=== PATIENT | female | born 1950 | race Caucasian/White ===

== ENCOUNTER → 2016-09-22 | Outpatient (CLI) | payer MEDICARE ==
--- NOTE | 2016-09-23 12:00 | MM ---
Reason for exam: screening (asymptomatic). Last mammogram was performed 1 year and 2 months ago. History: Patient is postmenopausal. Family history of premenopausal breast cancer in sister at age 40. Took estrogen for 2 years 6 months. Physical Findings: A clinical breast exam by your physician is recommended on an annual basis and results should be correlated with mammographic findings. MG 3D Screening Mammo W/Cad Bilateral CC and MLO view(s) were taken. Prior study comparison: July 17, 2015, bilateral MG 3d screening mammo w/cad. July 20, 2012, bilateral digital screening mammo w/CAD. The breast tissue is heterogeneously dense. This may lower the sensitivity of mammography. There is chronic nodularity in the left breast. Loosly grouped calcification in the 2-3 o'clock left breast are unchanged for 2 years. No significant changes when compared with prior studies. ASSESSMENT: Negative, BI-RAD 1 RECOMMENDATION: Routine screening mammogram of both breasts in 1 year.
== END | disposition home or self-care (01) ==
LOC: RADMAMWWP 13:16
PROVIDERS: ATTEND Family Medicine
DX: Z12.31 Encounter for screening mammogram for malignant neoplasm of breast (principal)
CPT/HCPCS: 77063; G0202

== ENCOUNTER 2016-10-19 13:18 | Inpatient (IN) | payer MEDICARE ==
[2016-10-19] MEDS ORDERED: RX INFO: IV CONTRAST WAS GIVEN 1 EACH MISC MISCELLANE PRN (13:23)
[2016-10-19] MEDS ORDERED: SODIUM CHLORIDE 0.9% 1,000 ML IV STA (13:23)
[2016-10-19 13:27] LABS: Glucose,Whole Blood 96 mg/dL (75-99)
[2016-10-19 13:36] LABS: Basophils # (A) 0.1 k/uL (0-0.2); Basophils % (A) 1 %; CHCM 33.5; Eosinophils # (A) 0.3 k/uL (0-0.7); Eosinophils % (A) 4 %; HCT 45.8 % (34.0-46.0); HDW 2.37; HGB 15.4 gm/dL (11.4-16.0); Luc # (Auto) 0.27; Luc % (Auto) 3; Lymphocytes # (A) 2.1 k/uL (1.0-4.8); Lymphocytes % (A) 27 %; MCH 29.1 pg (25.0-35.0); MCHC 33.5 g/dL (31.0-37.0); MCV 86.6 fL (80.0-100.0); Mean Platelet Volume 7.4; Monocytes # (A) 0.4 k/uL (0-1.0); Monocytes % (A) 5 %; Neutrophils # (A) 4.7 k/uL (1.3-7.7); Neutrophils % (A) 60 %; RBC 5.29 m/uL (3.80-5.40); RDW 13.6 % (11.5-15.5); WBC 7.8 k/uL (3.8-10.6); WBC (Perox) 7.83
[2016-10-19 13:44] LABS: ALT 21 U/L (9-52); AST 22 U/L (14-36); Alkaline Phosphatase 109 U/L (38-126); Anion Gap 13 mmol/L; Blood Urea Nitrogen 14 mg/dL (7-17); Calcium 10.1 mg/dL (8.4-10.2); Carbon Dioxide 24 mmol/L (22-30); Chloride 99 mmol/L (98-107); Glucose 102 mg/dL (74-99); Magnesium 2.1 mg/dL (1.6-2.3); Non-African American GFR(MDRD) >60 (>60 ml/min/1.73 sqM); Phosphorous 3.2 mg/dL (2.5-4.5); Sodium 136 mmol/L (137-145); Total Bilirubin 0.8 mg/dL (0.2-1.3); Total Protein 7.6 g/dL (6.3-8.2)
[2016-10-19] MEDS ORDERED: hydrALAZINE HCL 20 MG/ML 1 ML VIAL IVP STA (13:46)
--- NOTE | 2016-10-19 13:46 | ED ---
General Adult HPI - General Chief complaint: Neuro Symptoms/Deficit Stated complaint: POSS CVA Time Seen by Provider: 10/19/16 13:22 Source: EMS, RN notes reviewed, old records reviewed Mode of arrival: EMS Limitations: no limitations - History of Present Illness Initial comments: This is a 66-year-old female ER for evaluation of syncopal event head trauma and unresponsiveness. Patient's unable to give history secondary to clinical condition, not responding, patient brought in by EMS for evaluation of patient, patient having unresponsive episode after falling. History obtained from EMS and staff and patient's chart - Related Data Home Medications Medication Instructions Recorded Confirmed Lisinopril-Hctz 20-12.5 mg 1 tab PO DAILY 05/22/15 10/19/16 [Zestoretic 20-12.5] levETIRAcetam [Keppra] 500 mg PO Q12HR 05/22/15 10/19/16 Levothyroxine Sodium [Synthroid] 88 mcg PO DAILY 12/17/15 10/19/16 Acetaminophen Tab [Tylenol Tab] 325 - 650 mg PO Q6H PRN 10/19/16 10/19/16 Multivitamin [Multivitamins Adult 1 tab PO DAILY 10/19/16 10/19/16 Gummies] [place]-3S/Dha/Epa/Fish Oil/D3 [Fish 1 tab PO DAILY 10/19/16 10/19/16 Oil Gummies] Previous Rx's Medication Instructions Recorded Pantoprazole Sodium [Protonix] 40 mg PO DAILY #90 tablet. 09/06/15 Allergies Allergy/AdvReac Type Severity Reaction Status Date / Time codeine Allergy Unknown Verified 10/19/16 13:52 ibuprofen AdvReac ulcer Verified 10/19/16 13:52 monosodium glutamate [MSG] AdvReac Nausea & Verified 10/19/16 13:52 Vomiting & Diarrhea sodium AdvReac Nausea & Verified 10/19/16 13:23 Vomiting & Diarrhea Review of Systems ROS Statement: Those systems with pertinent positive or pertinent negative responses have been documented in the HPI. ROS Other: All systems not noted in ROS Statement are negative. Past Medical History Past Medical History: CVA/TIA, Hyperlipidemia, Hypertension, Myocardial Infarction ([place]), Osteoarthritis (OA), Seizure Disorder, Syncope, Thyroid Disorder Additional Past Medical History / Comment(s): Seizures-last one in fall of 2014 , syncopal episodes-once due to gastric ulcer bleed with transfusion, possible TIA, DJD, generalized arthritis, hypothyroid, [place] in 2003. Last Myocardial Infarction Date:: 2003 History of Any Multi-Drug Resistant Organisms: None Reported Past Surgical History: Adenoidectomy, Appendectomy, Section, Heart Catheterization, Hysterectomy, Orthopedic Surgery, Tonsillectomy Additional Past Surgical History / Comment(s): 09/06/15 EGD with bx and colonoscopy, C-Sections x3, hammer toe sx ananya feet, gland removed from L side of neck, 2003 cardiac cath Additional Past Anesthesia/Blood Transfusion Reaction / Comment(s): difficulty waking after aa. Pt states she has received blood before without reaction. Past Psychological History: No Psychological Hx Reported Additional Psychological History / Comment(s): Pt resides with spouse and a dog. She is independent. She drives. Smoking Status: Never smoker Past Alcohol Use History: None Reported Past Drug Use History: None Reported - Past Family History Mother Family Medical History: Dementia Additional Family Medical History / Comment(s): Had 13 children. She of dementia at the age of 81 yrs. Father Family Medical History: Myocardial Infarction ([place]) Additional Family Medical History / Comment(s): from head injury General Exam - General Exam Comments Initial Comments: Patient unresponsive, NIH, gaze, dominant left Limitations: no limitations General appearance: alert, in no apparent distress Head exam: Present: atraumatic, normocephalic, normal inspection Eye exam: Present: normal appearance, PERRL, EOMI. Absent: scleral icterus, conjunctival injection, periorbital swelling ENT exam: Present: normal exam, mucous membranes moist Neck exam: Present: normal inspection. Absent: tenderness, meningismus, lymphadenopathy Respiratory exam: Present: normal lung sounds bilaterally. Absent: respiratory distress, wheezes, rales, rhonchi, stridor Cardiovascular Exam: Present: regular rate, normal rhythm, normal heart sounds. Absent: systolic murmur, diastolic murmur, rubs, gallop, clicks GI/Abdominal exam: Present: soft, normal bowel sounds. Absent: distended, tenderness, guarding, rebound, rigid Extremities exam: Present: normal inspection, full ROM, normal capillary refill. Absent: tenderness, pedal edema, joint swelling, calf tenderness Back exam: Present: normal inspection Neurological exam: Present: alert, oriented X3, CN II-XII intact Psychiatric exam: Present: normal affect, normal mood Skin exam: Present: warm, dry, intact, normal color. Absent: rash Course Vital Signs 10/19/16 10/19/16 10/19/16 13:19 13:26 13:32 Pulse Rate 61 58 L 56 L Respiratory 18 18 18 Rate Blood Pressure 202/140 106/59 112/61 O2 Sat by Pulse 98 97 99 Oximetry 10/19/16 10/19/16 13:37 13:52 Pulse Rate 54 L 72 Respiratory 18 18 Rate Blood Pressure 112/62 135/63 O2 Sat by Pulse 100 100 Oximetry - Reevaluation(s) Reevaluation #1: 10/19/16 14:07 Code stroke was paged, neuro interventionalists evaluating patient Reevaluation #2: 10/19/16 14:07 At this time patient's symptoms have returned to baseline, she is awake and alert and NIH of 0 10/19/16 14:07 No gaze preference EKG Findings - EKG Comments: EKG Findings:: EKG shows normal sinus rhythm rate of 86, TX 196, QRS 76, QTC 394 Medical Decision Making - Medical Decision Making 6 mL ER for evaluation of altered mental status, patient originally was neurologic with down gaze, neurological symptoms have resolved, patient does have history of epilepsy buttocks and into no epileptic activity. Patient currently NIH of 0, will admit for neurological evaluation and treatment - Lab Data Result diagrams: 10/19/16 13:23 10/19/16 13:23 Lab Results 10/19/16 10/19/16 10/19/16 Range/Units 13:21 13:23 13:23 WBC 7.8 (3.8-10.6) k/uL RBC 5.29 (3.80-5.40) m/uL Hgb 15.4 (11.4-16.0) gm/dL Hct 45.8 (34.0-46.0) % MCV 86.6 (80.0-100.0) fL MCH 29.1 (25.0-35.0) pg MCHC 33.5 (31.0-37.0) g/dL RDW 13.6 (11.5-15.5) % Plt Count 339 (150-450) k/uL Neutrophils % 60 % Lymphocytes % 27 % Monocytes % 5 % Eosinophils % 4 % Basophils % 1 % Neutrophils # 4.7 (1.3-7.7) k/uL Lymphocytes # 2.1 (1.0-4.8) k/uL Monocytes # 0.4 (0-1.0) k/uL Eosinophils # 0.3 (0-0.7) k/uL Basophils # 0.1 (0-0.2) k/uL PT (9.0-12.0) sec INR (<1.1) APTT (22.0-30.0) sec Sodium (137-145) mmol/L Potassium (3.5-5.1) mmol/L Chloride (98-107) mmol/L Carbon Dioxide (22-30) mmol/L Anion Gap mmol/L BUN (7-17) mg/dL Creatinine (0.52-1.04) mg/dL Est GFR (MDRD) Af Amer (>60 ml/min/1.73 sqM) Est GFR (MDRD) Non-Af (>60 ml/min/1.73 sqM) Glucose (74-99) mg/dL POC Glucose (mg/dL) 96 (75-99) mg/dL POC Glu Director Supplier Quality ID Saeed Agrawal Plasma Lactic Acid Gavino (0.7-2.0) mmol/L Calcium (8.4-10.2) mg/dL Phosphorus (2.5-4.5) mg/dL Magnesium (1.6-2.3) mg/dL Total Bilirubin (0.2-1.3) mg/dL AST (14-36) U/L ALT (9-52) U/L Alkaline Phosphatase (38-126) U/L Total Creatine Kinase 59 (30-135) U/L CK-MB (CK-2) 0.3 (0.0-2.4) ng/mL CK-MB (CK-2) Rel Index 0.5 Troponin I <0.012 (0.000-0.034) ng/mL Total Protein (6.3-8.2) g/dL Albumin (3.5-5.0) g/dL 10/19/16 10/19/16 10/19/16 Range/Units 13:23 13:23 13:23 WBC (3.8-10.6) k/uL RBC (3.80-5.40) m/uL Hgb (11.4-16.0) gm/dL Hct (34.0-46.0) % MCV (80.0-100.0) fL MCH (25.0-35.0) pg MCHC (31.0-37.0) g/dL RDW (11.5-15.5) % Plt Count (150-450) k/uL Neutrophils % % Lymphocytes % % Monocytes % % Eosinophils % % Basophils % % Neutrophils # (1.3-7.7) k/uL Lymphocytes # (1.0-4.8) k/uL Monocytes # (0-1.0) k/uL Eosinophils # (0-0.7) k/uL Basophils # (0-0.2) k/uL PT 10.3 (9.0-12.0) sec INR 1.0 (<1.1) APTT 20.7 L (22.0-30.0) sec Sodium 136 L (137-145) mmol/L Potassium 4.0 (3.5-5.1) mmol/L Chloride 99 (98-107) mmol/L Carbon Dioxide 24 (22-30) mmol/L Anion Gap 13 mmol/L BUN 14 (7-17) mg/dL Creatinine 0.87 (0.52-1.04) mg/dL Est GFR (MDRD) Af Amer >60 (>60 ml/min/1.73 sqM) Est GFR (MDRD) Non-Af >60 (>60 ml/min/1.73 sqM) Glucose 102 H (74-99) mg/dL POC Glucose (mg/dL) (75-99) mg/dL POC Glu Director Supplier Quality ID Plasma Lactic Acid Gavino 2.3 H* (0.7-2.0) mmol/L Calcium 10.1 (8.4-10.2) mg/dL Phosphorus 3.2 (2.5-4.5) mg/dL Magnesium 2.1 (1.6-2.3) mg/dL Total Bilirubin 0.8 (0.2-1.3) mg/dL AST 22 (14-36) U/L ALT 21 (9-52) U/L Alkaline Phosphatase 109 (38-126) U/L Total Creatine Kinase (30-135) U/L CK-MB (CK-2) (0.0-2.4) ng/mL CK-MB (CK-2) Rel Index Troponin I (0.000-0.034) ng/mL Total Protein 7.6 (6.3-8.2) g/dL Albumin 4.5 (3.5-5.0) g/dL - Radiology Data Radiology results: report reviewed (Chest x-ray negative for acute disease, CT brain CTA head and neck is negative for acute embolic stroke), image reviewed Critical Care Time Critical Care Time: Yes Total Critical Care Time: 31 Disposition Clinical Impression: Cerebrovascular accident Disposition: ADMITTED IP TO THIS [facility] Condition: Fair Referrals: Sherwin Hernandez MD [Primary Care Provider] - 1-2 days
[2016-10-19 13:58] LABS: Prothrombin Time 10.3 sec (9.0-12.0)
--- NOTE | 2016-10-19 14:00 | CT ---
EXAMINATION TYPE: CT brain davida wo con DATE OF EXAM: 10/19/2016 1:47 PM COMPARISON: Previous study dated 09/01/2015 HISTORY: Fall, posssible CVA CT DLP: 2078.9 mGycm Automated exposure control for dose reduction was used. FINDINGS: There are mild, generalized changes of sulcal prominence and ventriculomegaly compatible with chronic atrophy. There is diffuse periventricular white matter lucency, compatible with chronic white matter ischemic change. There is no acute focal lesion, mass effect or midline shift identified. I do not s ee evidence of intracranial blood. There is chronic mucoperiosteal thickening involving the left sided maxillary sinus. There is emphysematous change and coarse interstitial fibrosis involving apices of both lungs. This a ppears to have progressed from previous. Prevertebral soft tissues appear unremarkable. Vertebral body height and alignment are maintained. Atlantoaxial relationships are normal. There is diffuse degenerative disc disease, hypertrophic spondylosis and uncovertebral joint disease involving the entire cervical spine with relative sparing of the C2-3 level. No fractures are seen. N o definite discal protrusion is seen. IMPRESSION: 1. NO ACUTE INTRACRANIAL ABNORMALITY. 2. CHRONIC LEFT-SIDED MAXILLARY SINUS DISEASE. 3. NO ACUTE OSSEOUS LESION INVOLVING THE CERVICAL SPINE. 4. DIFFUSE DEGENERATIVE CHANGE.
[2016-10-19 14:01] LABS: Creatine Kinase 59 U/L (30-135)
--- NOTE | 2016-10-19 14:07 | CT ---
EXAMINATION TYPE: CT angio head neck DATE OF EXAM: 10/19/2016 1:59 PM COMPARISON: NONE HISTORY: Fall possible CVA CT DLP: 2078.9 mGycm Automated exposure control for dose reduction was used. TECHNIQUE: Performed with IV Contrast, patient injected with 65 mL of Omnipaque 350. FINDINGS: There is coarse interstitial change and emphysematous change in the visualized portions of the lungs. There is some shotty adenopathy in the deep cervical chain bilaterally, greater on the right than the left. Prevertebral soft tissues are otherwise unremarkable. There is a normal origin of the great vessels. The right vertebral artery is dominant. There is no significant atheromatous change involving either carotid bulb. There is a tiny amount of calcium on the left. There is no significant stenosis in either carotid artery. IMPRESSION: 1. NO SIGNIFICANT STENOSIS IN EITHER CAROTID SYSTEM. 2. MINIMAL ATHEROMATOUS CALCIFICATION OF THE LEFT CAROTID BULB. 3. COARSE INTERSTITIAL CHANGE IN THE UPPER LOBES BILATERALLY.
[2016-10-19 14:10] LABS: Partial Thromboplastin Time 20.7 sec (22.0-30.0)
[2016-10-19 14:13] LABS: Creatine Kinase MB 0.3 ng/mL (0.0-2.4); Troponin I <0.012 ng/mL (0.000-0.034)
[2016-10-19] MEDS ORDERED: ASPIRIN 325 MG TAB PO STA (14:56)
--- NOTE | 2016-10-19 14:58 | XR ---
EXAMINATION TYPE: XR chest 1V portable DATE OF EXAM: 10/19/2016 2:53 PM HISTORY: ams. REFERENCE: Previous study dated 12/17/2015. FINDINGS: The patient has taken a poor inspiration. There is atelectatic change present at both lung bases and in the right upper lobe. The heart is mild ly enlarged. Pleural spaces appear clear. IMPRESSION: 1. CARDIOMEGALY. 2. BIBASILAR ATELECTASIS. 3. AIRSPACE DISEASE IN THE RIGHT UPPER LOBE MAY REPRESENT ADDITIONAL ATELECTASIS OR EARLY PNEUMONIA. PLEASE CORRELATE CLINICALLY.
[2016-10-19] MEDS: SODIUM CHLORIDE 0.9% 1,000 ML IV SCH ×2 (15:39→21:08)
--- NOTE | 2016-10-19 16:02 | US ---
EXAMINATION TYPE: US carotid duplex BILAT DATE OF EXAM: 10/19/2016 3:39 PM COMPARISON: NONE CLINICAL HISTORY: Stenosis, syncope and collapse. EXAM MEASUREMENTS: RIGHT: Peak Systolic Velocity (PSV) cm/sec ----- Right CCA: 47.2 ----- Right ICA: 60.6 ----- Right ECA: 45.3 ICA/CCA ratio: 1.3 RIGHT: End Diastole cm/sec ----- Right CCA: 16.9 ----- Right ICA: 23.0 ----- Right ECA: 0.0 LEFT: Peak Systolic Velocity (PSV) cm/sec ----- Left CCA: 60.1 ----- Left ICA: 58.6 ----- Left ECA: 50.5 ICA/CCA ratio: 1.0 LEFT: End Diastole cm/sec ----- Left CCA: 18.6 ----- Left ICA: 23.4 ----- Left ECA: 6.5 VERTEBRALS (direction of flow): Right Vertebral: Antegrade Left Vertebral: Antegrade TECHNOLOGIST IMPRESSION: No significant velocity increases seen bilaterally. IMPRESSION: I DO NOT SEE EVIDENCE OF A HEMODYNAMICALLY SIGNIFICANT STENOSIS INVOLVING EITHER CAROTID SYSTEM. Criteria for Assigning % of Stenosis / Diameter reduction (Estimation based on the indirect measurements of the internal carotid artery velocities (ICA PSV). 1. Normal (no stenosis)=ICA PSV < 125 cm/s: ratio < 2.0: ICA EDV<40 cm/s. 2. Less than 50% stenosis=ICA PSV < 125 cm/s: ratio < 2.0: ICA EDV<40 cm/s. 3. 50 to 69% stenosis=ICA PSV of 125 to 230 cm/s: ration 2.0 ? 4.0: ICA EDV 40-100 cm/s. 4. Greater than 70% stenosis to near occlusion= ICA PSV > 230 cm/s: ratio > 4.0: ICA EDV > 100 cm/s. 5. Near occlusion= ICA PSV velocities may be low or undetectable: variable ratio and ICA EDV. 6. Total occlusion=unable to detect flow.
[2016-10-19 19:06] VITALS: BMI 32.2
[2016-10-19 19:28] LABS: Appearance,Urine Clear (Clear); Bilirubin,Urine Negative (Negative); Glucose,Urine (UA) Negative (Negative); Ketones,Urine Negative (Negative); Leukocyte Esterase,Urine Negative (Negative); Nitrite,Urine Negative (Negative); PH, Urine 6.5 (5.0-8.0); Protein,Urine Negative (Negative); Specific Gravity,Urine 1.025 (1.001-1.035); UA Billing (MACRO vs. MICRO) CHEM; Urobilinogen,Urine <2.0 mg/dL (<2.0)
[2016-10-19] MEDS: levETIRAcetam 500 MG TAB PO SCH (21:07)
[2016-10-20] MEDS: PANTOPRAZOLE 40 MG TABLET PO SCH (06:52)
[2016-10-20] MEDS: LEVOTHYROXINE 88 MCG TAB PO SCH (06:52)
[2016-10-20] MEDS: LISINOPRIL-HCTZ 20-12.5 MG 1 EACH TAB PO SCH (07:52)
[2016-10-20] MEDS: levETIRAcetam 500 MG TAB PO SCH ×2 (07:52→21:04)
[2016-10-20] MEDS: ASPIRIN 325 MG TAB PO SCH (08:56)
--- NOTE | 2016-10-20 10:41 | ECHOF ---
Referral Reason:Thrombus MEASUREMENTS -------- HEIGHT: 162.6 cm WEIGHT: 69.4 kg BP: 127/68 RVIDd: 3.1 cm (< 3.3) IVSd: 1.4 cm (0.6 - 1.1) LVIDd: 3.7 cm (3.9 - 5.3) LVPWd: 1.2 cm (0.6 - 1.1) IVSs: 1.5 cm LVIDs: 2.6 cm LVPWs: 1.6 cm LA Diam: 3.5 cm (2.7 - 3.8) LAESV Index (A-L): 23.60 ml/m Ao Diam: 2.9 cm (2.0 - 3.7) AV Cusp: 2.0 cm (1.5 - 2.6) MV EXCURSION: 14.317 mm (> 18.000) MV EF SLOPE: 37 mm/s (70 - 150) EPSS: 0.3 cm MV E Edgardo: 0.84 m/s MV DecT: 246 ms MV A Edgardo: 1.07 m/s MV E/A Ratio: 0.79 RAP: 5.00 mmHg RVSP: 28.81 mmHg FINDINGS -------- Sinus rhythm. This was a technically good study. The left ventricular size is normal. There is moderate concentric left ventricular hypertrophy. Overall left ventricular systolic function is normal with, an EF between 60 - 65 %. Sigmoid shaped septum with focal hypertrophy of the basal septum. The right ventricle is normal in size. Normal LA size by volume 22+/-6 ml/m2. The right atrium is normal in size. Aortic valve is trileaflet and is mildly thickened. There is trace to mild mitral regurgitation. Mild tricuspid regurgitation present. Right ventricular systolic pressure is normal at < 35 mmHg. The pulmonic valve is normal. There is no pulmonic regurgitation present. The aortic root size is normal. Normal inferior vena cava with normal inspiratory collapse consistent with estimated right atrial pressure of 5 mmHg. There is no pericardial effusion. CONCLUSIONS -------- 1. Sinus rhythm. 2. Right ventricular systolic pressure is normal at < 35 mmHg. 3. The pulmonic valve is normal. 4. The aortic root size is normal. 5. Normal inferior vena cava with normal inspiratory collapse consistent with estimated right atrial pressure of 5 mmHg. 6. There is no pericardial effusion. 7. This was a technically good study. 8. Sigmoid shaped septum with focal hypertrophy of the basal septum. 9. The right ventricle is normal in size. 10. Normal LA size by volume 22+/-6 ml/m2. 11. The right atrium is normal in size. 12. Aortic valve is trileaflet and is mildly thickened. 13. There is trace to mild mitral regurgitation. 14. Mild tricuspid regurgitation present. REGULATORY AFFAIRS ANALYST: Ntay Vogt RDCS
[2016-10-20] MEDS: MULTIVITAMINS, THERA 1 EACH TAB PO SCH (11:52)
[2016-10-20] MEDS: SODIUM CHLORIDE 0.9% 1,000 ML IV SCH ×2 (11:53→21:04)
--- NOTE | 2016-10-20 17:16 | P.HPIM ---
History of Present Illness H&P Date: 10/20/16 Chief Complaint: Syncope This is a 66-year-old female with history of seizure disorder comes into the hospital after patient had a syncopal episode while patient was urinating. Patient prior to admission apparently has not been feeling well her oral intake has been decreased. Patient stated that she went to the bathroom was attempting to urinate thereafter felt dizzy called for her who was at trying to help her however walked out to call EMS. Patient apparently fell hit her face bruising her right side of the orbit. Patient was brought to the ER patient did really consciousness immediately however in the ER patient was noted to have a downward gaze with some concern for acute stroke patient was seen by interventional neurology. Asians and I score was 0. This was at 1 AM in the morning. Today patient denies having any any additional complaints including headache, dizziness, nausea, vomiting, diarrhea. Patient was able to ambulate without any difficulty. No cardiac dysrhythmias were reported on the telemetry. Cardiac echocardiogram and carotid studies were within normal limits. Patient has any weakness or numbness at this time. Denies having any previous history of strokes. Patient's history is significant for seizure disorder and has not had a seizure in over a year. Review of Systems All systems: negative (Noted in HPI) Past Medical History Past Medical History: CVA/TIA, Hyperlipidemia, Hypertension, Myocardial Infarction ([place]), Osteoarthritis ([place]), Seizure Disorder, Syncope, Thyroid Disorder Additional Past Medical History / Comment(s): Seizures-last one in fall of 2014 , syncopal episodes-once due to gastric ulcer bleed with transfusion, possible TIA, DJD, generalized arthritis, hypothyroid, [place] in 2003. Last Myocardial Infarction Date:: 2003 History of Any Multi-Drug Resistant Organisms: None Reported Past Surgical History: Adenoidectomy, Appendectomy, Section, Heart Catheterization, Hysterectomy, Orthopedic Surgery, Tonsillectomy Additional Past Surgical History / Comment(s): 09/06/15 EGD with bx and colonoscopy, C-Sections x3, hammer toe sx ananya feet, gland removed from L side of neck, 2003 cardiac cath Additional Past Anesthesia/Blood Transfusion Reaction / Comment(s): difficulty waking after aa. Pt states she has received blood before without reaction. Past Psychological History: No Psychological Hx Reported Additional Psychological History / Comment(s): Pt resides with spouse and a dog. She is independent. She drives. Smoking Status: Never smoker Past Alcohol Use History: None Reported Past Drug Use History: None Reported - Past Family History Mother Family Medical History: Dementia Additional Family Medical History / Comment(s): Had 13 children. She of dementia at the age of 81 yrs. Father Family Medical History: Myocardial Infarction ([place]) Additional Family Medical History / Comment(s): from head injury Medications and Allergies Home Medications Medication Instructions Recorded Confirmed Type Lisinopril-Hctz 20-12.5 mg 1 tab PO DAILY 05/22/15 10/19/16 History [Zestoretic 20-12.5] levETIRAcetam [Keppra] 500 mg PO Q12HR 05/22/15 10/19/16 History Levothyroxine Sodium [Synthroid] 88 mcg PO DAILY 12/17/15 10/19/16 History Acetaminophen Tab [Tylenol Tab] 325 - 650 mg PO Q6H PRN 10/19/16 10/19/16 History Multivitamin [Multivitamins Adult 1 tab PO DAILY 10/19/16 10/19/16 History Gummies] [place]-3S/Dha/Epa/Fish Oil/D3 [Fish 1 tab PO DAILY 10/19/16 10/19/16 History Oil Gummies] Allergies Allergy/AdvReac Type Severity Reaction Status Date / Time codeine Allergy Unknown Verified 10/19/16 13:52 ibuprofen AdvReac ulcer Verified 10/19/16 13:52 monosodium glutamate [MSG] AdvReac Nausea & Verified 10/19/16 13:52 Vomiting & Diarrhea sodium AdvReac Nausea & Verified 10/19/16 13:23 Vomiting & Diarrhea Physical Exam Vitals: Vital Signs Temp Pulse Pulse Pulse Resp BP BP 10/20/16 15:30 97.3 F L 55 L 18 139/83 10/20/16 12:00 54 L 17 154/83 10/20/16 08:00 97 F L 67 18 144/78 10/20/16 04:00 98.3 F 68 16 127/68 10/20/16 00:00 98.8 F 69 16 137/78 10/19/16 20:00 97.7 F 60 16 143/83 10/19/16 18:00 97.6 F 60 18 148/83 10/19/16 17:38 97.0 F L 55 L 18 141/73 Pulse Ox 10/20/16 15:30 94 L 10/20/16 12:00 95 10/20/16 08:00 98 10/20/16 04:00 94 L 10/20/16 00:00 96 10/19/16 20:00 93 L 10/19/16 18:00 97 10/19/16 17:38 99 Intake and Output 10/20/16 10/20/16 10/20/16 06:59 14:59 22:59 Intake Total 600 910 Output Total 950 550 200 Balance -350 360 -200 Intake: IV 600 700 Sodium Chloride 0.9% 1, 600 700 000 ml @ 100 mls/hr IV . Q10H LOY Rx#:[id number] Oral 210 Output: Urine 950 550 200 Other: Voiding Method Toilet # Voids 1 Weight 69.5 kg Physical exam Gen. appearance oriented 3 in no distress Neck is supple no JVD Lungs good air entry clear to auscultation no rhonchi or wheezing Heart S1-S2 heard regular rate and rhythm no murmurs appreciated Abdomen is soft nontender no organomegaly bowel sounds are intact Neurologically cranial nerves II-12 grossly intact no focal motor or sensory deficits noted no dysdiadochokinesia. Strength is 5 out of 5 in all 4 extremities. Para graft is able to repeat 3 words after 10 minutes. Ecchymosis noted around the right orbit Results CBC & Chem 7: 10/19/16 13:23 10/19/16 13:23 Labs: Microbiology - Last 24 Hours (Table) 10/19/16 18:52 Urine Culture - Preliminary Urine,Clean Catch Thrombosis Risk Factor Assmnt - Choose All That Apply Any of the Below Risk Factors Present?: No Each Risk Factor Represents 2 Points: Age 61-74 years Other congenital or acquired thrombophilia - If yes, enter type in comment: No Thrombosis Risk Factor Assessment Total Risk Factor Score: 2 Thrombosis Risk Factor Assessment Level: Low Risk Assessment and Plan Plan: #1 syncope likely vasovagal #2 rule out acute CVA #3 history of hypertension. #4 history of seizure disorder #5 hypothyroidism #6 dyslipidemia Plan Continue telemetry monitoring. Echo and carotid studies were reviewed. Await neurology recommendations. Will likely be monitored at least over 24 hours if patient does not have any neurological changes will likely be discharged home thereafter.
--- NOTE | 2016-10-20 18:05 | P.CNNES ---
History of Present Illness Consult date: 10/20/16 History of Present Illness: The patient is a 66-year-old woman who states that she was sitting on the toilet and suddenly felt unwell. She describes it as a sense of feeling bloated. She asked her to help and he came to assist her but the phone raining and he dropped her. She states she hit her head on the tub. She denies any headache. Dates she of didn't lose consciousness. Is unclear how long she was out. EMS was called and she was brought to the emergency room. She states she has passed out 2 years ago. He does not drive. His admitte she gives a previous history of seizures the last one being in the fall. She is taking Keppra 500 mg every 12 hours. d to the hospital for syncopal episode. She had a CTA of the brain which was negative. She had a echo and carotid ultrasound which were unremarkable. Review of Systems Constitutional: Denies chills, Denies fever Eyes: denies blurred vision, denies pain Ears, nose, mouth and throat: Denies headache, Denies sore throat Cardiovascular: Denies chest pain, Denies shortness of breath Respiratory: Denies cough Gastrointestinal: Denies abdominal pain, Denies diarrhea, Denies nausea, Denies vomiting Genitourinary: Denies dysuria, Denies hematuria Musculoskeletal: Denies myalgias Integumentary: Denies pruritus, Denies rash Neurological: Denies numbness, Denies weakness Psychiatric: Denies anxiety, Denies depression Endocrine: Denies fatigue, Denies weight change Past Medical History Past Medical History: CVA/TIA, Hyperlipidemia, Hypertension, Myocardial Infarction ([place]), Osteoarthritis (OA), Seizure Disorder, Syncope, Thyroid Disorder Additional Past Medical History / Comment(s): Seizures-last one in fall , syncopal episodes-once due to gastric ulcer bleed with transfusion, possible TIA, DJD, generalized arthritis, hypothyroid, [place] in 2003. Last Myocardial Infarction Date:: 2003 History of Any Multi-Drug Resistant Organisms: None Reported Past Surgical History: Adenoidectomy, Appendectomy, Section, Heart Catheterization, Hysterectomy, Orthopedic Surgery, Tonsillectomy Additional Past Surgical History / Comment(s): 09/06/15 EGD with bx and colonoscopy, C-Sections x3, hammer toe sx ananya feet, gland removed from L side of neck, 2003 cardiac cath Additional Past Anesthesia/Blood Transfusion Reaction / Comment(s): difficulty waking after aa. Pt states she has received blood before without reaction. Past Psychological History: No Psychological Hx Reported Additional Psychological History / Comment(s): Pt resides with spouse and a dog. She is independent. She drives. Smoking Status: Never smoker Past Alcohol Use History: None Reported Past Drug Use History: None Reported - Past Family History Mother Family Medical History: Dementia Additional Family Medical History / Comment(s): Had 13 children. She of dementia at the age of 81 yrs. Father Family Medical History: Myocardial Infarction ([place]) Additional Family Medical History / Comment(s): from head injury Medications and Allergies Home Medications Medication Instructions Recorded Confirmed Type Lisinopril-Hctz 20-12.5 mg 1 tab PO DAILY 05/22/15 10/19/16 History [Zestoretic 20-12.5] levETIRAcetam [Keppra] 500 mg PO Q12HR 05/22/15 10/19/16 History Levothyroxine Sodium [Synthroid] 88 mcg PO DAILY 12/17/15 10/19/16 History Acetaminophen Tab [Tylenol Tab] 325 - 650 mg PO Q6H PRN 10/19/16 10/19/16 History Multivitamin [Multivitamins Adult 1 tab PO DAILY 10/19/16 10/19/16 History Gummies] [place]-3S/Dha/Epa/Fish Oil/D3 [Fish 1 tab PO DAILY 10/19/16 10/19/16 History Oil Gummies] Allergies Allergy/AdvReac Type Severity Reaction Status Date / Time codeine Allergy Unknown Verified 10/19/16 13:52 ibuprofen AdvReac ulcer Verified 10/19/16 13:52 monosodium glutamate [MSG] AdvReac Nausea & Verified 10/19/16 13:52 Vomiting & Diarrhea sodium AdvReac Nausea & Verified 10/19/16 13:23 Vomiting & Diarrhea Physical Examination - Vital Signs Vital Signs: Vital Signs Temp Pulse Pulse Resp BP Pulse Ox 10/20/16 15:30 97.3 F L 55 L 18 139/83 94 L 10/20/16 12:00 54 L 17 154/83 95 10/20/16 08:00 97 F L 67 18 144/78 98 10/20/16 04:00 98.3 F 68 16 127/68 94 L 10/20/16 00:00 98.8 F 69 16 137/78 96 10/19/16 20:00 97.7 F 60 16 143/83 93 L 10/19/16 18:00 97.6 F 60 18 148/83 97 Intake and Output 10/20/16 10/20/16 10/20/16 06:59 14:59 22:59 Intake Total 600 910 Output Total 950 550 200 Balance -350 360 -200 Intake: IV 600 700 Sodium Chloride 0.9% 1, 600 700 000 ml @ 100 mls/hr IV . Q10H LOY Rx#:[id number] Oral 210 Output: Urine 950 550 200 Other: Voiding Method Toilet # Voids 1 Weight 69.5 kg - EENT EENT: PERRL, hearing intact, vision intact - Respiratory Respiratory: lungs clear, normal breath sounds - Cardiovascular Cardiovascular: regular rate, normal S1 - Integumentary Integumentary: normal - Neurologic Mental status she was awake alert and oriented she answers questions appropriately there is no a aphasia or dysarthria Cranial nerve examination: PERRL, EOMI, V1/V2/V3 grossly intact, face symmetric , tongue midline Speech examination: intact Detailed motor examination: grossly full strength in all extremities Detailed sensory examination: intact - Psychiatric Psychiatric: mood/affect appropriate Results - Laboratory Findings CBC and BMP: 10/19/16 13:23 10/19/16 13:23 Assessment and Plan (1) Syncope Status: Acute Code(s): R55 - SYNCOPE AND COLLAPSE (2) Epilepsy Status: Chronic Code(s): G40.909 - EPILEPSY, UNSP, NOT INTRACTABLE, WITHOUT STATUS EPILEPTICUS Plan: The patient is a 66-year-old woman with history of syncopal event. Apparently she was feeling lightheaded and her helped her up on the toilet and then dropped her when he ran for the phone. She did hit her head. She denies any headache. She had a TIA workup including carotid ultrasound and echocardiogram and a CTA which were unremarkable. Recommend EEG. She gives a history of seizures and last one being in 2015. She is aware of the [employer] driving law states she does not drive.
[2016-10-20 21:23] VITALS: RESP 16
[2016-10-21] MEDS: LEVOTHYROXINE 88 MCG TAB PO SCH (06:48)
[2016-10-21] MEDS: PANTOPRAZOLE 40 MG TABLET PO SCH (06:48)
[2016-10-21] MEDS: SODIUM CHLORIDE 0.9% 1,000 ML IV SCH (06:49)
[2016-10-21] MEDS: LISINOPRIL-HCTZ 20-12.5 MG 1 EACH TAB PO SCH (09:02)
[2016-10-21] MEDS: levETIRAcetam 500 MG TAB PO SCH (09:02)
[2016-10-21] MEDS: ASPIRIN 325 MG TAB PO SCH (09:02)
[2016-10-21 11:27] VITALS: BP 155/77; PULSE 88; TEMP 97.9
[2016-10-21] MEDS: MULTIVITAMINS, THERA 1 EACH TAB PO SCH (12:18)
--- NOTE | 2016-10-21 12:54 | P.DS ---
Providers Date of admission: 10/19/16 14:56 Expected date of discharge: 10/21/16 Attending physician: Jelani Higuera Primary care physician: Sherwin Hernandez [facility] Course: 66-year-old female was admitted to the emergency room for a syncopal episode. Patient was evaluated by neurology. CVA ruled out. Patient stable and requesting discharge at this time Assessment syncopal episode vasovagal seizure disorder hypertension hypothyroidism Plan discharge home follow up with Dr. Maurer Patient Condition at Discharge: Fair Plan - Discharge Summary Discharge Medication List Lisinopril-Hctz 20-12.5 mg [Zestoretic 20-12.5] 1 tab PO DAILY 05/22/15 [History ] levETIRAcetam [Keppra] 500 mg PO Q12HR 05/22/15 [History] Pantoprazole Sodium [Protonix] 40 mg PO DAILY #90 tablet. 09/06/15 [Rx] Levothyroxine Sodium [Synthroid] 88 mcg PO DAILY 12/17/15 [History] Acetaminophen Tab [Tylenol] 325 - 650 mg PO Q6H PRN 10/19/16 [History] Multivitamin [Multivitamins Adult Gummies] 1 tab PO DAILY 10/19/16 [History] [place]-3S/Dha/Epa/Fish Oil/D3 [Fish Oil Gummies] 1 tab PO DAILY 10/19/16 [History ] Aspirin 325 mg PO DAILY tab 10/21/16 [Rx] Follow up Appointment(s)/Referral(s): Sherwin Hernandez MD [Primary Care Provider] - 1-2 days Yakov Maurer DO [STAFF PHYSICIAN] - 1 Week Activity/Diet/Wound Care/Special Instructions: NO DRIVING FOR 6 MONTHS
--- NOTE | 2016-10-22 08:36 | EEG ---
DATE OF SERVICE: 10/21/2016 INDICATIONS FOR EXAMINATION: This patient is a 66-year-old female being evaluated for syncope versus seizure. AGE: 66Y EEG FINDINGS: A routine 21-channel, awake digital EEG recording was accomplished utilizing the 10 - 20 international system with bipolar and referential montages. The background activity in the most alert resting state consists of a low to medium amplitude, fairly well-developed and well sustained 7 - 8 Hz activity over the posterior head regions. This posterior rhythm attenuates to eye opening. There is a small amount of low amplitude 18 - 20 Hz beta activity seen maximally over the anterior head regions. Muscle and movement artifact was observed on a few occasions during the tracing. Hyperventilation was not performed. Photic stimulation at flash frequencies of 2 - 30 Hz produced a good symmetrical occipital driving response. No epileptiform discharges were seen. IMPRESSION: This EEG is normal for the patient's age. The EEG failed to reveal any focal, lateralized or epileptiform abnormalities. Clinical correlation is recommended.
== END 2016-10-21 13:51 | disposition home or self-care (01) | DRG 312 ==
LOC: EC 13:18 → 6SEL 14:56
PROVIDERS: ADMIT Hospitalist; ATTEND Hospitalist
DX: R55 Syncope and collapse (principal); E87.2 Acidosis; I10 Essential (primary) hypertension; I25.2 Old myocardial infarction; G40.909 Epilepsy, unspecified, not intractable, without status epilepticus; M19.90 Unspecified osteoarthritis, unspecified site; E03.9 Hypothyroidism, unspecified; E78.5 Hyperlipidemia, unspecified; R14.0 Abdominal distension (gaseous); R29.700 NIHSS score 0; S00.83XA Contusion of other part of head, initial encounter; Z82.49 Family history of ischemic heart disease and other diseases of the circulatory system; Z87.11 Personal history of peptic ulcer disease; Z86.73 Personal history of transient ischemic attack (TIA), and cerebral infarction without residual deficits; Z88.5 Allergy status to narcotic agent; Z88.6 Allergy status to analgesic agent; Z79.899 Other long term (current) drug therapy; Z90.49 Acquired absence of other specified parts of digestive tract; Z90.710 Acquired absence of both cervix and uterus; Z82.0 Family history of epilepsy and other diseases of the nervous system; Z91.02 Food additives allergy status; W01.198A Fall on same level from slipping, tripping and stumbling with subsequent striking against other object, initial encounter; Y93.89 Activity, other specified; Y92.012 Bathroom of single-family (private) house as the place of occurrence of the external cause
CPT/HCPCS: 36415; 70450; 70496; 70498; 71010; 72125; 80053; 81003; 82550; 82553; 83605; 83735; 84100; 84484; 85025; 85610; 85730; 87086; 93005; 93306; 93880; 95819; 96360; 96361; 99291

== ENCOUNTER → 2017-10-21 | Outpatient (CLI) | payer MEDICARE ==
--- NOTE | 2017-10-21 15:49 | BD ---
EXAMINATION TYPE: MG DEXA axial skeleton. DATE OF EXAM: 10/21/2017 COMPARISON: NONE CLINICAL HISTORY: Height: 5 FT 1 1/4 IN Weight: 167 FRAX RISK QUESTIONS: Alcohol (3 or more units per day): NO Family History (Parent hip fracture): NO Glucocorticoids (More than 3mos): NO (Ex: prednisone, prednisolone, methylprednisolone, dexamethasone, and hydrocortisone). History of Fracture in Adulthood: NO Secondary Osteoporosis: 1. Type 1 Diabetes: NO 2. Hyperthyroidism: NO 3. Menopause before 45: YES 4. Malnutrition: NO 5. Chronic liver disease: NO Rheumatoid Arthritis: NO Current Tobacco Use: NO RISK FACTORS HISTORY OF: Active: YES Postmenopausal woman: TOTAL HYST AGE 39 MEDICATIONS: Thyroid Medications: YES Which medication: LEVOTHYROXINE How Lon YEARS Additional Medications: LEVOTHYROXINE ,BLOOD PRESSURE MEDS, CHOLESTEROL MEDS, SEIZURE MEDS Additional History: EXAM MEASUREMENTS: Bone mineral densitometry was performed using the [employer] System. Bone mineral density as measured about the Lumbar spine is: ----- L1-L4(G/cm2): 1.126 T Score Values are as follows: ----- L2: -1.0 ----- L3: 0.0 ----- L4: 0.3 ----- L1-L4: -0.5 Bone mineral density has: DECREASED -3.5 % since study of: 2014 Bone mineral density about the R hip (g/cm2): 0.858 Bone mineral density about the L hip (g/cm2): 0.873 T Score values are as follows: -----R Neck: -1.3 -----L Neck: -1.2 -----R Total: -0.7 -----L Total: -0.9 Bone mineral density has: DECREASED -4.0 % since study of: 2014 IMPRESSION: Osteopenia (T Score between -2.5 and -1). There is slightly increased risk of fracture and the patient may be considered for treatment. Re-Screen 2-5 years. NOTE: T-SCORE=SD OF THE YOUNG ADULT MEAN.
--- NOTE | 2017-10-22 09:27 | MM ---
Reason for exam: screening (asymptomatic). Last mammogram was performed 1 year and 1 month ago. History: Patient is postmenopausal. Family history of premenopausal breast cancer in sister at age 40. Took estrogen for 2 years 6 months. Physical Findings: A clinical breast exam by your physician is recommended on an annual basis and results should be correlated with mammographic findings. MG 3D Screening Mammo W/Cad Bilateral CC and MLO view(s) were taken. Prior study comparison: September 22, 2016, bilateral MG 3d screening mammo w/cad. July 17, 2015, bilateral MG 3d screening mammo w/cad. The breast tissue is heterogeneously dense. This may lower the sensitivity of mammography. Finding: There is a high spiculated architectural distortion in the upper quadrant, posterior position of the right breast on MLO view, not evident on tomosynthesis or repeat MLO views, not on CC view, likely summation. New finding since September 22, 2016 and July 17, 2015. ASSESSMENT: Probably benign, BI-RAD 3 RECOMMENDATION: Follow-up diagnostic mammogram of the right breast in 6 months.
== END | disposition home or self-care (01) ==
LOC: RADMAMWWP 14:27
PROVIDERS: ATTEND Family Medicine
DX: Z12.31 Encounter for screening mammogram for malignant neoplasm of breast (principal); M85.80 Other specified disorders of bone density and structure, unspecified site; Z78.0 Asymptomatic menopausal state
CPT/HCPCS: 77063; 77067; 77080

== ENCOUNTER 2018-10-01 13:49 | Emergency (ER) | payer MEDICARE ==
[2018-10-01 14:12] VITALS: RESP 18; TEMP 97.8
[2018-10-01] MEDS ORDERED: SODIUM CHLORIDE 0.9% 1,000 ML IV STA (15:16)
--- NOTE | 2018-10-01 15:20 | ED ---
General Adult HPI - General Chief complaint: Syncope Stated complaint: syncope Time Seen by Provider: 10/01/18 14:53 Source: patient, EMS Mode of arrival: EMS Limitations: no limitations - History of Present Illness Initial comments: Dictation was produced using [employer] dictation software. please excuse any grammatical, word or spelling errors. Chief Complaint: 68-year-old female with past medical history of seizure disorder, coronary artery disease, syncope, CVA presents with episode of syncope today. History of Present Illness: She is a 68-year-old female presents with episode of syncope. She was at the [facility] where her was getting a haircut. She stated one to the bathroom. She had 2 large amounts of diarrhea. She was in the bathroom. She syncopized which was unwitnessed. Patient was in the bathroom for approximately 20 minutes when she was discovered by [employer] employees that patient was unresponsive. Patient was allegedly at [facility] yesterday with her for . Patient denies any complaints at this time. Patient has had 5 episodes of this within the last 10 years. She had cardiac workup that was found to be negative. She does report having had an echocardiogram at least 2 years ago at [facility]. Patient denies any tongue pain. She was obtunded for approximately 5 minutes while she was in the ambulance rig she became responsive again. Patient has no complaints at this time. The ROS documented in this emergency department record has been reviewed and confirmed by me. Those systems with pertinent positive or negative responses have been documented in the HPI. All other systems are other negative and/or noncontributory. PHYSICAL EXAM: General Impression: Alert and oriented x3, not in acute distress HEENT: Normocephalic atraumatic, extra-ocular movements intact, pupils equal and reactive to light bilaterally, mucous membranes moist. Cardiovascular: Heart regular rate and rhythm, S1&S2 audible, no murmurs, rubs or gallops Chest: Lungs clear to auscultation bilaterally, no rhonchi, no wheeze, no rales Abdomen: Bowel sounds present, abdomen soft, non-tender, non-distended, no organomegaly Musculoskeletal: Pulses present and equal in all extremities, no peripheral edema Motor: Power 5/5 bilaterally, no focal deficits noted Neurological: CN II-XII grossly intact, no focal motor or sensory deficits noted Skin: Intact with no visualized rashes Psych: Normal affect and mood ED course: 68-year-old female past medical history of seizure, syncope and coronary artery disease presents after syncope today. Vital signs upon arrival are within acceptable limits.Laboratory evaluation obtained. CBC, coag panel, metabolic panel is unremarkable. Cardiac enzymes negative. Chest x-ray is unremarkable. At this point is unclear what exactly caused patient's syncope. She reports she's had this before and has had negative workup. Patient also has history of seizure. Discussed patient that I Aden for her to be admitted observation for cardiac monitoring and cardiology consultation however she refused. She reports that she can get this done outpatient. She is aware that she can have recurrent symptoms that may persist longer causing significant brain and cardiac disease. Patient given 1 g of Keppra for the possibility that she has subtherapeutic Keppra. Keppra level pending. Patient is well- appearing. She is asymptomatic. I believe discharge is a reasonable disposition given that she has a good social situation and to return if need be. She is on the care of her who can watch her. Told to return if she has recurrent symptoms. Patient and are understandable and agreeable to plan. Patient still to remain at bedrest follow-up with PCP on Thursday. She is told to avoid any exertional activity. EKG interpretation: Ventricular rate 57, sinus bradycardia, NH interval 156, QS 70, QTC 418. No NH prolongation, no QTC prolongation, no ST or T-wave changes noted. Overall, this EKG is unremarkable - Related Data Home Medications Medication Instructions Recorded Confirmed Lisinopril-Hctz 20-12.5 mg 1 tab PO DAILY 05/22/15 10/01/18 [Zestoretic 20-12.5] levETIRAcetam [Keppra] 500 mg PO Q12HR 05/22/15 10/01/18 Levothyroxine Sodium [Synthroid] 88 mcg PO DAILY 12/17/15 10/01/18 Atorvastatin [Lipitor] 20 mg PO DAILY 07/15/17 10/01/18 Allergies Allergy/AdvReac Type Severity Reaction Status Date / Time codeine Allergy Unknown Verified 10/01/18 14:41 ibuprofen AdvReac ulcer Verified 10/01/18 14:41 monosodium glutamate [MSG] AdvReac Nausea & Verified 10/01/18 14:41 Vomiting & Diarrhea sodium AdvReac Nausea & Verified 10/01/18 14:41 Vomiting & Diarrhea Review of Systems ROS Statement: Those systems with pertinent positive or pertinent negative responses have been documented in the HPI. ROS Other: All systems not noted in ROS Statement are negative. Past Medical History Past Medical History: Chest Pain / Angina, CVA/TIA, Hyperlipidemia, Hypertension , Myocardial Infarction ([place]), Osteoarthritis (OA), Seizure Disorder, Syncope, Thyroid Disorder Additional Past Medical History / Comment(s): Seizures-last one in fall of 2014 , syncopal episode-once due to gastric ulcer bleed .given transfusionTIA(no residual problems), DJD, generalized arthritis, hypothyroid, [place] in 2003. Last Myocardial Infarction Date:: 2003 History of Any Multi-Drug Resistant Organisms: None Reported Past Surgical History: Adenoidectomy, Appendectomy, Section, Heart Catheterization, Hysterectomy, Orthopedic Surgery, Tonsillectomy Additional Past Surgical History / Comment(s): 09/06/15 EGD with bx(neg) and colonoscopy, C-Sections x3, hammer toe sx ananya feet, gland removed from L side of neck, 2003 cardiac cath Additional Past Anesthesia/Blood Transfusion Reaction / Comment(s): difficulty waking after aa. Pt states she has received blood before without reaction. Past Psychological History: No Psychological Hx Reported Smoking Status: Never smoker Past Alcohol Use History: None Reported Past Drug Use History: None Reported - Past Family History Mother Family Medical History: Dementia Additional Family Medical History / Comment(s): Had 13 children. She of dementia at the age of 81 yrs. Father Family Medical History: Myocardial Infarction ([place]) Additional Family Medical History / Comment(s): from head injury General Exam Limitations: no limitations Course Vital Signs 10/01/18 13:59 Temperature 97.8 F Pulse Rate 55 L Respiratory 18 Rate Blood Pressure 104/61 O2 Sat by Pulse 92 L Oximetry Medical Decision Making - Lab Data Result diagrams: 10/01/18 14:36 10/01/18 14:36 Lab Results 10/01/18 10/01/18 10/01/18 Range/Units 14:36 14:36 14:36 WBC 4.9 (3.8-10.6) k/uL RBC 4.95 (3.80-5.40) m/uL Hgb 14.4 (11.4-16.0) gm/dL Hct 44.8 (34.0-46.0) % MCV 90.6 (80.0-100.0) fL MCH 29.2 (25.0-35.0) pg MCHC 32.2 (31.0-37.0) g/dL RDW 13.1 (11.5-15.5) % Plt Count 243 (150-450) k/uL Neutrophils % 71 % Lymphocytes % 16 % Monocytes % 6 % Eosinophils % 4 % Basophils % 1 % Neutrophils # 3.5 (1.3-7.7) k/uL Lymphocytes # 0.8 L (1.0-4.8) k/uL Monocytes # 0.3 (0-1.0) k/uL Eosinophils # 0.2 (0-0.7) k/uL Basophils # 0.0 (0-0.2) k/uL PT (9.0-12.0) sec INR (<1.2) APTT (22.0-30.0) sec Sodium 137 (137-145) mmol/L Potassium 3.9 (3.5-5.1) mmol/L Chloride 102 (98-107) mmol/L Carbon Dioxide 28 (22-30) mmol/L Anion Gap 7 mmol/L BUN 14 (7-17) mg/dL Creatinine 0.65 (0.52-1.04) mg/dL Est GFR (CKD-EPI)AfAm >90 (>60 ml/min/1.73 sqM) Est GFR (CKD-EPI)NonAf >90 (>60 ml/min/1.73 sqM) Glucose 88 (74-99) mg/dL Calcium 9.1 (8.4-10.2) mg/dL Magnesium 2.0 (1.6-2.3) mg/dL Total Bilirubin 0.5 (0.2-1.3) mg/dL AST 26 (14-36) U/L ALT 36 (9-52) U/L Alkaline Phosphatase 66 (38-126) U/L Total Creatine Kinase 61 (30-135) U/L CK-MB (CK-2) 0.7 (0.0-2.4) ng/mL CK-MB (CK-2) Rel Index 1.1 Troponin I <0.012 (0.000-0.034) ng/mL Total Protein 6.5 (6.3-8.2) g/dL Albumin 3.8 (3.5-5.0) g/dL 10/01/18 Range/Units 14:36 WBC (3.8-10.6) k/uL RBC (3.80-5.40) m/uL Hgb (11.4-16.0) gm/dL Hct (34.0-46.0) % MCV (80.0-100.0) fL MCH (25.0-35.0) pg MCHC (31.0-37.0) g/dL RDW (11.5-15.5) % Plt Count (150-450) k/uL Neutrophils % % Lymphocytes % % Monocytes % % Eosinophils % % Basophils % % Neutrophils # (1.3-7.7) k/uL Lymphocytes # (1.0-4.8) k/uL Monocytes # (0-1.0) k/uL Eosinophils # (0-0.7) k/uL Basophils # (0-0.2) k/uL PT 9.7 (9.0-12.0) sec INR 0.9 (<1.2) APTT 22.7 (22.0-30.0) sec Sodium (137-145) mmol/L Potassium (3.5-5.1) mmol/L Chloride (98-107) mmol/L Carbon Dioxide (22-30) mmol/L Anion Gap mmol/L BUN (7-17) mg/dL Creatinine (0.52-1.04) mg/dL Est GFR (CKD-EPI)AfAm (>60 ml/min/1.73 sqM) Est GFR (CKD-EPI)NonAf (>60 ml/min/1.73 sqM) Glucose (74-99) mg/dL Calcium (8.4-10.2) mg/dL Magnesium (1.6-2.3) mg/dL Total Bilirubin (0.2-1.3) mg/dL AST (14-36) U/L ALT (9-52) U/L Alkaline Phosphatase (38-126) U/L Total Creatine Kinase (30-135) U/L CK-MB (CK-2) (0.0-2.4) ng/mL CK-MB (CK-2) Rel Index Troponin I (0.000-0.034) ng/mL Total Protein (6.3-8.2) g/dL Albumin (3.5-5.0) g/dL Disposition Clinical Impression: Syncope Disposition: HOME SELF-CARE Condition: Good Is patient prescribed a controlled substance at d/c from ED?: No Referrals: Sherwin Hernandez MD [Primary Care Provider] - 1-2 days Time of Disposition: 18:35
[2018-10-01] MEDS ORDERED: levETIRAcetam IV 1,000 MG in SALINE 1 100ML.BAG IVPB STA (15:23)
[2018-10-01 15:31] LABS: Basophils % (A) 1 %; Eosinophils # (A) 0.2 k/uL (0-0.7); Eosinophils % (A) 4 %; HCT 44.8 % (34.0-46.0); HGB 14.4 gm/dL (11.4-16.0); Lymphocytes # (A) 0.8 k/uL (1.0-4.8); Lymphocytes % (A) 16 %; MCH 29.2 pg (25.0-35.0); MCHC 32.2 g/dL (31.0-37.0); MCV 90.6 fL (80.0-100.0); Mean Platelet Volume 7.1; Monocytes # (A) 0.3 k/uL (0-1.0); Monocytes % (A) 6 %; Neutrophils # (A) 3.5 k/uL (1.3-7.7); Neutrophils % (A) 71 %; Platelet Count 243 k/uL (150-450); RBC 4.95 m/uL (3.80-5.40); RDW 13.1 % (11.5-15.5); WBC 4.9 k/uL (3.8-10.6)
[2018-10-01 15:41] LABS: ALT 36 U/L (9-52); AST 26 U/L (14-36); Albumin 3.8 g/dL (3.5-5.0); Alkaline Phosphatase 66 U/L (38-126); Anion Gap 7 mmol/L; Blood Urea Nitrogen 14 mg/dL (7-17); Calcium 9.1 mg/dL (8.4-10.2); Carbon Dioxide 28 mmol/L (22-30); Chloride 102 mmol/L (98-107); Glucose 88 mg/dL (74-99); Potassium 3.9 mmol/L (3.5-5.1); Sodium 137 mmol/L (137-145); Total Bilirubin 0.5 mg/dL (0.2-1.3); Total Protein 6.5 g/dL (6.3-8.2)
[2018-10-01 15:46] LABS: Creatine Kinase 61 U/L (30-135); INR 0.9 (<1.2); Partial Thromboplastin Time 22.7 sec (22.0-30.0); Prothrombin Time 9.7 sec (9.0-12.0)
[2018-10-01 15:59] LABS: Creatine Kinase MB 0.7 ng/mL (0.0-2.4); Troponin I <0.012 ng/mL (0.000-0.034)
--- NOTE | 2018-10-01 16:07 | XR ---
EXAMINATION TYPE: XR chest 2V DATE OF EXAM: 10/01/2018 COMPARISON: 10/19/2016 INDICATION: Syncope TECHNIQUE: Frontal and lateral views of the chest are obtained. FINDINGS: The heart size is normal. The pulmonary vasculature is normal. The lungs are clear. IMPRESSION: 1. No acute pulmonary process.
[2018-10-01 18:48] LABS: Appearance,Urine Clear (Clear); Bilirubin,Urine Negative (Negative); Blood,Urine Negative (Negative); Color,Urine Light Yellow; Glucose,Urine (UA) Negative (Negative); Ketones,Urine Negative (Negative); Leukocyte Esterase,Urine Negative (Negative); Nitrite,Urine Negative (Negative); PH, Urine 6.5 (5.0-8.0); Protein,Urine Negative (Negative); Specific Gravity,Urine 1.006 (1.001-1.035); Urobilinogen,Urine <2.0 mg/dL (<2.0)
[2018-10-01 19:03] VITALS: BP 126/84; PULSE 78
== END 2018-10-01 19:18 | disposition home or self-care (01) ==
LOC: EC 13:49
DX: R55 Syncope and collapse (principal); R00.1 Bradycardia, unspecified; R19.7 Diarrhea, unspecified; E78.5 Hyperlipidemia, unspecified; I10 Essential (primary) hypertension; I25.119 Atherosclerotic heart disease of native coronary artery with unspecified angina pectoris; I25.2 Old myocardial infarction; G40.909 Epilepsy, unspecified, not intractable, without status epilepticus; E03.9 Hypothyroidism, unspecified; Z88.5 Allergy status to narcotic agent; Z88.6 Allergy status to analgesic agent; Z88.8 Allergy status to other drugs, medicaments and biological substances; Z91.02 Food additives allergy status; Z79.890 Hormone replacement therapy; Z79.899 Other long term (current) drug therapy; Z86.73 Personal history of transient ischemic attack (TIA), and cerebral infarction without residual deficits; Z95.818 Presence of other cardiac implants and grafts; Z90.49 Acquired absence of other specified parts of digestive tract; Z53.20 Procedure and treatment not carried out because of patient's decision for unspecified reasons
CPT/HCPCS: 99285; 96365; 96361; 36415; 93005; 80053; 82550; 82553; 83735; 84484; 85025; 85610; 85730; 81003; 71046; J1953

== ENCOUNTER 2019-04-03 14:52 | Emergency (ER) | payer MEDICARE ==
[2019-04-03] MEDS ORDERED: SODIUM CHLORIDE 0.9% 500 ML 500 ML IV STA (14:56)
[2019-04-03 14:57] VITALS: RESP 18
--- NOTE | 2019-04-03 14:59 | ED ---
General Adult HPI - General Chief complaint: Syncope Stated complaint: Lightheaded Time Seen by Provider: 04/03/19 14:52 Source: patient, EMS, RN notes reviewed Mode of arrival: EMS Limitations: no limitations - History of Present Illness Initial comments: This is a 68-year-old female presents emergency department stating that she took a warm shower and when she got a shot wrapped towel around her she started feeling dizzy so she sat down the couch and decided to call EMS. Patient states currently she has no symptoms. Patient states she did not pass out and did not feel like she was given a passout. Patient states she has a history of seizures but she did not have a seizure. Patient denies headache patient denies any numbness weakness. Patient denies any chest pain difficulty breathing shortness of breath per patient denies any palpation. Patient denies any recent fever chills or cough per patient denies abdominal pain patient's nausea vomiting diarrhea. Patient denies any leg pain or calf swelling. Patient denies any trauma or injury recently. - Related Data Home Medications Medication Instructions Recorded Confirmed Lisinopril-Hctz 20-12.5 mg 1 tab PO DAILY 05/22/15 04/03/19 [Zestoretic 20-12.5] levETIRAcetam [Keppra] 500 mg PO Q12HR 05/22/15 04/03/19 Levothyroxine Sodium [Synthroid] 88 mcg PO DAILY 12/17/15 04/03/19 Atorvastatin [Lipitor] 20 mg PO HS 07/15/17 04/03/19 Pantoprazole [Protonix] 40 mg PO DAILY 04/03/19 04/03/19 Allergies Allergy/AdvReac Type Severity Reaction Status Date / Time codeine Allergy Unknown Verified 04/03/19 14:58 ibuprofen AdvReac ulcer Verified 04/03/19 14:58 monosodium glutamate [MSG] AdvReac Nausea & Verified 04/03/19 14:58 Vomiting & Diarrhea sodium AdvReac Nausea & Verified 04/03/19 14:58 Vomiting & Diarrhea Review of Systems ROS Statement: Those systems with pertinent positive or pertinent negative responses have been documented in the HPI. ROS Other: All systems not noted in ROS Statement are negative. Past Medical History Past Medical History: Chest Pain / Angina, CVA/TIA, Hyperlipidemia, Hypertension, Myocardial Infarction ([place]), Osteoarthritis (OA), Seizure Disorder, Syncope, Thyroid Disorder Additional Past Medical History / Comment(s): Seizures-last one in fall of 2014, syncopal episode-once due to gastric ulcer bleed .given transfusionTIA(no residual problems), DJD, generalized arthritis, hypothyroid, [place] in 2003. Last Myocardial Infarction Date:: 2003 History of Any Multi-Drug Resistant Organisms: None Reported Past Surgical History: Adenoidectomy, Appendectomy, Section, Heart Catheterization, Hysterectomy, Orthopedic Surgery, Tonsillectomy Additional Past Surgical History / Comment(s): 09/06/15 EGD with bx(neg) and colonoscopy, C-Sections x3, hammer toe sx ananya feet, gland removed from L side of neck, 2003 cardiac cath Additional Past Anesthesia/Blood Transfusion Reaction / Comment(s): difficulty waking after aa. Pt states she has received blood before without reaction. Past Psychological History: No Psychological Hx Reported Smoking Status: Never smoker Past Alcohol Use History: None Reported Past Drug Use History: None Reported - Past Family History Mother Family Medical History: Dementia Additional Family Medical History / Comment(s): Had 13 children. She of dementia at the age of 81 yrs. Father Family Medical History: Myocardial Infarction ([place]) Additional Family Medical History / Comment(s): from head injury General Exam - General Exam Comments Initial Comments: GENERAL: Patient is well-developed and well-nourished. Patient is nontoxic and well- hydrated and is in no acute distress. ENT: Neck is soft and supple. No significant lymphadenopathy is noted. Oropharynx is clear. Moist mucous membranes. Neck has full range of motion without eliciting any pain. EYES: The sclera were anicteric and conjunctiva were pink and moist. Extraocular movements were intact and pupils were equal round and reactive to light. Eyelids were unremarkable. PULMONARY: Unlabored respirations. Good breath sounds bilaterally. No audible rales rhonchi or wheezing was noted. CARDIOVASCULAR: There is a regular rate and rhythm without any murmurs gallops or rubs. ABDOMEN: Soft and nontender with normal bowel sounds. No palpable organomegaly was noted. There is no palpable pulsatile mass. SKIN: Skin is clear with no lesions or rashes and otherwise unremarkable. NEUROLOGIC: Patient is alert and oriented x3. Cranial nerves II through XII are grossly intact. Motor and sensory are also intact. Normal speech, volume and content. Symmetrical smile. MUSCULOSKELETAL: Normal extremities with adequate strength and full range of motion. No lower extremity swelling or edema. No calf tenderness. LYMPHATICS: No significant lymphadenopathy is noted PSYCHIATRIC: Normal psychiatric evaluation. Limitations: no limitations Course Vital Signs 04/03/19 04/03/19 14:53 15:30 Temperature 97.5 F L Pulse Rate 58 L Pulse Rate [ 56 L Sitting Neuropsychiatrist] Pulse Rate [ 71 Standing Neuropsychiatrist ] Pulse Rate [ 53 L Supine Neuropsychiatrist] Respiratory 18 Rate Blood Pressure 120/74 Blood Pressure 111/64 [Right Arm Sitting] Blood Pressure 107/75 [Right Arm Standing] Blood Pressure 104/53 [Right Arm Supine] O2 Sat by Pulse 96 Oximetry Medical Decision Making - Medical Decision Making EKG shows sinus rhythm with occasional PVC at MN interval is 178 QRSs 84 Q-T intervals 416 QTC is 432. Patient's EKG shows no ST segment elevation or depression. Patient was asymptomatic throughout her stay in emergency department. I went back and reevaluate her she stated she was asymptomatic. Patient was able to ambulate around the emergency department without problem. - Lab Data Result diagrams: 04/03/19 15:20 04/03/19 15:20 Lab Results 04/03/19 04/03/19 04/03/19 Range/Units 15:20 15:20 15:20 WBC 10.8 H (3.8-10.6) k/uL RBC 4.73 (3.80-5.40) m/uL Hgb 14.4 (11.4-16.0) gm/dL Hct 42.9 (34.0-46.0) % MCV 90.8 (80.0-100.0) fL MCH 30.4 (25.0-35.0) pg MCHC 33.5 (31.0-37.0) g/dL RDW 15.6 H (11.5-15.5) % Plt Count 281 (150-450) k/uL Neutrophils % 82 % Lymphocytes % 10 % Monocytes % 4 % Eosinophils % 2 % Basophils % 1 % Neutrophils # 8.8 H (1.3-7.7) k/uL Lymphocytes # 1.1 (1.0-4.8) k/uL Monocytes # 0.4 (0-1.0) k/uL Eosinophils # 0.3 (0-0.7) k/uL Basophils # 0.1 (0-0.2) k/uL Sodium 136 L (137-145) mmol/L Potassium 3.8 (3.5-5.1) mmol/L Chloride 101 (98-107) mmol/L Carbon Dioxide 26 (22-30) mmol/L Anion Gap 9 mmol/L BUN 15 (7-17) mg/dL Creatinine 0.78 (0.52-1.04) mg/dL Est GFR (CKD-EPI)AfAm >90 (>60 ml/min/1.73 sqM) Est GFR (CKD-EPI)NonAf 78 (>60 ml/min/1.73 sqM) Glucose 97 (74-99) mg/dL Plasma Lactic Acid Gavino 1.1 (0.7-2.0) mmol/L Calcium 9.7 (8.4-10.2) mg/dL Magnesium 2.2 (1.6-2.3) mg/dL Total Bilirubin 0.6 (0.2-1.3) mg/dL AST 24 (14-36) U/L ALT 31 (9-52) U/L Alkaline Phosphatase 75 (38-126) U/L Troponin I (0.000-0.034) ng/mL Total Protein 6.9 (6.3-8.2) g/dL Albumin 4.2 (3.5-5.0) g/dL Urine Color Urine Appearance (Clear) Urine pH (5.0-8.0) Ur Specific [place] (1.001-1.035) Urine Protein (Negative) Urine Glucose (UA) (Negative) Urine Ketones (Negative) Urine Blood (Negative) Urine Nitrite (Negative) Urine Bilirubin (Negative) Urine Urobilinogen (<2.0) mg/dL Ur Leukocyte Esterase (Negative) Urine RBC (0-5) /hpf Urine WBC (0-5) /hpf Ur Squamous Epith Cells (0-4) /hpf Amorphous Sediment (None) /hpf Urine Bacteria (None) /hpf Hyaline Casts (0-2) /lpf Urine Mucus (None) /hpf 04/03/19 04/03/19 Range/Units 15:20 16:08 WBC (3.8-10.6) k/uL RBC (3.80-5.40) m/uL Hgb (11.4-16.0) gm/dL Hct (34.0-46.0) % MCV (80.0-100.0) fL MCH (25.0-35.0) pg MCHC (31.0-37.0) g/dL RDW (11.5-15.5) % Plt Count (150-450) k/uL Neutrophils % % Lymphocytes % % Monocytes % % Eosinophils % % Basophils % % Neutrophils # (1.3-7.7) k/uL Lymphocytes # (1.0-4.8) k/uL Monocytes # (0-1.0) k/uL Eosinophils # (0-0.7) k/uL Basophils # (0-0.2) k/uL Sodium (137-145) mmol/L Potassium (3.5-5.1) mmol/L Chloride (98-107) mmol/L Carbon Dioxide (22-30) mmol/L Anion Gap mmol/L BUN (7-17) mg/dL Creatinine (0.52-1.04) mg/dL Est GFR (CKD-EPI)AfAm (>60 ml/min/1.73 sqM) Est GFR (CKD-EPI)NonAf (>60 ml/min/1.73 sqM) Glucose (74-99) mg/dL Plasma Lactic Acid Gavino (0.7-2.0) mmol/L Calcium (8.4-10.2) mg/dL Magnesium (1.6-2.3) mg/dL Total Bilirubin (0.2-1.3) mg/dL AST (14-36) U/L ALT (9-52) U/L Alkaline Phosphatase (38-126) U/L Troponin I <0.012 (0.000-0.034) ng/mL Total Protein (6.3-8.2) g/dL Albumin (3.5-5.0) g/dL Urine Color Yellow Urine Appearance Cloudy H (Clear) Urine pH 6.5 (5.0-8.0) Ur Specific [place] 1.014 (1.001-1.035) Urine Protein Trace H (Negative) Urine Glucose (UA) Negative (Negative) Urine Ketones Negative (Negative) Urine Blood Negative (Negative) Urine Nitrite Negative (Negative) Urine Bilirubin Negative (Negative) Urine Urobilinogen <2.0 (<2.0) mg/dL Ur Leukocyte Esterase Negative (Negative) Urine RBC 1 (0-5) /hpf Urine WBC 3 (0-5) /hpf Ur Squamous Epith Cells 2 (0-4) /hpf Amorphous Sediment Occasional H (None) /hpf Urine Bacteria Rare H (None) /hpf Hyaline Casts 28 H (0-2) /lpf Urine Mucus Occasional H (None) /hpf Disposition Clinical Impression: Dizziness Disposition: HOME SELF-CARE Instructions (If sedation given, give patient instructions): Dizziness (ED) Is patient prescribed a controlled substance at d/c from ED?: No Referrals: Sherwin Hernandez MD [Primary Care Provider] - 1-2 days Time of Disposition: 16:20
[2019-04-03 15:34] LABS: Basophils # (A) 0.1 k/uL (0-0.2); Basophils % (A) 1 %; Eosinophils # (A) 0.3 k/uL (0-0.7); Eosinophils % (A) 2 %; HCT 42.9 % (34.0-46.0); HGB 14.4 gm/dL (11.4-16.0); Lymphocytes # (A) 1.1 k/uL (1.0-4.8); Lymphocytes % (A) 10 %; MCH 30.4 pg (25.0-35.0); MCHC 33.5 g/dL (31.0-37.0); MCV 90.8 fL (80.0-100.0); Mean Platelet Volume 7.5; Monocytes # (A) 0.4 k/uL (0-1.0); Monocytes % (A) 4 %; Neutrophils # (A) 8.8 k/uL (1.3-7.7); Neutrophils % (A) 82 %; Platelet Count 281 k/uL (150-450); RBC 4.73 m/uL (3.80-5.40); RDW 15.6 % (11.5-15.5); WBC 10.8 k/uL (3.8-10.6)
[2019-04-03 15:45] LABS: ALT 31 U/L (9-52); AST 24 U/L (14-36); African American GFR (CKD) >90 (>60 ml/min/1.73 sqM); Albumin 4.2 g/dL (3.5-5.0); Alkaline Phosphatase 75 U/L (38-126); Anion Gap 9 mmol/L; Blood Urea Nitrogen 15 mg/dL (7-17); Calcium 9.7 mg/dL (8.4-10.2); Carbon Dioxide 26 mmol/L (22-30); Chloride 101 mmol/L (98-107); Glucose 97 mg/dL (74-99); Magnesium 2.2 mg/dL (1.6-2.3); Potassium 3.8 mmol/L (3.5-5.1); Sodium 136 mmol/L (137-145); Total Bilirubin 0.6 mg/dL (0.2-1.3); Total Protein 6.9 g/dL (6.3-8.2)
[2019-04-03 16:27] LABS: Amorphous Sediment,Urine Occasional /hpf; Appearance,Urine Cloudy (Clear); Bacteria,Urine Rare /hpf; Bilirubin,Urine Negative (Negative); Blood,Urine Negative (Negative); Color,Urine Yellow; Glucose,Urine (UA) Negative (Negative); Hyaline Casts,Urine 28 /lpf (0-2); Ketones,Urine Negative (Negative); Leukocyte Esterase,Urine Negative (Negative); Mucus,Urine Occasional /hpf; Nitrite,Urine Negative (Negative); PH, Urine 6.5 (5.0-8.0); Protein,Urine Trace (Negative); RBC,Urine 1 /hpf (0-5); Specific Gravity,Urine 1.014 (1.001-1.035); Squamous Epithelial Cell,Urine 2 /hpf (0-4); Urobilinogen,Urine <2.0 mg/dL (<2.0); WBC,Urine 3 /hpf (0-5)
[2019-04-03 16:45] VITALS: BP 119/71; PULSE 60; TEMP 97.4
== END 2019-04-03 17:07 | disposition home or self-care (01) ==
LOC: EC 14:52
DX: R42 Dizziness and giddiness (principal); I10 Essential (primary) hypertension; G40.909 Epilepsy, unspecified, not intractable, without status epilepticus; E03.9 Hypothyroidism, unspecified; E78.5 Hyperlipidemia, unspecified; I25.2 Old myocardial infarction; I20.9 Angina pectoris, unspecified; Z79.890 Hormone replacement therapy; Z79.899 Other long term (current) drug therapy; Z87.19 Personal history of other diseases of the digestive system; Z86.73 Personal history of transient ischemic attack (TIA), and cerebral infarction without residual deficits; Z95.5 Presence of coronary angioplasty implant and graft; Z88.5 Allergy status to narcotic agent; Z88.6 Allergy status to analgesic agent
CPT/HCPCS: 36415; 80053; 81001; 83605; 83735; 84484; 85025; 93005; 99284

== ENCOUNTER → 2019-07-20 | Outpatient (CLI) | payer MEDICARE ==
--- NOTE | 2019-07-22 12:29 | MM ---
Reason for exam: screening (asymptomatic). Last mammogram was performed 1 year and 9 months ago. History: Patient is postmenopausal. Family history of premenopausal breast cancer in sister at age 40. Benign excisional biopsy of the left breast, 2017. Took estrogen for 2 years 6 months. Physical Findings: A clinical breast exam by your physician is recommended on an annual basis and results should be correlated with mammographic findings. MG 3D Screening Mammo W/Cad Bilateral CC and MLO view(s) were taken. Prior study comparison: October 21, 2017, bilateral MG 3d screening mammo w/cad. September 22, 2016, bilateral MG 3d screening mammo w/cad. The breast tissue is heterogeneously dense. This may lower the sensitivity of mammography. No significant changes when compared with prior studies. ASSESSMENT: Benign, BI-RAD 2 RECOMMENDATION: Routine screening mammogram of both breasts in 1 year.
== END ==
LOC: RADMAMWWP 13:06
PROVIDERS: ATTEND Family Medicine
DX: Z12.31 Encounter for screening mammogram for malignant neoplasm of breast (principal)
CPT/HCPCS: 77063; 77067

== ENCOUNTER 2020-03-11 12:47 | Observation (INO) | payer MEDICARE ==
[2020-03-11] MEDS ORDERED: SODIUM CHLORIDE 0.9% 1,000 ML IV STA (12:50)
[2020-03-11 12:53] LABS: Glucose,Whole Blood 106 mg/dL (75-99)
[2020-03-11 13:05] LABS: Basophils # (A) 0.1 k/uL (0-0.2); Basophils % (A) 1 %; Eosinophils # (A) 0.3 k/uL (0-0.7); Eosinophils % (A) 5 %; HCT 44.6 % (34.0-46.0); HGB 14.9 gm/dL (11.4-16.0); Lymphocytes # (A) 1.7 k/uL (1.0-4.8); Lymphocytes % (A) 24 %; MCH 30.7 pg (25.0-35.0); MCHC 33.5 g/dL (31.0-37.0); MCV 91.7 fL (80.0-100.0); Mean Platelet Volume 7.8; Monocytes # (A) 0.3 k/uL (0-1.0); Monocytes % (A) 4 %; Neutrophils # (A) 4.4 k/uL (1.3-7.7); Neutrophils % (A) 63 %; Platelet Count 320 k/uL (150-450); RBC 4.86 m/uL (3.80-5.40); RDW 13.2 % (11.5-15.5)
--- NOTE | 2020-03-11 13:15 | ED ---
General Adult HPI - General Chief complaint: Recheck/Abnormal Lab/Rx Stated complaint: Altered Source: patient, EMS, RN notes reviewed, old records reviewed Mode of arrival: EMS Limitations: no limitations - History of Present Illness Initial comments: 69-year-old female history of seizure disorder presents for evaluation of syncope. Patient had had diarrhea throughout the morning. This was fairly significant according to EMS. No rectal bleeding. Upon arrival EMS found her minimally responsive, pale, diaphoretic with passive the 40s and low blood pressure. She was transported as priority 1 emergency department. Upon arrival she is able answer questions. Maintaining her own airway. She is denying pain complaints. States she had an episode similar to this approxi mately one year ago which was associated with diarrheal illness at that time. She denies any chest pain. Denies dyspnea. Denies headache. Denies fever. - Related Data Home Medications Medication Instructions Recorded Confirmed Lisinopril-Hctz 20-12.5 mg 1 tab PO DAILY 05/22/15 04/03/19 [Zestoretic 20-12.5] levETIRAcetam [Keppra] 500 mg PO Q12HR 05/22/15 04/03/19 Levothyroxine Sodium [Synthroid] 88 mcg PO DAILY 12/17/15 04/03/19 Atorvastatin [Lipitor] 20 mg PO HS 07/15/17 04/03/19 Pantoprazole [Protonix] 40 mg PO DAILY 04/03/19 04/03/19 Allergies Allergy/AdvReac Type Severity Reaction Status Date / Time codeine Allergy Unknown Verified 03/11/20 14:41 ibuprofen AdvReac ulcer Verified 03/11/20 14:41 monosodium glutamate [MSG] AdvReac Nausea & Verified 03/11/20 14:41 Vomiting & Diarrhea sodium AdvReac Nausea & Verified 03/11/20 14:41 Vomiting & Diarrhea Review of Systems ROS Statement: Those systems with pertinent positive or pertinent negative responses have been documented in the HPI. ROS Other: All systems not noted in ROS Statement are negative. Past Medical History Past Medical History: Chest Pain / Angina, CVA/TIA, Hyperlipidemia, Hypertension, Myocardial Infarction ([place]), Osteoarthritis ([place]), Seizure Disorder, Syncope, Thyroid Disorder Additional Past Medical History / Comment(s): Seizures-last one in fall of 2014, syncopal episode-once due to gastric ulcer bleed .given transfusionTIA(no residual problems), DJD, generalized arthritis, hypothyroid, [place] in 2003. Last Myocardial Infarction Date:: 2003 History of Any Multi-Drug Resistant Organisms: None Reported Past Surgical History: Adenoidectomy, Appendectomy, Section, Heart Catheterization, Hysterectomy, Orthopedic Surgery, Tonsillectomy Additional Past Surgical History / Comment(s): 09/06/15 EGD with bx(neg) and colonoscopy, C-Sections x3, hammer toe sx ananya feet, gland removed from L side of neck, 2004 cardiac cath Additional Past Anesthesia/Blood Transfusion Reaction / Comment(s): difficulty waking after aa. Pt states she has received blood before without reaction. Past Psychological History: No Psychological Hx Reported Smoking Status: Unknown if ever smoked Past Alcohol Use History: None Reported Past Drug Use History: None Reported - Past Family History Mother Family Medical History: Dementia Additional Family Medical History / Comment(s): Had 13 children. She of dementia at the age of 81 yrs. Father Family Medical History: Myocardial Infarction ([place]) Additional Family Medical History / Comment(s): from head injury General Exam Limitations: no limitations General appearance: in no apparent distress, lethargic Head exam: Present: atraumatic, normocephalic Eye exam: Present: normal appearance, PERRL ENT exam: Present: mucous membranes dry Neck exam: Present: normal inspection. Absent: tenderness, meningismus Respiratory exam: Present: normal lung sounds bilaterally. Absent: respiratory distress, wheezes Cardiovascular Exam: Present: normal rhythm, bradycardia GI/Abdominal exam: Present: soft. Absent: distended, tenderness, guarding Extremities exam: Present: normal inspection, normal capillary refill. Absent: pedal edema Neurological exam: Present: alert, oriented X3, CN II-XII intact. Absent: motor sensory deficit Skin exam: Present: diaphoretic, pallor Course Vital Signs 03/11/20 03/11/20 03/11/20 12:48 12:59 13:00 Temperature 98.0 F Pulse Rate 44 L 46 L 46 L Respiratory 16 18 18 Rate Blood Pressure 103/55 116/56 116/56 O2 Sat by Pulse 100 100 100 Oximetry 03/11/20 03/11/20 03/11/20 13:02 13:20 13:40 Temperature Pulse Rate 47 L 48 L 45 L Respiratory 16 17 16 Rate Blood Pressure 109/56 119/63 123/61 O2 Sat by Pulse 98 97 98 Oximetry - Reevaluation(s) Reevaluation #1: 03/11/20 14:52 Patient observed in the emergency department, she has significant improvement in her level of alertness, her heart rate improved to the mid 50s. She has a stable blood pressure. Her color is improved. EKG Findings - EKG Comments: EKG Findings:: EKG sinus bradycardia, rate of 47, IN interval 180, QRS duration 78, QTC 392, no ST segment elevation Medical Decision Making - Medical Decision Making 69-year-old female with diarrhea, and likely vasovagal syncope with bradycardia and hypotension upon arrival. Workup in the emergency department reveals normal CBC, normal CMP, she does have a lactic acid of 3.1 which I suspect is to dehydration from diarrhea. She has a EKG showing sinus bradycardia. Her heart rate and blood pressure improved with IV hydration. She will be observed on telemetry. Case is discussed with Dr. Hercules who will admit. Tobacco will be obtained. She will be contacted given continuous IV hydration. - Lab Data Result diagrams: 03/11/20 12:52 03/11/20 12:52 Lab Results 03/11/20 03/11/20 03/11/20 Range/Units 12:49 12:52 12:52 WBC 7.0 (3.8-10.6) k/uL RBC 4.86 (3.80-5.40) m/uL Hgb 14.9 (11.4-16.0) gm/dL Hct 44.6 (34.0-46.0) % MCV 91.7 (80.0-100.0) fL MCH 30.7 (25.0-35.0) pg MCHC 33.5 (31.0-37.0) g/dL RDW 13.2 (11.5-15.5) % Plt Count 320 (150-450) k/uL Neutrophils % 63 % Lymphocytes % 24 % Monocytes % 4 % Eosinophils % 5 % Basophils % 1 % Neutrophils # 4.4 (1.3-7.7) k/uL Lymphocytes # 1.7 (1.0-4.8) k/uL Monocytes # 0.3 (0-1.0) k/uL Eosinophils # 0.3 (0-0.7) k/uL Basophils # 0.1 (0-0.2) k/uL PT 10.0 (9.0-12.0) sec INR 1.0 (<1.2) APTT 21.4 L (22.0-30.0) sec Sodium (137-145) mmol/L Potassium (3.5-5.1) mmol/L Chloride (98-107) mmol/L Carbon Dioxide (22-30) mmol/L Anion Gap mmol/L BUN (7-17) mg/dL Creatinine (0.52-1.04) mg/dL Est GFR (CKD-EPI)AfAm (>60 ml/min/1.73 sqM) Est GFR (CKD-EPI)NonAf (>60 ml/min/1.73 sqM) Glucose (74-99) mg/dL POC Glucose (mg/dL) 106 H (75-99) mg/dL POC Glu Turbine Mechanic ID Rios [place] Plasma Lactic Acid Gavino (0.7-2.0) mmol/L Calcium (8.4-10.2) mg/dL Magnesium (1.6-2.3) mg/dL Total Bilirubin (0.2-1.3) mg/dL AST (14-36) U/L ALT (4-34) U/L Alkaline Phosphatase (38-126) U/L Troponin I (0.000-0.034) ng/mL Total Protein (6.3-8.2) g/dL Albumin (3.5-5.0) g/dL 03/11/20 03/11/20 03/11/20 Range/Units 12:52 12:52 12:53 WBC (3.8-10.6) k/uL RBC (3.80-5.40) m/uL Hgb (11.4-16.0) gm/dL Hct (34.0-46.0) % MCV (80.0-100.0) fL MCH (25.0-35.0) pg MCHC (31.0-37.0) g/dL RDW (11.5-15.5) % Plt Count (150-450) k/uL Neutrophils % % Lymphocytes % % Monocytes % % Eosinophils % % Basophils % % Neutrophils # (1.3-7.7) k/uL Lymphocytes # (1.0-4.8) k/uL Monocytes # (0-1.0) k/uL Eosinophils # (0-0.7) k/uL Basophils # (0-0.2) k/uL PT (9.0-12.0) sec INR (<1.2) APTT (22.0-30.0) sec Sodium 133 L (137-145) mmol/L Potassium 3.5 (3.5-5.1) mmol/L Chloride 100 (98-107) mmol/L Carbon Dioxide 23 (22-30) mmol/L Anion Gap 10 mmol/L BUN 14 (7-17) mg/dL Creatinine 0.69 (0.52-1.04) mg/dL Est GFR (CKD-EPI)AfAm >90 (>60 ml/min/1.73 sqM) Est GFR (CKD-EPI)NonAf 89 (>60 ml/min/1.73 sqM) Glucose 107 H (74-99) mg/dL POC Glucose (mg/dL) (75-99) mg/dL POC Glu Turbine Mechanic ID Plasma Lactic Acid Gavino 3.1 H* (0.7-2.0) mmol/L Calcium 9.6 (8.4-10.2) mg/dL Magnesium 2.1 (1.6-2.3) mg/dL Total Bilirubin 0.6 (0.2-1.3) mg/dL AST 23 (14-36) U/L ALT 17 (4-34) U/L Alkaline Phosphatase 67 (38-126) U/L Troponin I <0.012 (0.000-0.034) ng/mL Total Protein 6.8 (6.3-8.2) g/dL Albumin 4.1 (3.5-5.0) g/dL Critical Care Time Critical Care Time: Yes Total Critical Care Time: 35 Disposition Clinical Impression: Syncope, Lactic acidosis, Gastroenteritis Disposition: ADMITTED IP TO THIS [facility] Condition: Stable Is patient prescribed a controlled substance at d/c from ED?: No Referrals: Sherwin Hernandez MD [Primary Care Provider] - 1-2 days Decision to Admit Reason: Admit from EC Decision Date: 03/11/20 Decision Time: 14:53
--- NOTE | 2020-03-11 13:18 | XR ---
EXAMINATION TYPE: XR chest 1V portable DATE OF EXAM: 03/11/2020 HISTORY: MIKEY. REFERENCE: Previous study dated 10/01/2018. FINDINGS: The heart is enlarged. Lungs are clear. Pleural spaces are clear. IMPRESSION: MILD CARDIOMEGALY.
[2020-03-11 13:24] LABS: ALT 17 U/L (4-34); AST 23 U/L (14-36); African American GFR (CKD) >90 (>60 ml/min/1.73 sqM); Albumin 4.1 g/dL (3.5-5.0); Alkaline Phosphatase 67 U/L (38-126); Anion Gap 10 mmol/L; Blood Urea Nitrogen 14 mg/dL (7-17); Calcium 9.6 mg/dL (8.4-10.2); Carbon Dioxide 23 mmol/L (22-30); Chloride 100 mmol/L (98-107); Glucose 107 mg/dL (74-99); Magnesium 2.1 mg/dL (1.6-2.3); Non-African American GFR(CKD) 89 (>60 ml/min/1.73 sqM); Potassium 3.5 mmol/L (3.5-5.1); Sodium 133 mmol/L (137-145); Total Bilirubin 0.6 mg/dL (0.2-1.3); Total Protein 6.8 g/dL (6.3-8.2)
[2020-03-11 13:32] LABS: Partial Thromboplastin Time 21.4 sec (22.0-30.0)
[2020-03-11] MEDS ORDERED: levETIRAcetam 500 MG TAB PO STA (15:05)
[2020-03-11] MEDS: SODIUM CHLORIDE 0.9% 1,000 ML IV SCH (15:39)
[2020-03-11] MEDS ORDERED: ACETAMINOPHEN TAB 325 MG TAB PO PRN (16:06)
[2020-03-11] MEDS ORDERED: NALOXONE 0.4 MG/ML 1 ML VIAL IV PRN (16:06)
[2020-03-11 18:41] LABS: Appearance,Urine Clear (Clear); Bilirubin,Urine Negative (Negative); Blood,Urine Negative (Negative); Color,Urine Light Yellow; Glucose,Urine (UA) Negative (Negative); Ketones,Urine Negative (Negative); Leukocyte Esterase,Urine Negative (Negative); Nitrite,Urine Negative (Negative); Protein,Urine Negative (Negative); Specific Gravity,Urine 1.006 (1.001-1.035); Urobilinogen,Urine <2.0 mg/dL (<2.0)
[2020-03-11] MEDS: levETIRAcetam 500 MG TAB PO SCH (20:15)
[2020-03-12] MEDS: SODIUM CHLORIDE 0.9% 1,000 ML IV SCH ×2 (06:27→09:27)
[2020-03-12] MEDS: LEVOTHYROXINE 88 MCG TAB PO SCH (06:28)
[2020-03-12] MEDS: PANTOPRAZOLE 40 MG TABLET PO SCH (06:28)
[2020-03-12] MEDS: levETIRAcetam 500 MG TAB PO SCH ×2 (09:27→21:32)
[2020-03-12] MEDS: MULTIVITAMINS, THERA 1 EACH TAB PO SCH (09:27)
--- NOTE | 2020-03-12 09:53 | ECHOF ---
Referral Reason:syncope MEASUREMENTS -------- HEIGHT: 162.6 cm WEIGHT: 79.8 kg BP: RVIDd: 3.1 cm (< 3.3) IVSd: 1.9 cm (0.6 - 1.1) LVIDd: 3.1 cm (3.9 - 5.3) LVPWd: 1.9 cm (0.6 - 1.1) IVSs: 2.5 cm LVIDs: 1.8 cm LVPWs: 2.2 cm Ao Diam: 2.8 cm (2.0 - 3.7) AV Cusp: 1.7 cm (1.5 - 2.6) LA Diam: 4.2 cm (2.7 - 3.8) MV EXCURSION: 13.883 mm (> 18.000) MV EF SLOPE: 63 mm/s (70 - 150) EPSS: 0.2 cm MV E Edgardo: 0.80 m/s MV DecT: 237 ms MV A Edgardo: 0.92 m/s MV E/A Ratio: 0.87 RAP: 5.00 mmHg RVSP: 20.27 mmHg FINDINGS -------- Sinus rhythm with extra systolic beats. This was a technically adequate study. The left ventricular size is normal. There is severe concentric left ventricular hypertrophy. Ove rall left ventricular systolic function is normal with, an EF between 55 - 60 %. The right ventricle is normal in size. The left atrial size is normal. The right atrial size is normal. Interatrial and interventricular septum intact. The aortic valve is trileaflet and appears structurally normal. The mitral valve is normal. The mitral valve leaflets are mildly thickened. There is trace mitral regurgitation. The tricuspid valve appears structurally normal. Mild tricuspid regurgitation present. Right vent ricular systolic pressure is normal at < 35 mmHg. There is no pulmonic regurgitation present. The aortic root size is normal. Normal inferior vena cava with normal inspiratory collapse consistent with estimated right atrial pre ssure of 5 mmHg. There is no pericardial effusion. CONCLUSIONS -------- 1. There is severe concentric left ventricular hypertrophy. 2. Overall left ventricular systolic function is normal with, an EF between 55 - 60 %. 3. There is trace mitral regurgitation. 4. Mild tricuspid regurgitation present. CHIEF EMBALMER: Kate Stevens [facility]
--- NOTE | 2020-03-12 10:57 | P.HPIM ---
History of Present Illness H&P Date: 03/11/20 Chief Complaint: syncope Patient is a 69-year-old female with a known history of hypertension, seizure disorder, hypothyroidism, history of [place], osteoarthritis and history of syncopal episode due to gastric ulcer bleed previously was brought to the hospital after having it syncopal episode at home. Patient states that she has been having diarrhea since morning. According to the patient, after having diarrhea patient felt very sweaty and clammy at around 11:30 AM. Patient was helped by her and came back to kitchen. She suddenly felt very weak and leaned onto the floor. Lost consciousness for about less than a minute. No witnesses noted. No bladder or bowel incontinence. Patient has been afebrile. No cough or sputum production. Denied any recent unusual food intake. Chest x-ray showed mild cardiomegaly. EKG showed sinus bradycardia with heart rate 47 Laboratory showed sodium 133, potassium 3.5, BUN 14 and creatinine 0.69 Lactic acid 3.1 on admission Liver enzymes are not elevated Troponin x1- Urinalysis negative for infection Review of Systems Constitutional: Patient denies any fever or chills . No generalized weakness or weight loss. Abdomen: Patient denied nausea vomiting . Patient does have diarrhea and no abdominal pain. Cardiovascular: Patient denies any chest pain or short of breath no palpitations. Respiratory: patient denied any cough is from production. No shortness of breath Neurologic: Patient denied any numbness or tingling headache. Musculoskeletal: Patient denies any complaints of joint swelling or deformity. Skin: Negative Psychiatric: Negative Endocrine: No heat or cold intolerance. No recent weight gain. Genitourinary: No dysuria or hematuria. All other 14 point ROS negative except the above Past Medical History Past Medical History: Chest Pain / Angina, CVA/TIA, Hyperlipidemia, Hypertension, Myocardial Infarction ([place]), Osteoarthritis (OA), Seizure Disorder, Syncope, Thyroid Disorder Additional Past Medical History / Comment(s): Seizures-last one in fall of 2014, syncopal episode-once due to gastric ulcer bleed .given transfusionTIA(no residual problems), DJD, generalized arthritis, hypothyroid, [place] in 2003. Last Myocardial Infarction Date:: 2003 History of Any Multi-Drug Resistant Organisms: None Reported Past Surgical History: Adenoidectomy, Appendectomy, Section, Heart Catheterization, Hysterectomy, Orthopedic Surgery, Tonsillectomy Additional Past Surgical History / Comment(s): 09/06/15 EGD with bx(neg) and colonoscopy, C-Sections x3, hammer toe sx ananya feet, gland removed from L side of neck, 2003 cardiac cath Additional Past Anesthesia/Blood Transfusion Reaction / Comment(s): difficulty waking after aa. Pt states she has received blood before without reaction. Past Psychological History: No Psychological Hx Reported Smoking Status: Unknown if ever smoked Past Alcohol Use History: None Reported Past Drug Use History: None Reported - Past Family History Mother Family Medical History: Dementia Additional Family Medical History / Comment(s): Had 13 children. She of dementia at the age of 81 yrs. Father Family Medical History: Myocardial Infarction ([place]) Additional Family Medical History / Comment(s): from head injury Medications and Allergies Home Medications Medication Instructions Recorded Confirmed Type Lisinopril-Hctz 20-12.5 mg 1 tab PO DAILY 05/22/15 03/11/20 History [Zestoretic 20-12.5] levETIRAcetam [Keppra] 500 mg PO Q12HR 05/22/15 03/11/20 History Levothyroxine Sodium [Synthroid] 88 mcg PO DAILY 12/17/15 03/11/20 History Pantoprazole [Protonix] 40 mg PO DAILY 04/03/19 03/11/20 History Multivitamins, Thera [Multivitamin 1 tab PO DAILY 03/11/20 03/11/20 History (formulary)] Allergies Allergy/AdvReac Type Severity Reaction Status Date / Time codeine Allergy Hallucinati Verified 03/11/20 19:18 ons ibuprofen AdvReac ulcer Verified 03/11/20 14:41 monosodium glutamate [MSG] AdvReac Nausea & Verified 03/11/20 14:41 Vomiting & Diarrhea sodium AdvReac Nausea & Verified 03/11/20 14:41 Vomiting & Diarrhea Physical Exam Vitals: Vital Signs Temp Pulse Resp BP Pulse Ox 03/11/20 15:42 97 03/11/20 15:00 51 L 16 124/74 98 03/11/20 14:40 56 L 19 132/74 97 03/11/20 14:20 45 L 18 132/75 97 03/11/20 14:00 45 L 18 127/67 98 03/11/20 13:40 45 L 16 123/61 98 03/11/20 13:20 48 L 17 119/63 97 03/11/20 13:02 47 L 16 109/56 98 03/11/20 13:00 46 L 18 116/56 100 03/11/20 12:59 46 L 18 116/56 100 03/11/20 12:48 98.0 F 44 L 16 103/55 100 Intake and Output 03/11/20 03/11/20 03/11/20 06:59 14:59 22:59 Other: Weight 86.183 kg PHYSICAL EXAMINATION: Patient is lying in the bed comfortably, no acute distress, awake alert and oriented.. HEENT: Normocephalic. Neck is supple. Pupils reactive. Nostrils clear. Oral cavity is moist. Ears reveal no drainage. Neck reveals no JVD, carotid bruits, or thyromegaly. CHEST EXAMINATION: Trachea is central. Symmetrical expansion. Lung singer clear to auscultation and percussion. CARDIAC: Normal S1, S2 with no gallops. No murmurs ABDOMEN: Soft. Bowel sounds normal. No organomegaly. No abdominal bruits. Extremities: reveal no edema. No clubbing or cyanosis Neurologically awake, alert, oriented x3 with well-coordinated movements. No focal deficits noted Skin: No rash or skin lesions. Psychiatric: Coperative. Nonsuicidal Musculoskeletal: No joint swelling or deformity. Normal range of motion. Results CBC & Chem 7: 03/11/20 12:52 03/11/20 12:52 Labs: Abnormal Lab Results - Last 24 Hours (Table) 03/11/20 03/11/20 03/11/20 Range/Units 12:49 12:52 12:52 APTT 21.4 L (22.0-30.0) sec Sodium 133 L (137-145) mmol/L Glucose 107 H (74-99) mg/dL POC Glucose (mg/dL) 106 H (75-99) mg/dL Plasma Lactic Acid Gavino (0.7-2.0) mmol/L 03/11/20 Range/Units 12:53 APTT (22.0-30.0) sec Sodium (137-145) mmol/L Glucose (74-99) mg/dL POC Glucose (mg/dL) (75-99) mg/dL Plasma Lactic Acid Gavino 3.1 H* (0.7-2.0) mmol/L Thrombosis Risk Factor Assmnt - DVT/VTE Prophylaxis DVT/VTE Prophylaxis: Pharmacologic Prophylaxis ordered Assessment and Plan Assessment: acute syncopal episode after having several episodes of diarrhea. Possible vasovagal Lactic acidosis on admission improved now History of seizure disorder History of [place] hypothyroidism History of CVA/TIA with no residual apneas Generalized osteoarthritis DVT prophylaxis Plan: Patient will continue on IV hydration. Patient states that her diarrhea is resolved now. Orthostatic vitals and continue with telemetry monitoring. Cardiology was consulted due to syncopal episode. Further recommendations based on clinical course. Time with Patient: Greater than 30
[2020-03-12 13:26] LABS: African American GFR (CKD) >90 (>60 ml/min/1.73 sqM); Anion Gap 7 mmol/L; Blood Urea Nitrogen 8 mg/dL (7-17); Calcium 9.1 mg/dL (8.4-10.2); Carbon Dioxide 24 mmol/L (22-30); Chloride 102 mmol/L (98-107); Glucose 106 mg/dL (74-99); Non-African American GFR(CKD) >90 (>60 ml/min/1.73 sqM); Potassium 3.7 mmol/L (3.5-5.1); Sodium 133 mmol/L (137-145)
[2020-03-12] MEDS: lisinopriL 20 MG TAB PO SCH (17:17)
--- NOTE | 2020-03-12 22:57 | CONS ---
CONSULTATION CHIEF COMPLAINT: Syncope. This is a 69-year-old lady with history of coronary artery disease, status post angioplasty, seizure disorder, hypothyroidism and hypertension who comes to hospital having had diarrhea yesterday and transient loss of consciousness that lasted for about a minute. Since being admitted to hospital, she has done well, has not had any episodes of cardiac arrhythmia, did not have chest pain, did not have shortness of breath, did not have any further syncope. I have been consulted for her syncope today. At the time of my evaluation, she appears comfortable at rest and is free of symptoms, has orthostatic changes. Oxygen saturation is normal at 96% on room air. She has not have further syncopal event. Her syncope is probably vasovagal in origin. She has a history of the same. PAST MEDICAL HISTORY: Her past medical history is significant for coronary artery disease, status post angioplasty, hypertension, hypothyroidism and seizure disorder. The patient is currently on Keppra, Protonix, multivitamin, Zestoretic, levothyroxine. ALLERGIES: CODEINE, IBUPROFEN, SODIUM. FAMILY HISTORY: Negative for premature coronary artery disease. SOCIAL HISTORY: Negative for smoking, EtOH abuse or drug abuse. REVIEW OF SYSTEMS: HEENT is unremarkable. CARDIAC: As described above. RESPIRATORY: As described above. GI: Negative. GENITOURINARY: Negative. ALLERGY: Negative. IMMUNOLOGY: Negative. SKIN: Negative. MUSCULOSKELETAL: Negative. ENDOCRINE: Negative. DERMATOLOGY: Negative. CONSTITUTIONAL: Negative. ONCOLOGICAL: Negative. PHYSICAL EXAMINATION: Comfortable at rest. Vital signs are stable. There is no jugular venous distention. Carotid upstroke is normal. There is no bruit. Chest exam reveals good air entry bilaterally. Heart exam reveals first and second heart sounds. No gallop. No murmur. No rub. Abdomen is soft, nontender. Examination of extremities did not reveal any edema. Peripheral pulses are felt. LABS: Labs show a potassium of 3.7, creatinine 0.5. Hemoglobin is 14.9. EKG shows sinus bradycardia with a heart rate of 47 beats per minute. Echocardiogram shows normal LV systolic function. ASSESSMENT: 1. Syncope. 2. Coronary artery disease, status post angioplasty. 3. Orthostatic hypotension. PLAN: I am going to resume the lisinopril. Review the echo results. I will watch her on telemetry to rule out significant bradycardia. I believe the syncope is vasovagal related to the diarrhea. I anticipate discharge tomorrow morning. MMSYLVIAL / IJN: [id number] /
[2020-03-13] MEDS: PANTOPRAZOLE 40 MG TABLET PO SCH (06:41)
[2020-03-13] MEDS: LEVOTHYROXINE 88 MCG TAB PO SCH (06:41)
[2020-03-13] MEDS: SODIUM CHLORIDE 0.9% 1,000 ML IV SCH (06:42)
[2020-03-13] MEDS: MULTIVITAMINS, THERA 1 EACH TAB PO SCH (08:52)
[2020-03-13] MEDS: lisinopriL 20 MG TAB PO SCH (08:52)
[2020-03-13] MEDS: levETIRAcetam 500 MG TAB PO SCH (08:52)
[2020-03-13 09:34] VITALS: BP 128/86; RESP 19; TEMP 98.1
[2020-03-13 09:35] VITALS: PULSE 57
--- NOTE | 2020-03-13 10:42 | PN ---
PROGRESS NOTE Delmy is a 69-year-old lady that is admitted to the hospital having had an episode of syncope at home. She has history of coronary artery disease for which she underwent angioplasty, had an echocardiogram that showed normal LV function and had some orthostatic changes yesterday, but blood pressure appears normal today, well controlled. She is ambulating without any symptoms. On exam, vital signs are stable. Chest exam reveals good air entry bilaterally. Heart exam reveals first and second heart sounds. No gallop. No murmur. Abdomen is soft. Exam of extremities did not reveal any edema. Peripheral pulses are felt. LABS: Show that the potassium is 3.7, creatinine is 0.5, coronavirus is negative. ASSESSMENT: 1. Syncope secondary to orthostatic hypotension. 2. Coronary artery disease, status post angioplasty. PLAN: Patient is doing well. Did not have any documented symptomatic bradycardia. Did not have chest pain. Did not rule in for myocardial infarction. She is stable for discharge from cardiac standpoint, needs an outpatient stress test and her troponins are negative. She will follow up with Cardiology and have a stress test done. MMODL / IJN: [id number] /
--- NOTE | 2020-03-14 09:44 | P.DS ---
Providers Date of admission: 03/11/20 16:06 Expected date of discharge: 03/13/20 Attending physician: Adriana Ramírez Consults: 03/12/20 14:13 Consult Physician Routine Consulting Provider: Michael Villa Consult Reason/Comments: syncope Do you want consulting provider notified?: Yes Primary care physician: Sherwin Hernandez Hospital Course: Final diagnosis acute syncopal episode after having several episodes of diarrhea. Possible vasovagal Lactic acidosis on admission improved now History of seizure disorder History of [place] hypothyroidism History of CVA/TIA with no residual deficits Generalized osteoarthritis DVT prophylaxis Discharge disposition Patient is being discharged in a stable condition with guarded prognosis to home. Patient will follow-up with Dr. hernandez upon discharge. Patient also instructed to follow-up with cardiology Dr. Villa in the outpatient setting. Patient was continued on her lisinopril and the hydrochlorothiazide was discontinued. Total time taken is 35 minutes. History of present illness This is an 69-year-old female who was recently admitted with syncopal episode and was being closely monitored. She states she been having multiple episodes of diarrhea all morning and became weak prior to the episode and was witnessed by . Patient was seen and evaluated by cardiology and underwent an echo showing severe concentric left ventricular hypertrophy, left ventricular systolic function is normal with an EF between 55-60%, and a trace of mitral and mild tricuspid regurgitation present. Patient instructed to follow-up with c ardiology in the outpatient setting and an appointment was made. Patient's diarrhea has since subsided and has been walking the halls with no evidence of dizziness or lightheadedness and denies any syncopal episodes. Patient would like to go home today. Currently no reports of chest pain, shortness of breath, or palpitations. Patient is afebrile. No reports of nausea or vomiting and patient is tolerating diet. Guarded prognosis. On exam vital signs are stable. Temp is 98.1F, pulse is 65, respirations are 19, blood pressure is 128/86, oxygen saturation is 98% on room air. Cardio S1, S2 are muffled. Respiratory shows diminished breath sounds at the bases with no wheezing or rhonchi noted. Abdomen is soft and nontender. Nervous system shows no focal deficits. Please refer to medication reconciliation sheet for a list of medications. Patient Condition at Discharge: Stable Plan - Discharge Summary Discharge Rx Participant: No New Discharge Prescriptions: New lisinopriL [Zestril] 20 mg PO DAILY 30 Days #30 tab Continue levETIRAcetam [Keppra] 500 mg PO Q12HR Levothyroxine Sodium [Synthroid] 88 mcg PO DAILY Pantoprazole [Protonix] 40 mg PO DAILY Multivitamins, Thera [Multivitamin (formulary)] 1 tab PO DAILY Discontinued Lisinopril-Hctz 20-12.5 mg [Zestoretic 20-12.5] 1 tab PO DAILY Discharge Medication List levETIRAcetam [Keppra] 500 mg PO Q12HR 05/22/15 [History] Levothyroxine Sodium [Synthroid] 88 mcg PO DAILY 12/17/15 [History] Pantoprazole [Protonix] 40 mg PO DAILY 04/03/19 [History] Multivitamins, Thera [Multivitamin (formulary)] 1 tab PO DAILY 03/11/20 [History] lisinopriL [Zestril] 20 mg PO DAILY 30 Days #30 tab 03/13/20 [Rx] Follow up Appointment(s)/Referral(s): Sherwin Hernandez MD [Primary Care Provider] - 03/16/20 2:20 pm Michael Villa MD [STAFF PHYSICIAN] - 03/23/20 2:45 pm Patient Instructions/Handouts: Syncope (DC), Gastroenteritis (DC) Activity/Diet/Wound Care/Special Instructions: Activity Limited until follow-up Follow-up with primary care provider upon discharge Continue current diet Continue with just lisinopril Follow-up with cardiology in the outpatient setting Discharge Disposition: HOME SELF-CARE
== END 2020-03-13 12:30 | disposition home or self-care (01) ==
LOC: EC 12:47 → 3SCARD 16:06 → INTOOBSV 16:06 → 3SCARD 18:37 → UNDODISIN 03-13 12:30
PROVIDERS: ADMIT Internal Medicine; ATTEND Internal Medicine
DX: I95.1 Orthostatic hypotension (principal); E87.2 Acidosis; R19.7 Diarrhea, unspecified; R00.1 Bradycardia, unspecified; G40.909 Epilepsy, unspecified, not intractable, without status epilepticus; I25.2 Old myocardial infarction; E03.9 Hypothyroidism, unspecified; M15.9 Polyosteoarthritis, unspecified; E78.5 Hyperlipidemia, unspecified; I11.9 Hypertensive heart disease without heart failure; I25.10 Atherosclerotic heart disease of native coronary artery without angina pectoris; Z20.828 Contact with and (suspected) exposure to other viral communicable diseases; Z86.73 Personal history of transient ischemic attack (TIA), and cerebral infarction without residual deficits; Z79.899 Other long term (current) drug therapy; Z79.890 Hormone replacement therapy; Z88.5 Allergy status to narcotic agent; Z88.6 Allergy status to analgesic agent; Z91.02 Food additives allergy status; Z87.19 Personal history of other diseases of the digestive system; Z90.89 Acquired absence of other organs; Z90.49 Acquired absence of other specified parts of digestive tract; Z98.890 Other specified postprocedural states; Z90.710 Acquired absence of both cervix and uterus; Z87.39 Personal history of other diseases of the musculoskeletal system and connective tissue; Z91.89 Other specified personal risk factors, not elsewhere classified; Z87.11 Personal history of peptic ulcer disease; Z98.61 Coronary angioplasty status; Z82.49 Family history of ischemic heart disease and other diseases of the circulatory system; Z81.8 Family history of other mental and behavioral disorders
CPT/HCPCS: 96361 ×2; 96360; 99291; 36415; 93005; 93306; 80053; 80048; 83605; 83735 ×2; 84484; 85025; 85610; 85730; 81003; 87045; 83630; 87046; 71045; G0378 ×3; U0003; 87324

== ENCOUNTER 2020-07-17 15:41 | Emergency (ER) | payer MEDICARE ==
[2020-07-17 15:48] LABS: Glucose,Whole Blood 102 mg/dL (75-99)
[2020-07-17 15:53] VITALS: RESP 18
[2020-07-17] MEDS ORDERED: SODIUM CHLORIDE 0.9% 500 ML 500 ML IV STA (15:55)
--- NOTE | 2020-07-17 15:59 | ED ---
General Adult HPI - General Chief complaint: Altered Mental Status Stated complaint: Unresponsive Time Seen by Provider: 07/17/20 15:51 Source: patient, EMS, RN notes reviewed, old records reviewed Limitations: no limitations - History of Present Illness Initial comments: 70-year-old female presents for evaluation of syncope versus seizure. Patient had collapsed and become unresponsive according to EMS. She was found to be hypotensive and bradycardic. She has a known seizure disorder. She is alert and oriented at the time my evaluation but had been completely unresponsive. She states she feels like she may have had a seizure complaining of a mild headache. She denies any preceding chest pain or dyspnea. No cough. No URI symptoms. No nausea vomiting or diarrhea. No fever. No focal numbness or weakness. She has had similar episode in the past. - Related Data Home Medications Medication Instructions Recorded Confirmed levETIRAcetam [Keppra] 500 mg PO Q12H 05/22/15 07/17/20 Levothyroxine Sodium [Synthroid] 88 mcg PO DAILY 12/17/15 07/17/20 Pantoprazole [Protonix] 40 mg PO DAILY 04/03/19 07/17/20 Previous Rx's Medication Instructions Recorded lisinopriL [Zestril] 20 mg PO DAILY 30 Days #30 tab 03/13/20 Allergies Allergy/AdvReac Type Severity Reaction Status Date / Time codeine Allergy Hallucinati Verified 07/17/20 16:49 ons ibuprofen AdvReac ulcer Verified 07/17/20 16:49 monosodium glutamate [MSG] AdvReac Nausea & Verified 07/17/20 16:49 Vomiting & Diarrhea NSAIDS (Non-Steroidal AdvReac ulcer Verified 07/17/20 16:49 Anti-Inflamma sodium AdvReac Nausea & Verified 07/17/20 16:49 Vomiting & Diarrhea Review of Systems ROS Statement: Those systems with pertinent positive or pertinent negative responses have been documented in the HPI. ROS Other: All systems not noted in ROS Statement are negative. Past Medical History Past Medical History: Chest Pain / Angina, CVA/TIA, Hyperlipidemia, Hypertension, Myocardial Infarction ([place]), Osteoarthritis (OA), Seizure Disorder, Syncope, Thyroid Disorder Additional Past Medical History / Comment(s): Seizures-last one in fall of 2014, syncopal episode-once due to gastric ulcer bleed .given transfusionTIA(no resi dual problems), DJD, generalized arthritis, hypothyroid, [place] in 2003. Last Myocardial Infarction Date:: 2003 History of Any Multi-Drug Resistant Organisms: None Reported Past Surgical History: Adenoidectomy, Appendectomy, Section, Heart Catheterization, Hysterectomy, Orthopedic Surgery, Tonsillectomy Additional Past Surgical History / Comment(s): 09/06/15 EGD with bx(neg) and colonoscopy, C-Sections x3, hammer toe sx ananya feet, gland removed from L side of neck, 2003 cardiac cath Additional Past Anesthesia/Blood Transfusion Reaction / Comment(s): difficulty waking after aa. Pt states she has received blood before without reaction. Past Psychological History: No Psychological Hx Reported Smoking Status: Never smoker Past Alcohol Use History: None Reported Past Drug Use History: None Reported - Past Family History Mother Family Medical History: Dementia Additional Family Medical History / Comment(s): Had 13 children. She of dementia at the age of 81 yrs. Father Family Medical History: Myocardial Infarction ([place]) Additional Family Medical History / Comment(s): from head injury General Exam Limitations: altered mental status General appearance: alert, in no apparent distress Head exam: Present: atraumatic, normocephalic Eye exam: Present: normal appearance, PERRL ENT exam: Present: normal exam Neck exam: Present: normal inspection. Absent: tenderness, meningismus Respiratory exam: Present: normal lung sounds bilaterally. Absent: respiratory distress, wheezes Cardiovascular Exam: Present: regular rate, normal rhythm GI/Abdominal exam: Present: soft. Absent: distended, tenderness, guarding, rebound Extremities exam: Present: normal inspection, normal capillary refill. Absent: pedal edema Neurological exam: Present: alert, oriented X3, CN II-XII intact. Absent: motor sensory deficit Psychiatric exam: Present: normal affect, normal mood Skin exam: Present: diaphoretic, pallor, other (col) Course Vital Signs 07/17/20 07/17/20 15:44 16:41 Temperature 97 F L 97.8 F Pulse Rate 57 L 51 L Respiratory 18 18 Rate Blood Pressure 136/76 134/65 O2 Sat by Pulse 99 100 Oximetry EKG Findings - EKG Comments: EKG Findings:: EKG: Sinus bradycardia, rate of 55 with PVC, left atrial enlargement, MO interval 180, QRS duration 82, QTC 407, no ST segment elevation Medical Decision Making - Medical Decision Making 70-year-old female with syncope versus seizure, history is concerning for seizure in a patient with known seizure history currently on Keppra. She is awake and alert time my evaluation she had been unresponsive, possibly postictal. No focal findings. Head CT is negative for any acute intracranial pathology. Chest x-ray questioning CHF with no dyspnea, no cough. No chest pain. Patient has normal CBC, normal CMP, negative troponin. She's given a dose of in the emergency department. I did plan to admit this patient for telemetry, neurology consultation. Patient prefers to be discharged home. She will return with worsening or changing symptoms. - Lab Data Result diagrams: 07/17/20 16:12 07/17/20 16:12 Lab Results 07/17/20 07/17/20 07/17/20 Range/Units 15:47 16:12 16:12 WBC 9.1 (3.8-10.6) k/uL RBC 5.30 (3.80-5.40) m/uL Hgb 15.6 (11.4-16.0) gm/dL Hct 48.3 H (34.0-46.0) % MCV 91.0 (80.0-100.0) fL MCH 29.3 (25.0-35.0) pg MCHC 32.2 (31.0-37.0) g/dL RDW 13.3 (11.5-15.5) % Plt Count 297 (150-450) k/uL MPV 7.5 Neutrophils % 80 % Lymphocytes % 12 % Monocytes % 4 % Eosinophils % 2 % Basophils % 1 % Neutrophils # 7.3 (1.3-7.7) k/uL Lymphocytes # 1.1 (1.0-4.8) k/uL Monocytes # 0.3 (0-1.0) k/uL Eosinophils # 0.2 (0-0.7) k/uL Basophils # 0.1 (0-0.2) k/uL PT 10.4 (9.0-12.0) sec INR 1.0 (<1.2) APTT 23.0 (22.0-30.0) sec Sodium (137-145) mmol/L Potassium (3.5-5.1) mmol/L Chloride (98-107) mmol/L Carbon Dioxide (22-30) mmol/L Anion Gap mmol/L BUN (7-17) mg/dL Creatinine (0.52-1.04) mg/dL Est GFR (CKD-EPI)AfAm (>60 ml/min/1.73 sqM) Est GFR (CKD-EPI)NonAf (>60 ml/min/1.73 sqM) Glucose (74-99) mg/dL POC Glucose (mg/dL) 102 H (75-99) mg/dL POC Glu Transmission Specialist Karla Arnold Calcium (8.4-10.2) mg/dL Magnesium (1.6-2.3) mg/dL Total Bilirubin (0.2-1.3) mg/dL AST (14-36) U/L ALT (4-34) U/L Alkaline Phosphatase (38-126) U/L Troponin I (0.000-0.034) ng/mL Total Protein (6.3-8.2) g/dL Albumin (3.5-5.0) g/dL Urine Color Urine Appearance (Clear) Urine pH (5.0-8.0) Ur Specific [place] (1.001-1.035) Urine Protein (Negative) Urine Glucose (UA) (Negative) Urine Ketones (Negative) Urine Blood (Negative) Urine Nitrite (Negative) Urine Bilirubin (Negative) Urine Urobilinogen (<2.0) mg/dL Ur Leukocyte Esterase (Negative) Urine RBC (0-5) /hpf Urine WBC (0-5) /hpf Ur Squamous Epith Cells (0-4) /hpf Urine Bacteria (None) /hpf Hyaline Casts (0-2) /lpf Urine Mucus (None) /hpf 07/17/20 07/17/20 07/17/20 Range/Units 16:12 16:12 16:12 WBC (3.8-10.6) k/uL RBC (3.80-5.40) m/uL Hgb (11.4-16.0) gm/dL Hct (34.0-46.0) % MCV (80.0-100.0) fL MCH (25.0-35.0) pg MCHC (31.0-37.0) g/dL RDW (11.5-15.5) % Plt Count (150-450) k/uL MPV Neutrophils % % Lymphocytes % % Monocytes % % Eosinophils % % Basophils % % Neutrophils # (1.3-7.7) k/uL Lymphocytes # (1.0-4.8) k/uL Monocytes # (0-1.0) k/uL Eosinophils # (0-0.7) k/uL Basophils # (0-0.2) k/uL PT (9.0-12.0) sec INR (<1.2) APTT (22.0-30.0) sec Sodium 131 L (137-145) mmol/L Potassium 3.5 (3.5-5.1) mmol/L Chloride 102 (98-107) mmol/L Carbon Dioxide 24 (22-30) mmol/L Anion Gap 5 mmol/L BUN 17 (7-17) mg/dL Creatinine 0.72 (0.52-1.04) mg/dL Est GFR (CKD-EPI)AfAm >90 (>60 ml/min/1.73 sqM) Est GFR (CKD-EPI)NonAf 85 (>60 ml/min/1.73 sqM) Glucose 101 H (74-99) mg/dL POC Glucose (mg/dL) (75-99) mg/dL POC Glu Transmission Specialist ID Calcium 9.4 (8.4-10.2) mg/dL Magnesium 2.0 (1.6-2.3) mg/dL Total Bilirubin 0.8 (0.2-1.3) mg/dL AST 25 (14-36) U/L ALT 19 (4-34) U/L Alkaline Phosphatase 76 (38-126) U/L Troponin I <0.012 (0.000-0.034) ng/mL Total Protein 6.8 (6.3-8.2) g/dL Albumin 4.0 (3.5-5.0) g/dL Urine Color Yellow Urine Appearance Clear (Clear) Urine pH 7.0 (5.0-8.0) Ur Specific [place] 1.011 (1.001-1.035) Urine Protein Negative (Negative) Urine Glucose (UA) Negative (Negative) Urine Ketones Negative (Negative) Urine Blood Negative (Negative) Urine Nitrite Negative (Negative) Urine Bilirubin Negative (Negative) Urine Urobilinogen <2.0 (<2.0) mg/dL Ur Leukocyte Esterase Trace H (Negative) Urine RBC 1 (0-5) /hpf Urine WBC 2 (0-5) /hpf Ur Squamous Epith Cells 1 (0-4) /hpf Urine Bacteria Rare H (None) /hpf Hyaline Casts 3 H (0-2) /lpf Urine Mucus Rare H (None) /hpf Disposition Clinical Impression: Seizure, Syncope Disposition: HOME SELF-CARE Condition: Fair Instructions (If sedation given, give patient instructions): Recurrent Seizures in Adults (ED), Syncope (ED) Is patient prescribed a controlled substance at d/c from ED?: No Referrals: Sherwin Hernandez MD [Primary Care Provider] - 1-2 days Yakov Maurer DO [STAFF PHYSICIAN] - 1-2 days Time of Disposition: 17:06
--- NOTE | 2020-07-17 16:22 | XR ---
EXAMINATION TYPE: XR chest 2V DATE OF EXAM: 07/17/2020 COMPARISON: Chest x-ray March 11, 2020 HISTORY: Syncope and weakness. TECHNIQUE: Frontal and lateral views of the chest are obtained. FINDINGS: Low lung volumes and mild chronic parenchymal changes redemonstrated. There is no suspicio us new peripheral focal air space opacity, pleural effusion, or pneumothorax seen. The cardiac silho uette size remains enlarged with mild central vascular congestion thought present. Multilevel spurrin g in the spine. Overlying bra strap. IMPRESSION: Correlate for CHF exacerbation as there is cardiomegaly with new mild central vascular c ongestion suspected.
--- NOTE | 2020-07-17 16:24 | CT ---
EXAMINATION TYPE: CT brain wo con DATE OF EXAM: 07/17/2020 HISTORY: Seizure today. CT DLP: 1086.4 mGycm. Automated Exposure Control for Dose Reduction was Utilized. TECHNIQUE: CT scan of the head is performed without contrast. COMPARISON: CT brain October 19, 2016. FINDINGS: There is no acute intracranial hemorrhage or midline shift identified. There is diffuse v entricular and sulcal prominence consistent with diffuse age-related cerebral atrophy. There is low- attenuation in the periventricular white matter consistent with chronic small vessel ischemic change. The globes are intact and the visualized sinuses are clear. IMPRESSION: No acute intracranial hemorrhage or midline shift. There is mild to moderate diffuse ag e-related cerebral atrophy and chronic small vessel ischemic change redemonstrated. No significant c hange from prior.
[2020-07-17 16:34] LABS: Basophils # (A) 0.1 k/uL (0-0.2); Basophils % (A) 1 %; Eosinophils # (A) 0.2 k/uL (0-0.7); Eosinophils % (A) 2 %; HCT 48.3 % (34.0-46.0); HGB 15.6 gm/dL (11.4-16.0); Lymphocytes # (A) 1.1 k/uL (1.0-4.8); Lymphocytes % (A) 12 %; MCH 29.3 pg (25.0-35.0); MCHC 32.2 g/dL (31.0-37.0); Mean Platelet Volume 7.5; Monocytes # (A) 0.3 k/uL (0-1.0); Monocytes % (A) 4 %; Neutrophils # (A) 7.3 k/uL (1.3-7.7); Neutrophils % (A) 80 %; Platelet Count 297 k/uL (150-450); RDW 13.3 % (11.5-15.5); WBC 9.1 k/uL (3.8-10.6)
[2020-07-17 16:42] LABS: ALT 19 U/L (4-34); AST 25 U/L (14-36); African American GFR (CKD) >90 (>60 ml/min/1.73 sqM); Alkaline Phosphatase 76 U/L (38-126); Anion Gap 5 mmol/L; Blood Urea Nitrogen 17 mg/dL (7-17); Calcium 9.4 mg/dL (8.4-10.2); Carbon Dioxide 24 mmol/L (22-30); Chloride 102 mmol/L (98-107); Glucose 101 mg/dL (74-99); Non-African American GFR(CKD) 85 (>60 ml/min/1.73 sqM); Potassium 3.5 mmol/L (3.5-5.1); Sodium 131 mmol/L (137-145); Total Bilirubin 0.8 mg/dL (0.2-1.3); Total Protein 6.8 g/dL (6.3-8.2)
[2020-07-17 16:45] LABS: Prothrombin Time 10.4 sec (9.0-12.0)
[2020-07-17 16:56] LABS: Appearance,Urine Clear (Clear); Bacteria,Urine Rare /hpf; Bilirubin,Urine Negative (Negative); Blood,Urine Negative (Negative); Color,Urine Yellow; Glucose,Urine (UA) Negative (Negative); Hyaline Casts,Urine 3 /lpf (0-2); Ketones,Urine Negative (Negative); Leukocyte Esterase,Urine Trace (Negative); Mucus,Urine Rare /hpf; Nitrite,Urine Negative (Negative); Protein,Urine Negative (Negative); RBC,Urine 1 /hpf (0-5); Specific Gravity,Urine 1.011 (1.001-1.035); Squamous Epithelial Cell,Urine 1 /hpf (0-4); Urobilinogen,Urine <2.0 mg/dL (<2.0); WBC,Urine 2 /hpf (0-5)
[2020-07-17] MEDS ORDERED: levETIRAcetam IV 1,500 MG in SALINE 1 100ML.BAG IVPB STA (16:59)
[2020-07-17 17:26] VITALS: BP 144/80; PULSE 57; TEMP 98
== END 2020-07-17 17:30 | disposition home or self-care (01) ==
LOC: EC 15:41
DX: G40.909 Epilepsy, unspecified, not intractable, without status epilepticus (principal); R55 Syncope and collapse; E03.9 Hypothyroidism, unspecified; I10 Essential (primary) hypertension; I25.2 Old myocardial infarction; Z79.899 Other long term (current) drug therapy; Z79.890 Hormone replacement therapy; Z88.5 Allergy status to narcotic agent; Z88.6 Allergy status to analgesic agent; Z88.8 Allergy status to other drugs, medicaments and biological substances; Z91.09 Other allergy status, other than to drugs and biological substances; Z91.02 Food additives allergy status; Z86.73 Personal history of transient ischemic attack (TIA), and cerebral infarction without residual deficits
CPT/HCPCS: 99285; 36415; 93005; 80053; 83735; 84484; 85025; 85610; 85730; 81001; 71046; 70450; 96360; J1953

== ENCOUNTER 2021-03-19 13:22 | Observation (INO) | payer MEDICARE ==
[2021-03-19] MEDS ORDERED: diphenhydrAMINE 50 MG/ML 1 ML VIAL IVP STA (13:42)
[2021-03-19] MEDS ORDERED: methylPREDNISolone SOD SUCCI 125 MG/2 ML VIAL IV STA (13:43)
[2021-03-19] MEDS ORDERED: FAMOTIDINE 20 MG/2 ML VIAL IV STA (13:43)
--- NOTE | 2021-03-19 13:57 | ED ---
General Adult HPI - General Chief complaint: Allergic Reaction Stated complaint: Bee sting/syncope Time Seen by Provider: 03/19/21 13:30 Source: patient, EMS, RN notes reviewed, old records reviewed Mode of arrival: EMS Limitations: no limitations - History of Present Illness Initial comments: This is a 54-year-old female who presents emergency department stating that she has been stung by multiple bees she was stung on the hand twice on the left and once on the face on the left cheek and once in the right arm. Patient had a syncopal episode after and was awake but diaphoretic when EMS arrived. Patient states she has had no difficulty breathing no chest pain no palpitations. Patient denies any throat closing off. Patient states she was worried that she might have a severe reaction so she called EMS. Patient states she has no chest pain patient denies any abdominal pain patient denies any nausea vomiting and again patient has no difficulty breathing or swallowing. - Related Data Home Medications Medication Instructions Recorded Confirmed levETIRAcetam [Keppra] 500 mg PO BID 05/22/15 03/19/21 Levothyroxine Sodium [Synthroid] 88 mcg PO DAILY 12/17/15 03/19/21 Pantoprazole [Protonix] 40 mg PO DAILY 04/03/19 03/19/21 Atorvastatin [Lipitor] 20 mg PO HS 03/19/21 03/19/21 Lisinopril-Hctz 20-12.5 mg 1 tab PO DAILY 03/19/21 03/19/21 [Zestoretic 20-12.5] Allergies Allergy/AdvReac Type Severity Reaction Status Date / Time bee venom protein (honey bee) Allergy Swelling Verified 03/19/21 14:51 codeine Allergy Hallucinati Verified 03/19/21 14:51 ons ibuprofen AdvReac ulcer Verified 03/19/21 14:51 monosodium glutamate [MSG] AdvReac Nausea & Verified 03/19/21 14:51 Vomiting & Diarrhea NSAIDS (Non-Steroidal AdvReac ulcer Verified 03/19/21 14:51 Anti-Inflamma sodium AdvReac Nausea & Verified 03/19/21 14:51 Vomiting & Diarrhea Review of Systems ROS Statement: Those systems with pertinent positive or pertinent negative responses have been documented in the HPI. ROS Other: All systems not noted in ROS Statement are negative. Past Medical History Past Medical History: Chest Pain / Angina, CVA/TIA, Hyperlipidemia, Hypertension, Myocardial Infarction ([place]), Osteoarthritis (OA), Seizure Disorder, Syncope, Thyroid Disorder Additional Past Medical History / Comment(s): Seizures-last one in fall of 2014, syncopal episode-once due to gastric ulcer bleed .given transfusionTIA(no residual problems), DJD, generalized arthritis, hypothyroid, [place] in 2003. Last Myocardial Infarction Date:: 2003 History of Any Multi-Drug Resistant Organisms: None Reported Past Surgical History: Adenoidectomy, Appendectomy, Section, Heart Catheterization, Hysterectomy, Orthopedic Surgery, Tonsillectomy Additional Past Surgical History / Comment(s): 09/06/15 EGD with bx(neg) and colonoscopy, C-Sections x3, hammer toe sx ananya feet, gland removed from L side of neck, 2003 cardiac cath Additional Past Anesthesia/Blood Transfusion Reaction / Comment(s): difficulty waking after aa. Pt states she has received blood before without reaction. Past Psychological History: No Psychological Hx Reported Smoking Status: Never smoker Past Alcohol Use History: None Reported Past Drug Use History: None Reported - Past Family History Mother Family Medical History: Dementia Additional Family Medical History / Comment(s): Had 13 children. She of dementia at the age of 81 yrs. Father Family Medical History: Myocardial Infarction ([place]) Additional Family Medical History / Comment(s): from head injury General Exam - General Exam Comments Initial Comments: GENERAL: Patient is well-developed and well-nourished. Patient is nontoxic and well-hydrated and is in no acute distress. ENT: Neck is soft and supple. No significant lymphadenopathy is noted. Oropharynx is clear. Moist mucous membranes. Neck has full range of motion without eliciting any pain. EYES: The sclera were anicteric and conjunctiva were pink and moist. Extraocular movements were intact and pupils were equal round and reactive to light. Eyelids were unremarkable. PULMONARY: Unlabored respirations. Good breath sounds bilaterally. No audible rales rhonchi or wheezing was noted. CARDIOVASCULAR: There is a regular rate and rhythm without any murmurs gallops or rubs. ABDOMEN: Soft and nontender with normal bowel sounds. No palpable organomegaly was noted. There is no palpable pulsatile mass. SKIN: Small areas of erythema to the right arm 2 small areas of erythema to the left hand and one to the left cheek. NEUROLOGIC: Patient is alert and oriented x3. Cranial nerves II through XII are grossly intact. Motor and sensory are also intact. Normal speech, volume and content. Symmetrical smile. MUSCULOSKELETAL: Normal extremities with adequate strength and full range of motion. No lower extremity swelling or edema. No calf tenderness. LYMPHATICS: No significant lymphadenopathy is noted PSYCHIATRIC: Normal psychiatric evaluation. Limitations: no limitations Course Vital Signs 03/19/21 03/19/21 13:31 16:15 Temperature 98.9 F Pulse Rate 75 88 Respiratory 18 16 Rate Blood Pressure 165/98 156/98 O2 Sat by Pulse 97 97 Oximetry Medical Decision Making - Medical Decision Making Patient was alert and oriented 3 and a left the room the nurse was pushing the medication is Benadryl Solu-Medrol and Pepcid and the patient became completely unresponsive. was in the room and stated that this has happened 7 or 8 times past he does know why but she does have a history of seizures and he belie ves this is a she acts when she has a seizure. This point time a CT of the head was ordered an EKG was done. EKG shows sinus rhythm with occasional PVC at 75 bpm SD interval 162 QRS is 80 QT interval 380 QTC is 424. Patient's EKG shows no ST segment elevation or depression. Since the patient was unresponsive she has come back to her baseline and continues to be at her baseline. Patient's blood pressure was elevated I did give her 10 of hydralazine in the emergency department. - Lab Data Result diagrams: 03/19/21 14:29 03/19/21 14:29 Lab Results 03/19/21 03/19/21 03/19/21 Range/Units 14:03 14:29 14:29 WBC 8.6 (3.8-10.6) k/uL RBC 5.08 (3.80-5.40) m/uL Hgb 15.9 (11.4-16.0) gm/dL Hct 47.0 H (34.0-46.0) % MCV 92.5 (80.0-100.0) fL MCH 31.3 (25.0-35.0) pg MCHC 33.8 (31.0-37.0) g/dL RDW 13.0 (11.5-15.5) % Plt Count 329 (150-450) k/uL MPV 8.0 Neutrophils % 72 % Lymphocytes % 17 % Monocytes % 5 % Eosinophils % 3 % Basophils % 1 % Neutrophils # 6.2 (1.3-7.7) k/uL Lymphocytes # 1.4 (1.0-4.8) k/uL Monocytes # 0.4 (0-1.0) k/uL Eosinophils # 0.2 (0-0.7) k/uL Basophils # 0.1 (0-0.2) k/uL PT 10.2 (9.0-12.0) sec INR 0.9 (<1.2) APTT 21.6 L (22.0-30.0) sec Sodium (137-145) mmol/L Potassium (3.5-5.1) mmol/L Chloride (98-107) mmol/L Carbon Dioxide (22-30) mmol/L Anion Gap mmol/L BUN (7-17) mg/dL Creatinine (0.52-1.04) mg/dL Est GFR (CKD-EPI)AfAm (>60 ml/min/1.73 sqM) Est GFR (CKD-EPI)NonAf (>60 ml/min/1.73 sqM) Glucose (74-99) mg/dL POC Glucose (mg/dL) 104 H (75-99) mg/dL POC Glu Transverse Abdominal Muscle Nurse ID Willing, Sarah Calcium (8.4-10.2) mg/dL Magnesium (1.6-2.3) mg/dL Total Bilirubin (0.2-1.3) mg/dL AST (14-36) U/L ALT (4-34) U/L Alkaline Phosphatase (38-126) U/L Troponin I (0.000-0.034) ng/mL Total Protein (6.3-8.2) g/dL Albumin (3.5-5.0) g/dL 03/19/21 03/19/21 Range/Units 14:29 14:29 WBC (3.8-10.6) k/uL RBC (3.80-5.40) m/uL Hgb (11.4-16.0) gm/dL Hct (34.0-46.0) % MCV (80.0-100.0) fL MCH (25.0-35.0) pg MCHC (31.0-37.0) g/dL RDW (11.5-15.5) % Plt Count (150-450) k/uL MPV Neutrophils % % Lymphocytes % % Monocytes % % Eosinophils % % Basophils % % Neutrophils # (1.3-7.7) k/uL Lymphocytes # (1.0-4.8) k/uL Monocytes # (0-1.0) k/uL Eosinophils # (0-0.7) k/uL Basophils # (0-0.2) k/uL PT (9.0-12.0) sec INR (<1.2) APTT (22.0-30.0) sec Sodium 133 L (137-145) mmol/L Potassium 3.9 (3.5-5.1) mmol/L Chloride 99 (98-107) mmol/L Carbon Dioxide 25 (22-30) mmol/L Anion Gap 9 mmol/L BUN 15 (7-17) mg/dL Creatinine 0.54 (0.52-1.04) mg/dL Est GFR (CKD-EPI)AfAm >90 (>60 ml/min/1.73 sqM) Est GFR (CKD-EPI)NonAf >90 (>60 ml/min/1.73 sqM) Glucose 88 (74-99) mg/dL POC Glucose (mg/dL) (75-99) mg/dL POC Glu Transverse Abdominal Muscle Nurse ID Calcium 10.3 H (8.4-10.2) mg/dL Magnesium 2.2 (1.6-2.3) mg/dL Total Bilirubin 0.6 (0.2-1.3) mg/dL AST 26 (14-36) U/L ALT 20 (4-34) U/L Alkaline Phosphatase 94 (38-126) U/L Troponin I <0.012 (0.000-0.034) ng/mL Total Protein 7.2 (6.3-8.2) g/dL Albumin 4.5 (3.5-5.0) g/dL Disposition Clinical Impression: Syncopal episodes, Bee sting reaction, Hypertensive urgency Disposition: ADMITTED IP TO THIS [facility] Time of Disposition: 16:04
[2021-03-19] MEDS ORDERED: hydrALAZINE HCL 20 MG/ML 1 ML VIAL IVP STA (14:03)
[2021-03-19 14:05] LABS: Glucose,Whole Blood 104 mg/dL (75-99)
--- NOTE | 2021-03-19 14:34 | CT ---
EXAMINATION TYPE: CT brain wo con DATE OF EXAM: 03/19/2021 HISTORY: Unresponsive after bee sting. CT DLP: 1131.4 mGycm. Automated Exposure Control for Dose Reduction was Utilized. TECHNIQUE: CT scan of the head is performed without contrast. COMPARISON: CT brain July 17, 2020. FINDINGS: There is no acute intracranial hemorrhage or midline shift identified. There is mild diff use ventricular and sulcal prominence consistent with diffuse age-related cerebral atrophy. There is mild to moderate low-attenuation in the periventricular white matter consistent with chronic small v essel ischemic change. The globes are intact and the visualized sinuses are clear. Small bony proje ction or osteoma left frontal region axial image 39 presumed benign redemonstrated. IMPRESSION: No acute intracranial hemorrhage or midline shift. There is mild diffuse age-related ce rebral atrophy and mild to moderate chronic small vessel ischemic change redemonstrated. No signific ant change from most recent CT.
[2021-03-19 14:42] LABS: Basophils # (A) 0.1 k/uL (0-0.2); Basophils % (A) 1 %; Eosinophils # (A) 0.2 k/uL (0-0.7); Eosinophils % (A) 3 %; HGB 15.9 gm/dL (11.4-16.0); Lymphocytes # (A) 1.4 k/uL (1.0-4.8); Lymphocytes % (A) 17 %; MCH 31.3 pg (25.0-35.0); MCHC 33.8 g/dL (31.0-37.0); MCV 92.5 fL (80.0-100.0); Monocytes # (A) 0.4 k/uL (0-1.0); Monocytes % (A) 5 %; Neutrophils # (A) 6.2 k/uL (1.3-7.7); Neutrophils % (A) 72 %; Platelet Count 329 k/uL (150-450); RBC 5.08 m/uL (3.80-5.40); WBC 8.6 k/uL (3.8-10.6)
[2021-03-19 14:49] LABS: ALT 20 U/L (4-34); AST 26 U/L (14-36); African American GFR (CKD) >90 (>60 ml/min/1.73 sqM); Albumin 4.5 g/dL (3.5-5.0); Alkaline Phosphatase 94 U/L (38-126); Anion Gap 9 mmol/L; Blood Urea Nitrogen 15 mg/dL (7-17); Calcium 10.3 mg/dL (8.4-10.2); Carbon Dioxide 25 mmol/L (22-30); Chloride 99 mmol/L (98-107); Glucose 88 mg/dL (74-99); Magnesium 2.2 mg/dL (1.6-2.3); Non-African American GFR(CKD) >90 (>60 ml/min/1.73 sqM); Potassium 3.9 mmol/L (3.5-5.1); Sodium 133 mmol/L (137-145); Total Bilirubin 0.6 mg/dL (0.2-1.3); Total Protein 7.2 g/dL (6.3-8.2)
[2021-03-19 15:01] LABS: INR 0.9 (<1.2); Prothrombin Time 10.2 sec (9.0-12.0)
[2021-03-19 15:05] LABS: Partial Thromboplastin Time 21.6 sec (22.0-30.0)
[2021-03-19] MEDS ORDERED: SODIUM CHLORIDE 0.9% 1,000 ML IV ONE (16:04)
[2021-03-19] MEDS ORDERED: HYDROCORTISONE 1% CREAM 30 GM TUBE TOPICAL PRN (20:38)
[2021-03-19] MEDS ORDERED: methylPREDNISolone SOD SUCCI 125 MG/2 ML VIAL IV PRN (21:11)
[2021-03-19] MEDS ORDERED: ATORVASTATIN 20 MG TAB PO SCH (21:15)
[2021-03-19] MEDS: levETIRAcetam 500 MG TAB PO SCH (22:02)
[2021-03-19] MEDS: HEPARIN SODIUM,PORCINE/PF 5,000 UNIT/0.5 ML SYRINGE SQ SCH (22:02)
[2021-03-19] MEDS: FAMOTIDINE 20 MG/2 ML VIAL IV SCH (22:02)
--- NOTE | 2021-03-19 23:23 | P.HPIM ---
History of Present Illness This is a pleasant 70 years old female with past medical history of coronary artery disease, CVA/TIA, seizure disorder on Keppra, hypertension, hyperlipidemia, hypothyroidism, coronary artery disease. She is a patient of Dr. Hernandez. Patient states that she was doing working on her trash ramp when turned out to a nest of Bees underneath it started attacking the patient and bit her on multiple sites, she ended up on the grass after she thinks these bees bit her about 12 times. She was passed out for about 5 minutes followed by 5-10 minutes periods of confusion during this time there was no shakiness, no urine or bowel inconti nence or tongue biting. Her came out and call 911. After she was brought to the hospital she had another 15 minutes of unresponsiveness. Per my discussion with Dr. Pinto there was no documented arrhythmia and telemetry however her blood pressure was significantly elevated more than 200. After that patient she woke up quickly. Currently patient is back to her baseline she is only complaining of from mild pain and itching at the bite site. Patient initially wanted to go home but then agreed to staying in the hospital to be checked She has multiple B diabetes side including 2 in her left arm, 3 in her left cheek and left ear and one in the right and She denies smoking, alcohol or illicit drugs Vitas looks stable, blood pressure is slightly on the high side 147/94. Labs including CBC, INR, BMP and liver enzymes are unremarkable. Troponin 1 are negative at less than 0.012. EKG showing normal sinus rhythm at 75 with occasional PVC. No significant ST-T changes and QTC is 424. CT of the brain: No acute process, mild cerebral atrophy. No significant change from previous CT Review of Systems CONSTITUTIONAL: No fever, no malaise, no fatigue. HEENT: No recent visual problems or hearing problems. Denied any sore throat. CARDIOVASCULAR: No orthopnea, PND, no palpitations, no syncope. PULMONARY: No shortness of breath, no cough, no hemoptysis. GASTROINTESTINAL: No diarrhea, no nausea, no vomiting, no abdominal pain. Normoactive bowel sounds. NEUROLOGICAL: No headaches, no weakness, no numbness. HEMATOLOGICAL: Denies any bleeding or petechiae. GENITOURINARY: Denies any burning micturition, frequency, or urgency. MUSCULOSKELETAL/RHEUMATOLOGICAL: Denies any joint pain, swelling, or any muscle pain. ENDOCRINE: Denies any polyuria or polydipsia. Past Medical History Past Medical History: Chest Pain / Angina, CVA/TIA, Hyperlipidemia, Hypertension, Myocardial Infarction ([place]), Osteoarthritis (OA), Seizure Disorder, Syncope, Thyroid Disorder Additional Past Medical History / Comment(s): Seizures-last one in fall of 2014, syncopal episode-once due to gastric ulcer bleed .given transfusionTIA(no residual problems), DJD, generalized arthritis, hypothyroid, [place] in 2003. Last Myocardial Infarction Date:: 2003 History of Any Multi-Drug Resistant Organisms: None Reported Past Surgical History: Adenoidectomy, Appendectomy, Section, Heart Catheterization, Hysterectomy, Orthopedic Surgery, Tonsillectomy Additional Past Surgical History / Comment(s): 09/06/15 EGD with bx(neg) and colonoscopy, C-Sections x3, hammer toe sx ananya feet, gland removed from L side of neck, 2003 cardiac cath Additional Past Anesthesia/Blood Transfusion Reaction / Comment(s): difficulty waking after aa. Pt states she has received blood before without reaction. Past Psychological History: No Psychological Hx Reported Smoking Status: Never smoker Past Alcohol Use History: None Reported Past Drug Use History: None Reported - Past Family History Mother Family Medical History: Dementia Additional Family Medical History / Comment(s): Had 13 children. She of dementia at the age of 81 yrs. Father Family Medical History: Myocardial Infarction ([place]) Additional Family Medical History / Comment(s): from head injury Medications and Allergies Home Medications Medication Instructions Recorded Confirmed Type levETIRAcetam [Keppra] 500 mg PO BID 05/22/15 03/19/21 History Levothyroxine Sodium [Synthroid] 88 mcg PO DAILY 12/17/15 03/19/21 History Pantoprazole [Protonix] 40 mg PO DAILY 04/03/19 03/19/21 History Atorvastatin [Lipitor] 20 mg PO HS 03/19/21 03/19/21 History Lisinopril-Hctz 20-12.5 mg 1 tab PO DAILY 03/19/21 03/19/21 History [Zestoretic 20-12.5] Allergies Allergy/AdvReac Type Severity Reaction Status Date / Time bee venom protein (honey bee) Allergy Swelling Verified 03/19/21 14:51 codeine Allergy Hallucinati Verified 03/19/21 14:51 ons ibuprofen AdvReac ulcer Verified 03/19/21 14:51 monosodium glutamate [MSG] AdvReac Nausea & Verified 03/19/21 14:51 Vomiting & Diarrhea NSAIDS (Non-Steroidal AdvReac ulcer Verified 03/19/21 14:51 Anti-Inflamma sodium AdvReac Nausea & Verified 03/19/21 14:51 Vomiting & Diarrhea Physical Exam Vitals: Vital Signs Temp Pulse Resp BP Pulse Ox 03/19/21 16:15 88 16 156/98 97 03/19/21 13:31 98.9 F 75 18 165/98 97 Intake and Output 03/19/21 03/19/21 03/19/21 06:59 14:59 22:59 Other: Weight 78.018 kg GENERAL: The patient is alert and oriented x3, not in any acute distress. Well developed, well nourished. HEENT: Pupils are round and equally reacting to light. EOMI. No scleral icterus. No conjunctival pallor. Normocephalic, atraumatic. No pharyngeal erythema. No thyromegaly. CARDIOVASCULAR: S1 and S2 present. No murmurs, rubs, or gallops. PULMONARY: Chest is clear to auscultation, no wheezing or crackles. ABDOMEN: Soft, nontender, nondistended, normoactive bowel sounds. No palpable organomegaly. MUSCULOSKELETAL: No joint swelling or deformity. EXTREMITIES: No cyanosis, clubbing, or pedal edema. NEUROLOGICAL: Gross neurological examination did not reveal any focal deficits. -SKIN: No rashes. No petechiae. Multiple sites of bee stings including left arm, left cheek, left ear and right Results CBC & Chem 7: 03/19/21 14:29 03/19/21 14:29 Labs: Abnormal Lab Results - Last 24 Hours (Table) 03/19/21 03/19/21 03/19/21 Range/Units 14:03 14: 14:29 Hct 47.0 H (34.0-46.0) % APTT 21.6 L (22.0-30.0) sec Sodium (137-145) mmol/L POC Glucose (mg/dL) 104 H (75-99) mg/dL Calcium (8.4-10.2) mg/dL 03/19/21 Range/Units 14:29 Hct (34.0-46.0) % APTT (22.0-30.0) sec Sodium 133 L (137-145) mmol/L POC Glucose (mg/dL) (75-99) mg/dL Calcium 10.3 H (8.4-10.2) mg/dL Assessment and Plan Assessment: Periods of unresponsiveness 2, following bee stings Hypertension Hyperlipidemia History of seizure disorder History of coronary artery disease Hypothyroidism History of osteoarthritis Plan: This is a pleasant 70 years old female who presents with periods of unresp onsiveness suspicious for syncope versus seizure versus other following several bee stings. Continue gentle hydration Continue with Benadryl, steroids as needed for any further ALLERGIC reaction Continue with telemetry, check echocardiogram Cardiology consult Neurology consult given her history of seizure Labs and medication were reviewed.. Continue same treatment. Continue with symptomatic treatment. Resume home medication. Monitor lytes and vitals. DVT and GI prophylaxis. Further recommendations as per clinical course of the patient DVT prophylaxis: Subcutaneous heparin GI Prophylaxis: Pepcid PT/OT: Pending Prognosis is guarded
[2021-03-20] MEDS ORDERED: LEVOTHYROXINE 88 MCG TAB PO SCH (06:30)
[2021-03-20] MEDS ORDERED: ACETAMINOPHEN TAB 325 MG TAB PO PRN (06:42)
[2021-03-20] MEDS: FAMOTIDINE 20 MG/2 ML VIAL IV SCH (08:29)
[2021-03-20] MEDS: HEPARIN SODIUM,PORCINE/PF 5,000 UNIT/0.5 ML SYRINGE SQ SCH (08:30)
[2021-03-20] MEDS: levETIRAcetam 500 MG TAB PO SCH (08:30)
[2021-03-20] MEDS: diphenhydrAMINE 50 MG/ML 1 ML VIAL IVP PRN ×2 (08:33→14:55)
[2021-03-20] MEDS ORDERED: LISINOPRIL-HCTZ 20-12.5 MG 1 EACH TAB PO SCH (09:00)
--- NOTE | 2021-03-20 09:31 | P.CNNES ---
History of Present Illness Consult date: 03/20/21 Requesting physician: Kole Pinto Reason for Consult: syncope vs seizure History of Present Illness: This is a 70-year-old woman with history of epilepsy, syncope, hypertension, hyperlipidemia, hypertension, coronary artery disease who presented to the emergency department on 03/18/2021 for syncopal episode. Some of the history is obtained from medical records. The patient stated that yesterday around 1pm she was picking-up the garbage barrel to take back to her house and all the sudden she was bit multiple times by bees at different sites of her body. She started screaming and on the floor trying to get them off her body and said she passed out as result. It seems that the patient passed out for 5 minutes with post ictal confusion for 5-10 minutes. There is no jerk in of any extremity, urinary or bowel incontinence or tongue bite. As a result her called 911. In the ED the patient she was given Solu-Medrol 125 mg once as well as Benadryl 50 mg IV once as well as Pepcid. It appears in the hospital the patient the had a 15 minute episode of unresponsiveness and her blood pressure at that time was significantly elevated more than 200 (that was documented) but the patient the quickly responded afterwards. In the hospital the patient required hydralazine 10 mg once. Patient stated her last seizure was 2 years ago. She is on Keppra 500mg 1 tab bid. She use to follow-up with Dr. Maurer for neurological management but has not followed-up in 2 years. Patient home medication is Keppra 500 mg 1 tablet twice a day, lisinopril, Synthroid, Lipitor 20 g daily at bedtime, Protonix. As result of bee stings she has swelling at different parts of the body, face, bilateral arms. She said the swelling is subsiding. She denies of any focal weakness, numbness, visual disturbance, headaches. Per the nurse the patient has not had any seizures overnight and not today. Some of the workup in the hospital consisted of: Initial vital signs was blood pressure 165/90, heart rate of 75, respiratory of 18, temperature of 98.9 Fahrenheit oral and pulse ox of 97% at room air. Since the patient has been the hospital the patient has been afebrile. CBC with differential the only thing that is remarkable is hematocrit which is very slightly elevated at 47 normal is between 34-46 which does not seem to significantly elevated. Otherwise the rest of the CBC with differential is unremarkable. Chemistry panel is a sodium of 133 which is slightly low and the calcium is 10.3 is minimally elevated but not remarkable. CT of the head is reported as no acute intracranial hemorrhage or midline shift. There is mild diffuse age-related cerebral atrophy and mild to moderate chronic small vessel ischemic changes redemonstrated. No significant change from most recent CT. EKG is reported as sinus rhythm with the occasional premature ventricular complexes. Possible at anterior infarct, age undetermined. Abnormal EKG. Of note upon reviewing medical record: Patient was seen by Dr. Stephanie Chen in our hospital for syncope versus seizure and 12/18/2015 which was the last progress note and he stated that the patient's the Keppra was subtherapeutic and she was at that time at 500 mg twice a day and he felt the that the there is a possibility of some noncompliance with her medication so he gave extra doses of Dilantin and Keppra. He is a diagnosis was epilepsy as well as syncope. Keppra level was 2.5 and the normal levels are supposed to be between 10/17/1960. Patient had an EEG on 10/21/2016 and it's reported as normal. She also had an EEG on 09/04/2015 and it also reported as normal. Was listed as stroke/TIA on the patient's past medical history in [address] Douglas never stated that the patient has history of stroke or TIA, reviewing the notes. She did have TIA workup in the past it seems. She had MRI of the brain on 09/03/2015 is reported as no evidence of recent infarct. Fairly moderate chronic small vessel ischemic changes noted. She at it is stated that the patient has history of right hemispheric stroke on the MRI and the ordering section and the MRI was done for syncopal episode. I looked at the MRI on the FLAIR sequences and there is no evidence that I was able to capture of old encephalomalacia over the right hemisphere. Review of Systems Review of system: The 12 point system was reviewed and apparent positive and negative per HPI. Past Medical History Past Medical History: Chest Pain / Angina, CVA/TIA, Hyperlipidemia, Hypertension, Myocardial Infarction (AR), Osteoarthritis (OA), Seizure Disorder, Syncope, Thyroid Disorder Additional Past Medical History / Comment(s): Seizures-last one in fall of 2014, syncopal episode-once due to gastric ulcer bleed .given transfusionTIA(no residual problems), DJD, generalized arthritis, hypothyroid, [place] in 2003. Last Myocardial Infarction Date:: 2003 History of Any Multi-Drug Resistant Organisms: None Reported Past Surgical History: Adenoidectomy, Appendectomy, Section, Heart Catheterization, Hysterectomy, Orthopedic Surgery, Tonsillectomy Additional Past Surgical History / Comment(s): 09/06/15 EGD with bx(neg) and colonoscopy, C-Sections x3, hammer toe sx ananya feet, gland removed from L side of neck, 2003 cardiac cath Additional Past Anesthesia/Blood Transfusion Reaction / Comment(s): difficulty waking after aa. Pt states she has received blood before without reaction. Past Psychological History: No Psychological Hx Reported Smoking Status: Never smoker Past Alcohol Use History: None Reported Past Drug Use History: None Reported - Past Family History Mother Family Medical History: Dementia Additional Family Medical History / Comment(s): Had 13 children. She of dementia at the age of 81 yrs. Father Family Medical History: Myocardial Infarction (AR) Additional Family Medical History / Comment(s): from head injury Medications and Allergies Home Medications Medication Instructions Recorded Confirmed Type levETIRAcetam [Keppra] 500 mg PO BID 05/22/15 03/19/21 History Levothyroxine Sodium [Synthroid] 88 mcg PO DAILY 12/17/15 03/19/21 History Pantoprazole [Protonix] 40 mg PO DAILY 04/03/19 03/19/21 History Atorvastatin [Lipitor] 20 mg PO HS 03/19/21 03/19/21 History Lisinopril-Hctz 20-12.5 mg 1 tab PO DAILY 03/19/21 03/19/21 History [Zestoretic 20-12.5] Allergies Allergy/AdvReac Type Severity Reaction Status Date / Time bee venom protein (honey bee) Allergy Swelling Verified 03/19/21 14:51 codeine Allergy Hallucinati Verified 03/19/21 14:51 ons ibuprofen AdvReac ulcer Verified 03/19/21 14:51 monosodium glutamate [MSG] AdvReac Nausea & Verified 03/19/21 14:51 Vomiting & Diarrhea NSAIDS (Non-Steroidal AdvReac ulcer Verified 03/19/21 14:51 Anti-Inflamma sodium AdvReac Nausea & Verified 03/19/21 14:51 Vomiting & Diarrhea Physical Examination - Vital Signs Vital Signs: Vital Signs Temp Pulse Pulse Resp BP BP Pulse Ox 03/20/21 04:00 69 16 134/81 97 03/20/21 02:00 81 16 03/19/21 23:54 81 16 132/80 93 L 03/19/21 21:10 97.8 F 95 16 147/94 95 03/19/21 16:15 88 16 156/98 97 03/19/21 13:31 98.9 F 75 18 165/98 97 Intake and Output 03/19/21 03/20/21 03/20/21 22:59 06:59 14:59 Other: Voiding Method Toilet # Voids 1 1 Weight 78.018 kg 76.8 kg GENERAL: The patient is lying in bed and is not in acute distress. CHEST: The heart rate is regular rate rhythm. No murmurs to auscultation. No carotid bruit bilaterally. LUNG: Clear to auscultation bilaterally no wheezing noted throughout. Not labored breathing. ABDOMEN/GI: Bowel sounds present in all 4 quadrants. No tenderness to palpation throughout. NEUROLOGICAL: Higher mental function: The patient is awake, alert, oriented to self, place and time. Patient is following commands. No aphasia and no neglect. Cranial nerves: The pupils are round, equal and reactive to light and accommodation. Visual singer are full to confrontation throughout. Extraocular movement is intact no nystagmus is noted. Facial sensation is normal to touch throughout. The facial strength is normal throughout. She has some bilateral frontal swelling and some left check swelling. Hearing is normal bilaterally to hand rub. Tongue is midline and moved [id number] without any difficulty. No dysarthria is noted. Shoulder shrug is normal bilaterally. Motor: The strength is 5 over 5 throughout. Normal tone and bulk. She has some swelling over bilateral arms. Cerebellum: Normal finger to nose heel to de jesus bilaterally. Sensation: Sensation is normal to touch throughout. Reflexes (right/left): 2+ throughout. Plantars are downgoing bilaterally. Results - Laboratory Findings CBC and BMP: 03/19/21 14:29 03/19/21 14:29 Abnormal Lab Findings: Abnormal Labs 0803/19/21 03/19/21 14:03 14:29 14:29 Hct 47.0 H APTT 21.6 L Sodium POC Glucose (mg/dL) 104 H Calcium 03/19/21 14:29 Hct APTT Sodium 133 L POC Glucose (mg/dL) Calcium 10.3 H Assessment and Plan Assessment: Patient episode of unresponsiveness are syncopal episode (was stung by bees). They do not seem like seizure. History of epilepsy History of hypertension Hyperlipidemia History of coronary artery disease Plan: I ordered a routine EEG. Continue Keppra 500 mg 1 tablet twice a day Placed on seizure precaution and seizure pads 2-D echo was ordered by the primary team as well TSH is ordered by primary team. I ordered the orthostatic vitals. Every 4 hours neuro checks. On continuous cardiac monitoring. Cardiology is consulted. We'll defer the rest of the medical management to primary team If the EEG does not show any evidence of seizures, then the patient is clear from a neurological standpoint. She needs to follow-up with her neurologist (Dr. Maurer) within 1-2 weeks as an outpatient. The plan is discussed with patient and the primary team. Thank you for the consultation. Brandon Fulton M.D. Neuro-hospitalist Time with Patient: Greater than 30
--- NOTE | 2021-03-20 11:32 | ECHOF ---
Referral Reason:Rule out heart disease MEASUREMENTS -------- HEIGHT: 157.5 cm WEIGHT: 76.7 kg BP: RVIDd: 3.1 cm (< 3.3) IVSd: 1.3 cm (0.6 - 1.1) LVIDd: 3.3 cm (3.9 - 5.3) LVPWd: 2.2 cm (0.6 - 1.1) IVSs: 2.2 cm LVIDs: 2.0 cm LVPWs: 1.9 cm Ao Diam: 2.7 cm (2.0 - 3.7) AV Cusp: 1.8 cm (1.5 - 2.6) LA Diam: 3.1 cm (2.7 - 3.8) MV EXCURSION: 14.577 mm (> 18.000) MV EF SLOPE: 34 mm/s (70 - 150) EPSS: 1.0 cm MV E Edgardo: 0.46 m/s MV DecT: 303 ms MV A Edgardo: 0.73 m/s MV E/A Ratio: 0.63 RAP: 5.00 mmHg RVSP: 15.50 mmHg FINDINGS -------- Sinus rhythm. This was a technically difficult study with suboptimal views. The left ventricular size is normal. There is severe concentric left ventricular hypertrophy. Ove rall left ventricular systolic function is normal with, an EF between 55 - 60 %. The right ventricle is normal in size. The left atrial size is normal. The right atrial size is normal. Lumason used The aortic valve was not well visualized. The mitral valve leaflets are mildly thickened. There is trace mitral regurgitation. The tricuspid valve was not well visualized. Mild tricuspid regurgitation present. Right ventricu lar systolic pressure is normal at < 35 mmHg. The pulmonic valve was not well visualized. There is no pulmonic regurgitation present. The aortic root size is normal. IVC Not well visulized. There is no pericardial effusion. CONCLUSIONS -------- 1. This was a technically difficult study with suboptimal views. 2. There is severe concentric left ventricular hypertrophy. 3. Overall left ventricular systolic function is normal with, an EF between 55 - 60 %. 4. The right ventricle is normal in size. 5. The left atrial size is normal. 6. There is trace mitral regurgitation. 7. Mild tricuspid regurgitation present. 8. There is no pericardial effusion. ENDOCRINOLOGY PHYSICIAN: Kate Stevens RDCS
--- NOTE | 2021-03-20 12:06 | P.CRDCN ---
History of Present Illness History of present illness: HISTORY OF PRESENTING ILLNESS This is a pleasant 70-year-old female past medical history significant for myocardial infarction about 10 years ago with stents placed (unknown details), hypertension, dyslipidemia, epilepsy, syncope. She has seen Dr. Lopez in the office in 2016. We have been asked to see in consultation for syncope after bee stings. Patient is seen and examined at bedside no acute distress. The patient stated that yesterday around 1pm she was picking-up the garbage barrel to take back to her house and all the sudden she was bit multiple times by bees at different sites of her body. She started screaming and on the floor trying to get them off her body and said she passed out as result. It seems that the patient passed out for about 5 minutes and was confused after. As a result her called 911. She denies any chest pain, shortness of breath, palpitations, lightheadedness. She did say that after she was time she did have some dizziness. In the ED the patient was given Solu-Medrol 125 mg once as well as Benadryl 50 mg IV once as well as Pepcid. Patient also given hydralazine 10 mg IV due to hypertension. Patient states that she has had multiple episodes of syncope for these have been related to her seizures in the past. She denies history of diabetes, stroke. She denies any tobacco use or alcohol use. On admission, blood pressure 165/98, heart rate 75, afebrile, maintaining saturations on room air. DIAGNOSTICS EKG reveals sinus rhythm with PVCs. Telemetry tracings indicate sinus mechanism HR 60-70s, with occasional PVCs. Brain CT revealed no acute intracranial hemorrhage or midline shift. Mild diffuse age-related cerebral atrophy and mild to moderate chronic small vessel ischemic change Laboratory reviewed, WBC 8.6, hemoglobin 15.9, platelets 29, sodium 133, potassium 3.9, BUN 58, serum creatinine 0.5, magnesium 2.2, troponin 2 negative, TSH within normal limits. Current cardiac medications include lisinoprilnodular thiazide 2012 0.5 mg daily, atorvastatin 20 mg nightly Most recent Cardiolite stress test 01/2016, inconclusive, no clear cut ischemia due to patient only walking for 6 minutes Event monitor in 2016- no significant arrhythmia REVIEW OF SYSTEMS At the time of my exam: CONSTITUTIONAL: +syncope. Denies fever or chills. CARDIOVASCULAR: Denies chest pain, shortness of breath, orthopnea, PND or palpitations. RESPIRATORY: Denies cough. GASTROINTESTINAL: Denies abdominal pain, diarrhea, constipation, nausea or vomiting. MUSCULOSKELETAL: Denies myalgias. NEUROLOGIC: Denies numbness, tingling, headacbe or weakness. ENDOCRINE: Denies fatigue, weight change, polydipsia or polyurina. GENITOURINARY: Denies burning, hematuria or urgency with micturation. HEMATOLOGIC: Denies history of anemia or bleeding. PHYSICAL EXAMINATION Blood pressure 141/80 heart rate 63 afebrile and maintaining oxygen saturation 97% on room air. CONSTITUTIONAL: No apparent distress. HEENT: Head is normocephalic. Pupils are equal, round. Sclerae anicteric. Mucous membranes of the mouth are moist. No JVD. No carotid bruit. CHEST EXAMINATION: Lungs are clear to auscultation. No chest wall tenderness is noted on palpation or with deep breathing. HEART EXAMINATION: Regular rate and rhythm. S1, S2 heard. No murmurs, gallops or rub. ABDOMEN: Soft, nontender. Positive bowel sounds. EXTREMITIES: 2+ peripheral pulses, no lower extremity edema and no calf tenderness. NEUROLOGIC EXAMINATION: Patient is awake, alert and oriented x3. ASSESSMENT Syncopal episode after being stung by bees. History of epilepsy History of hypertension Hyperlipidemia PLAN Echocardiogram revealed EF 55-60%, trace mitral regurgitation, mild tricuspid regurgitation Neurology following, plan for EEG. Continue cardiac telemetry. Recommend 30 day event monitor placed prior to discharge Continue home cardiac medications Patient to follow up outpatient with Dr. Alcazar Nurse Practitioner note has been reviewed, I agree with a documented findings and plan of care. Patient was seen and examined. Past Medical History Past Medical History: Chest Pain / Angina, CVA/TIA, Hyperlipidemia, Hype rtension, Myocardial Infarction ([place]), Osteoarthritis (OA), Seizure Disorder, Syncope, Thyroid Disorder Additional Past Medical History / Comment(s): Seizures-last one in fall of 2014, syncopal episode-once due to gastric ulcer bleed .given transfusionTIA(no residual problems), DJD, generalized arthritis, hypothyroid, [place] in 2003. Last Myocardial Infarction Date:: 2003 History of Any Multi-Drug Resistant Organisms: None Reported Past Surgical History: Adenoidectomy, Appendectomy, Section, Heart Catheterization, Hysterectomy, Orthopedic Surgery, Tonsillectomy Additional Past Surgical History / Comment(s): 09/06/15 EGD with bx(neg) and colonoscopy, C-Sections x3, hammer toe sx ananya feet, gland removed from L side of neck, 2003 cardiac cath Additional Past Anesthesia/Blood Transfusion Reaction / Comment(s): difficulty waking after aa. Pt states she has received blood before without reaction. Past Psychological History: No Psychological Hx Reported Smoking Status: Never smoker Past Alcohol Use History: None Reported Past Drug Use History: None Reported - Past Family History Mother Family Medical History: Dementia Additional Family Medical History / Comment(s): Had 13 children. She of dementia at the age of 81 yrs. Father Family Medical History: Myocardial Infarction (ME) Additional Family Medical History / Comment(s): from head injury Medications and Allergies Home Medications Medication Instructions Recorded Confirmed Type levETIRAcetam [Keppra] 500 mg PO BID 05/22/15 03/19/21 History Levothyroxine Sodium [Synthroid] 88 mcg PO DAILY 12/17/15 03/19/21 History Pantoprazole [Protonix] 40 mg PO DAILY 04/03/19 03/19/21 History Atorvastatin [Lipitor] 20 mg PO HS 03/19/21 03/19/21 History Lisinopril-Hctz 20-12.5 mg 1 tab PO DAILY 03/19/21 03/19/21 History [Zestoretic 20-12.5] Allergies Allergy/AdvReac Type Severity Reaction Status Date / Time bee venom protein (honey bee) Allergy Swelling Verified 03/19/21 14:51 codeine Allergy Hallucinati Verified 03/19/21 14:51 ons ibuprofen AdvReac ulcer Verified 03/19/21 14:51 monosodium glutamate [MSG] AdvReac Nausea & Verified 03/19/21 14:51 Vomiting & Diarrhea NSAIDS (Non-Steroidal AdvReac ulcer Verified 03/19/21 14:51 Anti-Inflamma sodium AdvReac Nausea & Verified 03/19/21 14:51 Vomiting & Diarrhea Physical Exam Vitals: Vital Signs Temp Pulse Pulse Resp BP BP Pulse Ox 03/20/21 04:00 69 16 134/81 97 03/20/21 02:00 81 16 03/19/21 23:54 81 16 132/80 93 L 03/19/21 21:10 97.8 F 95 16 147/94 95 03/19/21 16:15 88 16 156/98 97 03/19/21 13:31 98.9 F 75 18 165/98 97 Intake and Output 03/19/21 03/20/21 03/20/21 22:59 06:59 14:59 Other: Voiding Method Toilet # Voids 1 1 Weight 78.018 kg 76.8 kg Results 03/19/21 14:29 03/19/21 14:29 Cardiac Enzymes 03/19/21 03/19/21 Range/Units 14:29 14:29 AST 26 (14-36) U/L Troponin I <0.012 (0.000-0.034) ng/mL Coagulation 03/19/21 Range/Units 14:29 PT 10.2 (9.0-12.0) sec APTT 21.6 L (22.0-30.0) sec CBC 03/19/21 Range/Units 14:29 WBC 8.6 (3.8-10.6) k/uL RBC 5.08 (3.80-5.40) m/uL Hgb 15.9 (11.4-16.0) gm/dL Hct 47.0 H (34.0-46.0) % Plt Count 329 (150-450) k/uL Comprehensive Metabolic Panel 03/19/21 Range/Units 14:29 Sodium 133 L (137-145) mmol/L Potassium 3.9 (3.5-5.1) mmol/L Chloride 99 (98-107) mmol/L Carbon Dioxide 25 (22-30) mmol/L BUN 15 (7-17) mg/dL Creatinine 0.54 (0.52-1.04) mg/dL Glucose 88 (74-99) mg/dL Calcium 10.3 H (8.4-10.2) mg/dL AST 26 (14-36) U/L ALT 20 (4-34) U/L Alkaline Phosphatase 94 (38-126) U/L Total Protein 7.2 (6.3-8.2) g/dL Albumin 4.5 (3.5-5.0) g/dL Current Medications Generic Name Dose Route Start Last Admin Trade Name Freq PRN Reason Stop Dose Admin Acetaminophen 650 mg 03/20/21 06:42 03/20/21 07:06 Acetaminophen Tab 325 Mg Tab PO 650 mg Q4HR PRN Administration Fever and/ or Mild Pain Atorvastatin Calcium 20 mg 03/19/21 21:15 03/19/21 22:02 Atorvastatin 20 Mg Tab PO 20 mg HS LOY Administration Diphenhydramine HCl 25 mg 03/19/21 21:10 Diphenhydramine 50 Mg/Ml 1 Ml Vial IVP Q6HR PRN Allergy Symptoms Famotidine 20 mg 03/19/21 21:15 03/19/21 22:02 Famotidine 20 Mg/2 Ml Vial IV 20 mg Q12HR LOY Administration Lisinopril/HCTZ 1 each 03/20/21 09:00 Lisinopril-Hctz 20-12.5 Mg 1 Each Tab PO DAILY LOY Heparin Sodium (Porcine) 5,000 unit 03/19/21 21:15 03/19/21 22:02 Heparin Sodium,Porcine/Pf 5,000 Unit/0.5 Ml Syringe SQ 5,000 unit Q12HR LOY Administration Hydrocortisone 1 applic 03/19/21 20:38 Hydrocortisone 1% Cream 30 Gm Tube TOPICAL BID PRN Allergic Reaction Protocol Levetiracetam 500 mg 03/19/21 21:15 03/19/21 22:02 Levetiracetam 500 Mg Tab PO 500 mg BID LOY Administration Levothyroxine Sodium 88 mcg 03/20/21 06:30 03/20/21 07:06 Levothyroxine 88 Mcg Tab PO 88 mcg 0630 LOY Administration Methylprednisolone Sodium Succinate 100 mg 03/19/21 21:11 Methylprednisolone Sod Succi 125 Mg/2 Ml Vial IV Q12HR PRN Allergic Reaction Intake and Output 03/19/21 03/20/21 03/20/21 22:59 06:59 14:59 Other: Voiding Method Toilet # Voids 1 1 Weight 78.018 kg 76.8 kg 03/19/21 14:29 03/19/21 14:29
--- NOTE | 2021-03-20 15:03 | EEG ---
ELECTROENCEPHALOGRAM REPORT DATE OF SERVICE: 03/20/2021. CLINICAL HISTORY: This is a 70-year-old woman with a history of seizure as well as syncopal episode, who presented to the emergency department because of a syncopal episode. The video EEG is obtained to evaluate for seizure epileptiform activity. RELEVANT MEDICATIONS: Keppra. EEG TYPE: A routine 21 channel EEG is performed with video using the 10/20 electrode placement system. DESCRIPTION: Wakefulness and drowsiness are obtained. During wakefulness, there is a posterior dominant rhythm of low to moderate voltage of 8.5-9 hertz activity that is well modulated, well sustained. There was no physiological stage 2 sleep architecture. There is no focal slowing. Interictal and ictal are none. ACTIVATION PROCEDURE: Photic stimulation did evoke a posterior driving response at multiple flash frequencies. There is no abnormality during the photic stimulation. Hyperventilation is not performed. CLINICAL INTERPRETATION: This is a normal routine EEG. There are no focal slowing, epileptiform discharges or seizure on the EEG. Clinical correlation is recommended. MMDONNA / IJN: [id number] / MTDD
[2021-03-20 15:09] VITALS: BP 131/68; PULSE 60; RESP 18; TEMP 97.9
--- NOTE | 2021-03-21 00:16 | P.DS ---
Providers Date of admission: 03/19/21 16:04 Attending physician: Logan Diaz MD Consults: 03/19/21 16:04 Consult Physician Urgent Consulting Provider: Brandon Fulton Consult Reason/Comments: Syncope versus seizure Do you want consulting provider notified?: Yes 03/19/21 21:08 Consult Physician Urgent Consulting Provider: Abdullahi Alcazar Consult Reason/Comments: periods of unresponsiveness after bee stings Do you want consulting provider notified?: Yes Primary care physician: Sherwin Hernandez Hospital Course: Diagnoses: Periods of unresponsiveness 2, following bee stings. Suspected secondary to syncope. Cleared by audio production engineer and neurologist. Event monitor upon discharge Hypertension Hyperlipidemia History of seizure disorder History of coronary artery disease Hypothyroidism History of osteoarthritis Hospital course This is a pleasant 70 years old female with past medical history of coronary artery disease, CVA/TIA, seizure disorder on Keppra, hypertension, hyperlipidemia, hypothyroidism, coronary artery disease. She is a patient of Dr. Hernandez. Patient states that she was doing working on her trash ramp when turned out to a nest of Bees underneath it started attacking the patient and bit her on multiple sites, she ended up on the grass after she thinks these bees bit her about 12 times. She woke up after 10 minutes and she has another episode in the emergency room for about 15 minutes, after that patient is back to her normal self. Orthostatic were negative. Labs and CT of the brain were unremarkable. Evaluated by neurologist recommended EEG and it was negative for epileptiform discharge Echocardiogram: Ejection fraction of 55-60% with severe left concentric ventricular hypertrophy Instructional Technology Teacher and neurologist both cleared The patient for discharge. Cardiologi st recommended event monitor and follow-up as an outpatient with Dr. Alcazar Patient herself is back to baseline, she denies any other symptoms and she was eager to go home today. She has some local areas of bee stings but no chest pain or dyspnea. No fever. No change in urine or bowel habits. No headache or dizziness Problems and management plan were discussed with the patient and he verbalized understanding and acceptance Patient was found stable and can be discharged home however he needs follow-up as an outpatient. Patient was instructed to follow up with PCP within one week and patient agrees With the appointments made for her on 03/26 as stated she will follow up patient was instructed to follow up with Dr. Alcazar 3 weeks and she agrees to call and make appointment Can also was instructed to follow up with neurologist Dr. glover in 1-2 weeks and she agrees to call and make her own appointment Physical exam Gen: patient is a AAOx3, no distress CVS: S1-S2, RRR, no murmur Lungs: B/L CTA, no wheezing Abdomen: soft, no distention, no tenderness, positive bowel sounds Extremity: no leg edema or induration -Skin: No petechiae. Several areas of bee stings, mild papules on the left cheek, right and left forearms, improving Time spent more than 35 minutes Plan - Discharge Summary New Discharge Prescriptions: Continue RX: levETIRAcetam [Keppra] 500 mg PO BID RX: Levothyroxine Sodium [Synthroid] 88 mcg PO DAILY RX: Pantoprazole [Protonix] 40 mg PO DAILY RX: Lisinopril-Hctz 20-12.5 mg [Zestoretic 20-12.5] 1 tab PO DAILY RX: Atorvastatin [Lipitor] 20 mg PO HS Discharge Medication List RX: levETIRAcetam [Keppra] 500 mg PO BID 05/22/15 [History] RX: Levothyroxine Sodium [Synthroid] 88 mcg PO DAILY 12/17/15 [History] RX: Pantoprazole [Protonix] 40 mg PO DAILY 04/03/19 [History] RX: Atorvastatin [Lipitor] 20 mg PO HS 03/19/21 [History] RX: Lisinopril-Hctz 20-12.5 mg [Zestoretic 20-12.5] 1 tab PO DAILY 03/19/21 [History] Follow up Appointment(s)/Referral(s): Sherwin Hernandez MD [Primary Care Provider] - 03/26/21 3:20 pm Stephanie Glover MD [REFERRING] - 1 Week (Patient to call office to set up appt. ) Abdullahi Alcazar MD [STAFF PHYSICIAN] - 3 Weeks (Office to call patient to set up follow-up appt. Otherwise you call office in one week to make your own appoitment please ) Patient Instructions/Handouts: Seizure/Epilepsy Discharge Instructions & Follow-Up, Insect Bite or Sting (DC), Heart Healthy Diet (DC), Syncope (DC), Hypertension (DC) Activity/Diet/Wound Care/Special Instructions: heart healthy diet activity is restricted till you see your doctor Discharge Disposition: HOME SELF-CARE
== END 2021-03-20 17:33 | disposition home or self-care (01) ==
LOC: EC 13:22 → 3SCARD 16:04
PROVIDERS: ADMIT Internal Medicine; ATTEND Internal Medicine
DX: R55 Syncope and collapse (principal); T63.441A Toxic effect of venom of bees, accidental (unintentional), initial encounter; E11.9 Type 2 diabetes mellitus without complications; E03.9 Hypothyroidism, unspecified; E78.5 Hyperlipidemia, unspecified; G40.909 Epilepsy, unspecified, not intractable, without status epilepticus; I11.9 Hypertensive heart disease without heart failure; I16.0 Hypertensive urgency; I25.10 Atherosclerotic heart disease of native coronary artery without angina pectoris; I25.2 Old myocardial infarction; I49.3 Ventricular premature depolarization; Z79.890 Hormone replacement therapy; Z79.899 Other long term (current) drug therapy; Z82.49 Family history of ischemic heart disease and other diseases of the circulatory system; Z86.73 Personal history of transient ischemic attack (TIA), and cerebral infarction without residual deficits; Z90.710 Acquired absence of both cervix and uterus
CPT/HCPCS: 99285; 96374; 96376 ×2; 96372 ×2; 96375; 36415; 95816; 93005; 93306; 93270; 80053; 84443; 83735; 84484 ×2; 85025; 85610; 85730; 70450; G0378 ×2; J0360; J1200 ×2; J2930; J1644 ×2

== ENCOUNTER 2021-06-02 11:50 | Emergency (ER) | payer MEDICARE ==
[2021-06-02 12:21] VITALS: TEMP 98.4
[2021-06-02 12:22] VITALS: BP 156/93; PULSE 68; RESP 18
[2021-06-02] MEDS ORDERED: DIPH,PERTUS(ACELL)TETVAC-LF 0.5 ML VIAL IM ONE (12:34)
--- NOTE | 2021-06-02 12:38 | ED ---
General Adult HPI - General Chief complaint: Skin/Abscess/Foreign Body Stated complaint: scratched by cat Time Seen by Provider: 06/02/21 12:29 Source: patient, RN notes reviewed, old records reviewed Mode of arrival: ambulatory Limitations: no limitations - History of Present Illness Initial comments: 71-year-old female presenting for evaluation of cat scratch to the right lower leg. This occurred just prior to arrival. The patient had cleansed the wound and applied peroxide. No other injury reported. Tetanus not up-to-date. - Related Data Home Medications Medication Instructions Recorded Confirmed levETIRAcetam [Keppra] 500 mg PO BID 05/22/15 03/19/21 Levothyroxine Sodium [Synthroid] 88 mcg PO DAILY 12/17/15 03/19/21 Pantoprazole [Protonix] 40 mg PO DAILY 04/03/19 03/19/21 Atorvastatin [Lipitor] 20 mg PO HS 03/19/21 03/19/21 Lisinopril-Hctz 20-12.5 mg 1 tab PO DAILY 03/19/21 03/19/21 [Zestoretic 20-12.5] Previous Rx's Medication Instructions Recorded Amoxic-Pot Clav 875-125Mg 1 tab PO BID 5 Days #10 tab 06/02/21 [Augmentin 875-125] Allergies Allergy/AdvReac Type Severity Reaction Status Date / Time bee venom protein (honey bee) Allergy Swelling Verified 06/02/21 12:21 codeine Allergy Hallucinati Verified 06/02/21 12:21 ons ibuprofen AdvReac ulcer Verified 06/02/21 12:21 monosodium glutamate [MSG] AdvReac Nausea & Verified 06/02/21 12:21 Vomiting & Diarrhea NSAIDS (Non-Steroidal AdvReac ulcer Verified 06/02/21 12:21 Anti-Inflamma sodium AdvReac Nausea & Verified 06/02/21 12:21 Vomiting & Diarrhea Review of Systems ROS Statement: Those systems with pertinent positive or pertinent negative responses have been documented in the HPI. ROS Other: All systems not noted in ROS Statement are negative. Past Medical History Past Medical History: Chest Pain / Angina, CVA/TIA, Hyperlipidemia, Hypertension, Myocardial Infarction ([place]), Osteoarthritis (OA), Seizure Disorder, Syncope, Thyroid Disorder Additional Past Medical History / Comment(s): Seizures-last one in fall of 2014, syncopal episode-once due to gastric ulcer bleed .given transfusionTIA(no residual problems), DJD, generalized arthritis, hypothyroid, [place] in 2003. Last Myocardial Infarction Date:: 2003 History of Any Multi-Drug Resistant Organisms: None Reported Past Surgical History: Adenoidectomy, Appendectomy, Section, Heart Catheterization, Hysterectomy, Orthopedic Surgery, Tonsillectomy Additional Past Surgical History / Comment(s): 09/06/15 EGD with bx(neg) and colonoscopy, C-Sections x3, hammer toe sx ananya feet, gland removed from L side of neck, 2003 cardiac cath Additional Past Anesthesia/Blood Transfusion Reaction / Comment(s): difficulty waking after aa. Pt states she has received blood before without reaction. Past Psychological History: No Psychological Hx Reported Smoking Status: Never smoker Past Alcohol Use History: None Reported Past Drug Use History: None Reported - Past Family History Mother Family Medical History: Dementia Additional Family Medical History / Comment(s): Had 13 children. She of dementia at the age of 81 yrs. Father Family Medical History: Myocardial Infarction ([place]) Additional Family Medical History / Comment(s): from head injury General Exam Limitations: no limitations General appearance: alert, in no apparent distress Head exam: Present: atraumatic, normocephalic Eye exam: Present: normal appearance, PERRL ENT exam: Present: normal exam Neck exam: Present: normal inspection. Absent: tenderness Respiratory exam: Present: normal lung sounds bilaterally. Absent: respiratory distress Cardiovascular Exam: Present: regular rate, normal rhythm GI/Abdominal exam: Present: soft. Absent: distended, tenderness Extremities exam: Present: other (Puncture wound, posterior right lower no surrounding cellulitis or erythema.) Neurological exam: Present: alert, oriented X3, CN II-XII intact. Absent: motor sensory deficit Course Vital Signs 06/02/21 12:19 Temperature 98.4 F Pulse Rate 68 Respiratory 18 Rate Blood Pressure 156/93 O2 Sat by Pulse 95 Oximetry Medical Decision Making - Medical Decision Making Tetanus updated, prophylactic antibiotics prescribed, return parameters discussed. Disposition Clinical Impression: Cat scratch of right lower leg Disposition: HOME SELF-CARE Condition: Good Instructions (If sedation given, give patient instructions): Animal Bite (ED) Prescriptions: Amoxic-Pot Clav 875-125Mg [Augmentin 875-125] 1 tab PO BID 5 Days #10 tab Is patient prescribed a controlled substance at d/c from ED?: No Referrals: Sherwin Hernandez MD [Primary Care Provider] - 1-2 days Time of Disposition: 12:38
== END 2021-06-02 12:52 | disposition home or self-care (01) ==
LOC: EC 11:50
DX: S80.811A Abrasion, right lower leg, initial encounter (principal); S81.831A Puncture wound without foreign body, right lower leg, initial encounter; I10 Essential (primary) hypertension; I25.2 Old myocardial infarction; E07.9 Disorder of thyroid, unspecified; G40.909 Epilepsy, unspecified, not intractable, without status epilepticus; M19.90 Unspecified osteoarthritis, unspecified site; E78.5 Hyperlipidemia, unspecified; Z88.6 Allergy status to analgesic agent; Z88.5 Allergy status to narcotic agent; Z88.8 Allergy status to other drugs, medicaments and biological substances; Z79.899 Other long term (current) drug therapy; Z91.018 Allergy to other foods; Z23 Encounter for immunization; Z86.73 Personal history of transient ischemic attack (TIA), and cerebral infarction without residual deficits; W55.03XA Scratched by cat, initial encounter
CPT/HCPCS: 90471; 90715; 99283

== ENCOUNTER 2022-01-08 10:03 | Observation (INO) | payer MEDICARE ==
[2022-01-08] MEDS ORDERED: LISINOPRIL-HCTZ 20-12.5 MG 1 EACH TAB PO STA (10:27)
[2022-01-08 10:48] LABS: Basophils # (A) 0.1 k/uL (0-0.2); Basophils % (A) 1 %; Eosinophils # (A) 0.2 k/uL (0-0.7); Eosinophils % (A) 2 %; HCT 43.5 % (34.0-46.0); HGB 14.4 gm/dL (11.4-16.0); Lymphocytes # (A) 0.9 k/uL (1.0-4.8); Lymphocytes % (A) 12 %; MCHC 33.1 g/dL (31.0-37.0); MCV 93.5 fL (80.0-100.0); Mean Platelet Volume 7.1; Monocytes # (A) 0.4 k/uL (0-1.0); Monocytes % (A) 5 %; Neutrophils # (A) 6.4 k/uL (1.3-7.7); Neutrophils % (A) 80 %; Platelet Count 321 k/uL (150-450); RBC 4.66 m/uL (3.80-5.40); RDW 12.7 % (11.5-15.5); WBC 8.1 k/uL (3.8-10.6)
[2022-01-08 11:07] LABS: ALT 23 U/L (4-34); AST 23 U/L (14-36); African American GFR (CKD) >90 (>60 ml/min/1.73 sqM); Albumin 4.3 g/dL (3.5-5.0); Alkaline Phosphatase 87 U/L (38-126); Anion Gap 5 mmol/L; Blood Urea Nitrogen 14 mg/dL (7-17); Calcium 9.5 mg/dL (8.4-10.2); Carbon Dioxide 29 mmol/L (22-30); Chloride 99 mmol/L (98-107); Glucose 101 mg/dL (74-99); Magnesium 2.2 mg/dL (1.6-2.3); Non-African American GFR(CKD) >90 (>60 ml/min/1.73 sqM); Sodium 133 mmol/L (137-145); Total Bilirubin 0.8 mg/dL (0.2-1.3); Total Protein 7.1 g/dL (6.3-8.2)
[2022-01-08 11:08] LABS: Partial Thromboplastin Time 22.6 sec (22.0-30.0); Prothrombin Time 10.5 sec (9.0-12.0)
--- NOTE | 2022-01-08 11:42 | XR ---
EXAMINATION TYPE: XR chest 2V DATE OF EXAM: 01/08/2022 COMPARISON: Prior chest x-ray July 17, 2020 HISTORY: Syncope and weakness. TECHNIQUE: Frontal and lateral views of the chest are obtained. FINDINGS: There is mild chronic parenchymal change without suspicious new focal air space opacity, p leural effusion, or pneumothorax seen. Cardiomegaly remains present. Multilevel spurring in the thora columbar spine redemonstrated. IMPRESSION: Chronic changes and cardiomegaly without acute pulmonary process. No significant change from prior.
--- NOTE | 2022-01-08 12:13 | ED ---
Dizziness HPI - General Chief Complaint: Syncope Stated Complaint: syncope Time Seen by Provider: 01/08/22 10:07 Source: patient, EMS Mode of arrival: EMS Limitations: no limitations - History of Present Illness Initial Comments: Patient is a 71-year-old female with a past medical history significant for syncope, myocardial infarction, and seizure who presents to the emergency department for evaluation of syncope. Patient had a syncopal episode this m orning. She states she fell dizzy as if the room was spinning so called her neighbor and then laid down on the carpet where she lost consciousness. Unknown how long patient was unconscious. Patient did not hit her head. Patient states her dizziness resolved in the ambulance. She denies fever, chills, chest pain, palpitations, sweating, shortness of breath, abdominal pain, nausea, vomiting, and diarrhea. It appears the patient has been evaluated for syncope several times. Patient had a 30 day chief diversity officer last year which showed frequent PVCs and occasional PACs. - Related Data Home Medications Medication Instructions Recorded Confirmed levETIRAcetam [Keppra] 500 mg PO BID 05/22/15 01/08/22 Levothyroxine Sodium [Synthroid] 88 mcg PO DAILY 12/17/15 01/08/22 Pantoprazole [Protonix] 40 mg PO DAILY 04/03/19 01/08/22 Atorvastatin [Lipitor] 20 mg PO HS 03/19/21 01/08/22 Lisinopril-Hctz 20-12.5 mg 1 tab PO DAILY 03/19/21 01/08/22 [Zestoretic 20-12.5] Dorzolamide 2% [Trusopt 2%] 1 drop BOTH EYES BID 01/08/22 01/08/22 Allergies Allergy/AdvReac Type Severity Reaction Status Date / Time bee venom protein (honey bee) Allergy Anaphylaxis Verified 01/08/22 11:21 codeine AdvReac Hallucinati Verified 01/08/22 11:21 ons ibuprofen AdvReac ulcer Verified 01/08/22 11:21 monosodium glutamate [MSG] AdvReac Nausea & Verified 01/08/22 11:21 Vomiting & Diarrhea NSAIDS (Non-Steroidal AdvReac ulcer Verified 01/08/22 11:21 Anti-Inflamma sodium AdvReac Nausea & Verified 01/08/22 11:21 Vomiting & Diarrhea Review of Systems ROS Statement: Those systems with pertinent positive or pertinent negative responses have been documented in the HPI. ROS Other: All systems not noted in ROS Statement are negative. Past Medical History Past Medical History: Chest Pain / Angina, CVA/TIA, Hyperlipidemia, Hypertension, Myocardial Infarction ([place]), Osteoarthritis ([place]), Seizure Disorder, Syncope, Thyroid Disorder Additional Past Medical History / Comment(s): Seizures-last one in fall of 2014, syncopal episode-once due to gastric ulcer bleed .given transfusionTIA(no residual problems), DJD, generalized arthritis, hypothyroid, [place] in 2003. Last Myocardial Infarction Date:: 2003 History of Any Multi-Drug Resistant Organisms: None Reported Past Surgical History: Adenoidectomy, Appendectomy, Section, Heart Catheterization, Hysterectomy, Orthopedic Surgery, Tonsillectomy Additional Past Surgical History / Comment(s): 09/06/15 EGD with bx(neg) and colonoscopy, C-Sections x3, hammer toe sx ananya feet, gland removed from L side of neck, 2003 cardiac cath Additional Past Anesthesia/Blood Transfusion Reaction / Comment(s): difficulty waking after aa. Pt states she has received blood before without reaction. Past Psychological History: No Psychological Hx Reported Smoking Status: Never smoker Past Alcohol Use History: None Reported Past Drug Use History: None Reported - Past Family History Mother Family Medical History: Dementia Additional Family Medical History / Comment(s): Had 13 children. She of dementia at the age of 81 yrs. Father Family Medical History: Myocardial Infarction ([place]) Additional Family Medical History / Comment(s): from head injury General Exam Limitations: no limitations Head exam: Present: atraumatic, normocephalic, normal inspection Eye exam: Present: normal appearance, PERRL, EOMI. Absent: scleral icterus, conjunctival injection, periorbital swelling Respiratory exam: Present: normal lung sounds bilaterally. Absent: respiratory distress, wheezes, rales, rhonchi, stridor Cardiovascular Exam: Present: regular rate, normal rhythm, normal heart sounds. Absent: systolic murmur, diastolic murmur, rubs, gallop, clicks GI/Abdominal exam: Present: soft, normal bowel sounds. Absent: distended, tenderness, guarding, rebound, rigid Extremities exam: Present: normal inspection. Absent: pedal edema Neurological exam: Present: alert, oriented X3, CN II-XII intact Psychiatric exam: Present: normal affect, normal mood Skin exam: Present: warm, dry, intact, normal color. Absent: rash Course Vital Signs 01/08/22 10:06 Temperature 97.8 F Pulse Rate 65 Respiratory 16 Rate Blood Pressure 196/106 O2 Sat by Pulse 96 Oximetry EKG Findings - EKG Comments: EKG Findings:: EKG taken at 11:41. Sinus bradycardia, new T-wave inversions in V5, V6, lead 3. vent rate 53. IL interval 151. QRS duration 86. QTC 410 Medical Decision Making - Medical Decision Making This is a 71-year-old female who presents for evaluation of syncope. Thorough history and examination were performed. Patient cries continuously during my exam to to her dying this past October. Other than that patient looks well. Denies dizziness currently. Etiologies of syncope were explored. EKG shows sinus bradycardia with new T- wave inversions in V5, V6, and lead 3. Patient denies chest pain and shortness of breath. Initial troponin is within normal limits. Case discussed with Yolis moralez NP at Dr. Hernandez's office. Patient will be admitted for observation and trending of troponin. Patient is also open to mental health evaluation. I will consult psychiatric services. Dr. Velasquez is my attending. - Lab Data Result diagrams: 01/08/22 10:30 01/08/22 10:30 Lab Results 01/08/22 01/08/22 01/08/22 Range/Units 10:30 10:30 10:30 WBC 8.1 (3.8-10.6) k/uL RBC 4.66 (3.80-5.40) m/uL Hgb 14.4 (11.4-16.0) gm/dL Hct 43.5 (34.0-46.0) % MCV 93.5 (80.0-100.0) fL MCH 31.0 (25.0-35.0) pg MCHC 33.1 (31.0-37.0) g/dL RDW 12.7 (11.5-15.5) % Plt Count 321 (150-450) k/uL MPV 7.1 Neutrophils % 80 % Lymphocytes % 12 % Monocytes % 5 % Eosinophils % 2 % Basophils % 1 % Neutrophils # 6.4 (1.3-7.7) k/uL Lymphocytes # 0.9 L (1.0-4.8) k/uL Monocytes # 0.4 (0-1.0) k/uL Eosinophils # 0.2 (0-0.7) k/uL Basophils # 0.1 (0-0.2) k/uL PT 10.5 (9.0-12.0) sec INR 1.0 (<1.2) APTT 22.6 (22.0-30.0) sec Sodium 133 L (137-145) mmol/L Potassium 4.0 (3.5-5.1) mmol/L Chloride 99 (98-107) mmol/L Carbon Dioxide 29 (22-30) mmol/L Anion Gap 5 mmol/L BUN 14 (7-17) mg/dL Creatinine 0.56 (0.52-1.04) mg/dL Est GFR (CKD-EPI)AfAm >90 (>60 ml/min/1.73 sqM) Est GFR (CKD-EPI)NonAf >90 (>60 ml/min/1.73 sqM) Glucose 101 H (74-99) mg/dL Calcium 9.5 (8.4-10.2) mg/dL Magnesium 2.2 (1.6-2.3) mg/dL Total Bilirubin 0.8 (0.2-1.3) mg/dL AST 23 (14-36) U/L ALT 23 (4-34) U/L Alkaline Phosphatase 87 (38-126) U/L Troponin I (0.000-0.034) ng/mL Total Protein 7.1 (6.3-8.2) g/dL Albumin 4.3 (3.5-5.0) g/dL 01/08/22 Range/Units 10:30 WBC (3.8-10.6) k/uL RBC (3.80-5.40) m/uL Hgb (11.4-16.0) gm/dL Hct (34.0-46.0) % MCV (80.0-100.0) fL MCH (25.0-35.0) pg MCHC (31.0-37.0) g/dL RDW (11.5-15.5) % Plt Count (150-450) k/uL MPV Neutrophils % % Lymphocytes % % Monocytes % % Eosinophils % % Basophils % % Neutrophils # (1.3-7.7) k/uL Lymphocytes # (1.0-4.8) k/uL Monocytes # (0-1.0) k/uL Eosinophils # (0-0.7) k/uL Basophils # (0-0.2) k/uL PT (9.0-12.0) sec INR (<1.2) APTT (22.0-30.0) sec Sodium (137-145) mmol/L Potassium (3.5-5.1) mmol/L Chloride (98-107) mmol/L Carbon Dioxide (22-30) mmol/L Anion Gap mmol/L BUN (7-17) mg/dL Creatinine (0.52-1.04) mg/dL Est GFR (CKD-EPI)AfAm (>60 ml/min/1.73 sqM) Est GFR (CKD-EPI)NonAf (>60 ml/min/1.73 sqM) Glucose (74-99) mg/dL Calcium (8.4-10.2) mg/dL Magnesium (1.6-2.3) mg/dL Total Bilirubin (0.2-1.3) mg/dL AST (14-36) U/L ALT (4-34) U/L Alkaline Phosphatase (38-126) U/L Troponin I <0.012 (0.000-0.034) ng/mL Total Protein (6.3-8.2) g/dL Albumin (3.5-5.0) g/dL Disposition Clinical Impression: Syncope, Dizziness, Nonspecific ST-T wave electrocardiographic changes Disposition: ADMITTED IP TO THIS [facility] Condition: Good Referrals: Sherwin Hernandez MD [Primary Care Provider] - 1-2 days Decision Time: 12:27
[2022-01-08 13:06] LABS: Appearance,Urine Clear (Clear); Bilirubin,Urine Negative (Negative); Blood,Urine Negative (Negative); Color,Urine Light Yellow; Glucose,Urine (UA) Negative (Negative); Ketones,Urine Negative (Negative); Leukocyte Esterase,Urine Negative (Negative); Nitrite,Urine Negative (Negative); Protein,Urine Negative (Negative); Specific Gravity,Urine 1.007 (1.001-1.035); Urobilinogen,Urine <2.0 mg/dL (<2.0)
[2022-01-08] MEDS ORDERED: ACETAMINOPHEN TAB 325 MG TAB PO PRN (17:54)
[2022-01-08] MEDS: DORZOLAMIDE HCL 2% DROPS 10 ML BTL BOTH EYES SCH (20:45)
[2022-01-08] MEDS: ATORVASTATIN 20 MG TAB PO SCH (20:45)
[2022-01-08] MEDS: levETIRAcetam 500 MG TAB PO SCH (20:47)
[2022-01-09] MEDS: LEVOTHYROXINE 88 MCG TAB PO SCH (05:28)
[2022-01-09] MEDS: PANTOPRAZOLE 40 MG TABLET PO SCH (08:56)
[2022-01-09] MEDS: DORZOLAMIDE HCL 2% DROPS 10 ML BTL BOTH EYES SCH ×2 (08:56→20:25)
[2022-01-09] MEDS: LISINOPRIL-HCTZ 20-12.5 MG 1 EACH TAB PO SCH (08:56)
[2022-01-09] MEDS: levETIRAcetam 500 MG TAB PO SCH ×2 (08:56→20:25)
[2022-01-09 09:04] VITALS: RESP 16
--- NOTE | 2022-01-09 09:25 | CA ---
Transthoracic Echo Report Name: Delmy Laura Age: 71 Gender: F : 1950 Exam Date: 01/08/2022 16:16 Exam Location: [facility] Ht (in): 62 Wt (lb): 164 Ordering Physician: Mary Butcher [facility] Attending/Referring Phys: Franchise Manager Kate Brooke RDCS Procedure CPT: Indications: Syncope Cardiac Hx: Technical Quality: Fair Contrast 1: Total Dose (mL): Contrast 2: Total Dose (mL): MEASUREMENTS (Male / Female) Normal Values 2D ECHO LV Diastolic Diameter PLAX 3.2 cm 4.2 - 5.9 / 3.9 - 5.3 cm LV Systolic Diameter PLAX 1.8 cm IVS Diastolic Thickness 1.3 cm 0.6 - 1.0 / 0.6 - 0.9 cm LVPW Diastolic Thickness 1.4 cm 0.6 - 1.0 / 0.6 - 0.9 cm LV Relative Wall Thickness 0.8 RV Internal Dim ED PLAX 2.6 cm M-MODE Aortic Root Diameter MM 2.9 cm LA Systolic Diameter MM 4.2 cm LA Ao Ratio MM 1.4 MV E Point Septal Separation 0.5 cm AV Cusp Separation MM 1.7 cm DOPPLER AV Peak Velocity 118.0 cm/s AV Peak Gradient 5.6 mmHg AI Peak Velocity 188.2 cm/s AI Peak Gradient 14.2 mmHg AI Pressure Half Time 697.4 ms MV Area PHT 2.5 cm??? MR Peak Velocity 103.4 cm/s MR Peak Gradient 4.3 mmHg Mitral E Point Velocity 65.9 cm/s Mitral A Point Velocity 85.9 cm/s Mitral E to A Ratio 0.8 MV Deceleration Time 300.6 ms TR Peak Velocity 161.2 cm/s TR Peak Gradient 10.4 mmHg Right Ventricular Systolic Press 15.4 mmHg FINDINGS Left Ventricle Mildly increased septal wall thickness. Moderately increased posterior wall thickness. Left ventricular ejection fraction is estimated at 55-60 %. Left ventricular cavity size normal. Right Ventricle The right ventricle is normal in size and function. Right Atrium The right atrium is normal in size. Left Atrium The left atrium is normal in size. Mitral Valve Structurally normal mitral valve without significant stenosis or prolapse. There is mild mitral regurgitation. Aortic Valve Structurally normal aortic valve without significant sclerosis or stenosis. There is no aortic regurgitation. Tricuspid Valve Structurally normal tricuspid valve without significant stenosis. Pulmonary artery systolic pressure is normal. Mild tricuspid regurgitation. Pulmonic Valve Structurally normal pulmonic valve without significant stenosis. There is no pulmonic regurgitation. Pericardium Normal pericardium without effusion. Aorta Normal aortic root dimension. CONCLUSIONS Normal left ventricular dimension and systolic from Previewed by: Dr. Mike Lindquist MD (Electronically Signed) Final Date: 09 Jan 2022 09:24
--- NOTE | 2022-01-09 09:45 | P.HPIM ---
History of Present Illness This is a pleasant 71 years old female with past medical history of CVA/TIA, Hyperlipidemia, Hypertension, Osteoarthritis (OA), Seizure Disorder, Syncope, hypothyroidism Patient is complaining of syncope. Patient states that she presents because she was feeling clammy and sweaty herself, she felt the room spinning a little bit and within 3 minutes while she was trying to lock the front door for her neighbor to come and she passed out, she was on the floor for about 5 minutes. denies any tongue biting. no urine or bowel incontinence, no reported or witnessed seizure-like activity but patient was alone with her dog only. Jerardo mosquera is currently on Keppra and her last seizure was about 1 year ago. Currently she denies headache or weakness or numbness. No blurred vision or slurred speech. No vomiting or diarrhea. No cough and no chest pain or dyspnea. No dysuria. Smoking, alcohol or illicit drugs. Screen and feeling sad because her about 2 months ago from [employer] with fever of 103. And she feels that because her [id number] accused her of killing him which states it is Y Steven. Patient denies any suicidal or homicidal ideation to me Vitals are stable. Labs including CBC, INR, BMP, liver enzymes and urinalysis are unremarkable. EKG showing sinus bradycardia at [address]-T changes. Chest x-ray: Chronic changes with cardiomegaly without acute pulmonary process. In the emergency room patient resumed her dose of Keppra Psychiatric and cartilage team were consulted Review of Systems CONSTITUTIONAL: No fever, no malaise, no fatigue. HEENT: No recent visual problems or hearing problems. Denied any sore throat. CARDIOVASCULAR: No orthopnea, PND, no palpitations, no syncope. PULMONARY: No shortness of breath, no cough, no hemoptysis. GASTROINTESTINAL: No diarrhea, no nausea, no vomiting, no abdominal pain. Normoactive bowel sounds. NEUROLOGICAL: No headaches, no weakness, no numbness. HEMATOLOGICAL: Denies any bleeding or petechiae. GENITOURINARY: Denies any burning micturition, frequency, or urgency. MUSCULOSKELETAL/RHEUMATOLOGICAL: Denies any joint pain, swelling, or any muscle pain. ENDOCRINE: Denies any polyuria or polydipsia. Past Medical History Past Medical History: Chest Pain / Angina, CVA/TIA, Hyperlipidemia, Hypertension, Myocardial Infarction (MO), Osteoarthritis (OA), Seizure Disorder, Syncope, Thyroid Disorder Additional Past Medical History / Comment(s): Seizures-last one in fall of 2014, syncopal episode-once due to gastric ulcer bleed .given transfusionTIA(no residual problems), DJD, generalized arthritis, hypothyroid, [place] in 2003. Last Myocardial Infarction Date:: 2003 History of Any Multi-Drug Resistant Organisms: None Reported Past Surgical History: Adenoidectomy, Appendectomy, Section, Heart Catheterization, Hysterectomy, Orthopedic Surgery, Tonsillectomy Additional Past Surgical History / Comment(s): 09/06/15 EGD with bx(neg) and colonoscopy, C-Sections x3, hammer toe sx ananya feet, gland removed from L side of neck, 2003 cardiac cath Past Anesthesia/Blood Transfusion Reactions: No Reported Reaction Additional Past Anesthesia/Blood Transfusion Reaction / Comment(s): difficulty waking after aa. Pt states she has received blood before without reaction. Past Psychological History: No Psychological Hx Reported Additional Psychological History / Comment(s): Pt resides with spouse and a dog. She is independent. She drives. Smoking Status: Never smoker Past Alcohol Use History: None Reported Past Drug Use History: None Reported - Past Family History Mother Family Medical History: Dementia Additional Family Medical History / Comment(s): Had 13 children. She of dementia at the age of 81 yrs. Father Family Medical History: Myocardial Infarction ([place]) Additional Family Medical History / Comment(s): from head injury Medications and Allergies Home Medications Medication Instructions Recorded Confirmed Type levETIRAcetam [Keppra] 500 mg PO BID 05/22/15 01/08/22 History Levothyroxine Sodium [Synthroid] 88 mcg PO DAILY 12/17/15 01/08/22 History Pantoprazole [Protonix] 40 mg PO DAILY 04/03/19 01/08/22 History Atorvastatin [Lipitor] 20 mg PO HS 03/19/21 01/08/22 History Lisinopril-Hctz 20-12.5 mg 1 tab PO DAILY 03/19/21 01/08/22 History [Zestoretic 20-12.5] Dorzolamide 2% [Trusopt 2%] 1 drop BOTH EYES BID 01/08/22 01/08/22 History Allergies Allergy/AdvReac Type Severity Reaction Status Date / Time bee venom protein (honey bee) Allergy Anaphylaxis Verified 01/08/22 11:21 codeine AdvReac Hallucinati Verified 01/08/22 11:21 ons ibuprofen AdvReac ulcer Verified 01/08/22 11:21 monosodium glutamate [MSG] AdvReac Nausea & Verified 01/08/22 11:21 Vomiting & Diarrhea NSAIDS (Non-Steroidal AdvReac ulcer Verified 01/08/22 11:21 Anti-Inflamma sodium AdvReac Nausea & Verified 01/08/22 11:21 Vomiting & Diarrhea Physical Exam Vitals: Vital Signs Temp Pulse Pulse Resp BP BP Pulse Ox 01/09/22 02:52 98.0 F 56 L 19 120/75 98 01/08/22 19:03 98.4 F 64 18 169/88 97 01/08/22 16:05 159/79 01/08/22 14:56 97.7 F 59 L 16 181/80 98 01/08/22 13:21 57 L 16 180/98 97 01/08/22 10:06 97.8 F 65 16 196/106 96 Intake and Output 01/08/22 01/09/22 01/09/22 22:59 06:59 14:59 Intake Total 237 Balance 237 Intake: Oral 237 Other: Voiding Method Toilet Toilet # Voids 2 2 GENERAL: The patient is alert and oriented x3, not in any acute distress. Well developed, well nourished. HEENT: Pupils are round and equally reacting to light. EOMI. No scleral icterus. No conjunctival pallor. Normocephalic, atraumatic. No pharyngeal erythema. No thyromegaly. CARDIOVASCULAR: S1 and S2 present. No murmurs, rubs, or gallops. PULMONARY: Chest is clear to auscultation, no wheezing or crackles. ABDOMEN: Soft, nontender, nondistended, normoactive bowel sounds. No palpable organomegaly. MUSCULOSKELETAL: No joint swelling or deformity. EXTREMITIES: No cyanosis, clubbing, or pedal edema. NEUROLOGICAL: Gross neurological examination did not reveal any focal deficits. SKIN: No rashes. No petechiae Results CBC & Chem 7: 01/08/22 10:30 01/08/22 10:30 Labs: Abnormal Lab Results - Last 24 Hours (Table) 01/08/22 01/08/22 Range/Units 10:30 10:30 Lymphocytes # 0.9 L (1.0-4.8) k/uL Sodium 133 L (137-145) mmol/L Glucose 101 H (74-99) mg/dL Thrombosis Risk Factor Assmnt - Choose All That Apply Each Risk Factor Represents 2 Points: Age 61-74 years Thrombosis Risk Factor Assessment Total Risk Factor Score: 2 Thrombosis Risk Factor Assessment Level: Low Risk Assessment and Plan Assessment: Acute syncope possible vertigo Bereavement and sadness, possible depression. No suicidal ideation History of CVA/TIA History of seizure on medication History of syncope Hypothyroidism Hypertension Hyperlipidemia Plan: This is a pleasant 71 years old female who presents with syncope We'll check orthostatic vitals Check TSH Cardiology and psychiatric consult are already called consult neurologist regarding her vertigo, syncope and history of seizure. Labs and medication were reviewed.. Continue same treatment. Continue with symptomatic treatment. Resume home medication. Monitor lytes and vitals. DVT and GI prophylaxis. Further recommendations depends on the clinical course of t he patient DVT prophylaxis: Subcutaneous heparin GI Prophylaxis: Pepcid PT/OT physical therapy evaluation: Pending
--- NOTE | 2022-01-09 10:32 | P.CRDCN ---
History of Present Illness History of present illness: This is a pleasant 71-year-old female past medical history significant for hypertension, dyslipidemia, seizure disorder, syncope, TIA. She follows with Dr. Alcazar. We have been asked to see in consultation for syncope. Patient presents to the emergency department after a syncopal episode. She states she had increased stress at home secondary to refrigerator mover cancelling on her. She was sitt ing in the chair. She had acute onset of dizziness, she states she felt the room spinning. She called her neighbor next door for help. She did fall to the floor and lost consciousness. She was diaphoretic. Unknown how long the patient was unconscious. She denies hitting her head. She denies any chest pain, shortness of breath, palpitations, nausea, vomiting, loss of bladder or bowel. She denies any change in her vision or speech. She denies any history of CAD, SD, diabetes. DIAGNOSTICS EKG reveals sinus bradycardia, rate 53, T wave inversions in leads III, V5, V6. Nonspecific abnormalities Telemetry tracings indicate sinus bradycardia HR 50s no arrhythmia or significant pauses noted. Laboratory reviewed, troponin negative 2, CBC unremarkable, sodium 133, potassium 4.0, BUN 14, syncope and 0.5, magnesium 2.2 Echocardiogram revealed EF 55-60% with mild mitral regurgitation and mild tricuspid regurgitation no significant wall motion abnormalities Current cardiac medications include lisinoprilnodular thiazide 2012 0.5 mg daily, atorvastatin 20 mg nightly Most recent Cardiolite stress test 01/2016, inconclusive, no clear cut ischemia due to patient only walking for 6 minutes Event monitor in 2016- no significant arrhythmia REVIEW OF SYSTEMS At the time of my exam: CONSTITUTIONAL: +syncope. Denies fever or chills. CARDIOVASCULAR: Denies chest pain, shortness of breath, orthopnea, PND or palpitations. RESPIRATORY: Denies cough. GASTROINTESTINAL: Denies abdominal pain, diarrhea, constipation, nausea or vomiting. MUSCULOSKELETAL: Denies myalgias. NEUROLOGIC: Denies numbness, tingling, headacbe or weakness. ENDOCRINE: Denies fatigue, weight change, polydipsia or polyurina. GENITOURINARY: Denies burning, hematuria or urgency with micturation. HEMATOLOGIC: Denies history of anemia or bleeding. PHYSICAL EXAMINATION Vitals reviewed CONSTITUTIONAL: No apparent distress. HEENT: Head is normocephalic. Pupils are equal, round. Sclerae anicteric. Mucous membranes of the mouth are moist. No JVD. No carotid bruit. CHEST EXAMINATION: Lungs are clear to auscultation. No chest wall tenderness is noted on palpation or with deep breathing. HEART EXAMINATION: Regular rate and rhythm. S1, S2 heard. No murmurs, gallops or rub. ABDOMEN: Soft, nontender. Positive bowel sounds. EXTREMITIES: 2+ peripheral pulses, no lower extremity edema and no calf tenderness. NEUROLOGIC EXAMINATION: Patient is awake, alert and oriented x3. ASSESSMENT Syncopal episode, likely vasovagal History of epilepsy History of hypertension Hyperlipidemia PLAN Echo revealed EF 55-60%, no significant wall motion abnormalities Orthostatics negative Recommend 30 day event monitor placed prior to discharge. Continue home cardiac medications If patient is improved and no further symptoms, ok to discharge later today from a cardiology perspective Patient to follow up outpatient with Dr. Alcazar Nurse Practitioner note has been reviewed, I agree with a documented findings and plan of care. Patient was seen and examined. Past Medical History Past Medical History: Chest Pain / Angina, CVA/TIA, Hyperlipidemia, Hypertension, Myocardial Infarction (SD), Osteoarthritis (OA), Seizure Disorder, Syncope, Thyroid Disorder Additional Past Medical History / Comment(s): Seizures-last one in fall of 2014, syncopal episode-once due to gastric ulcer bleed .given transfusionTIA(no residual problems), DJD, generalized arthritis, hypothyroid, [place] in 2003. Last Myocardial Infarction Date:: 2003 History of Any Multi-Drug Resistant Organisms: None Reported Past Surgical History: Adenoidectomy, Appendectomy, Section, Heart Catheterization, Hysterectomy, Orthopedic Surgery, Tonsillectomy Additional Past Surgical History / Comment(s): 09/06/15 EGD with bx(neg) and colonoscopy, C-Sections x3, hammer toe sx ananya feet, gland removed from L side of neck, 2003 cardiac cath Past Anesthesia/Blood Transfusion Reactions: No Reported Reaction Additional Past Anesthesia/Blood Transfusion Reaction / Comment(s): difficulty waking after aa. Pt states she has received blood before without reaction. Past Psychological History: No Psychological Hx Reported Additional Psychological History / Comment(s): Pt resides with spouse and a dog. She is independent. She drives. Smoking Status: Never smoker Past Alcohol Use History: None Reported Past Drug Use History: None Reported - Past Family History Mother Family Medical History: Dementia Additional Family Medical History / Comment(s): Had 13 children. She of dementia at the age of 81 yrs. Father Family Medical History: Myocardial Infarction (SD) Additional Family Medical History / Comment(s): from head injury Medications and Allergies Home Medications Medication Instructions Recorded Confirmed Type levETIRAcetam [Keppra] 500 mg PO BID 05/22/15 01/08/22 History Levothyroxine Sodium [Synthroid] 88 mcg PO DAILY 12/17/15 01/08/22 History Pantoprazole [Protonix] 40 mg PO DAILY 04/03/19 01/08/22 History Atorvastatin [Lipitor] 20 mg PO HS 03/19/21 01/08/22 History Lisinopril-Hctz 20-12.5 mg 1 tab PO DAILY 03/19/21 01/08/22 History [Zestoretic 20-12.5] Dorzolamide 2% [Trusopt 2%] 1 drop BOTH EYES BID 01/08/22 01/08/22 History Allergies Allergy/AdvReac Type Severity Reaction Status Date / Time bee venom protein (honey bee) Allergy Anaphylaxis Verified 01/08/22 11:21 codeine AdvReac Hallucinati Verified 01/08/22 11:21 ons ibuprofen AdvReac ulcer Verified 01/08/22 11:21 monosodium glutamate [MSG] AdvReac Nausea & Verified 01/08/22 11:21 Vomiting & Diarrhea NSAIDS (Non-Steroidal AdvReac ulcer Verified 01/08/22 11:21 Anti-Inflamma sodium AdvReac Nausea & Verified 01/08/22 11:21 Vomiting & Diarrhea Physical Exam Vitals: Vital Signs Temp Pulse Pulse Pulse Pulse Pulse Resp 01/09/22 09:04 57 L 76 56 L 01/09/22 07:29 98.1 F 53 L 16 01/09/22 02:52 98.0 F 56 L 19 01/08/22 19:03 98.4 F 64 18 01/08/22 16:05 01/08/22 14:56 97.7 F 59 L 16 01/08/22 13:21 57 L 16 01/08/22 10:06 97.8 F 65 16 BP BP BP BP BP Pulse Ox 01/09/22 09:04 137/86 123/84 145/76 01/09/22 07:29 133/77 94 L 01/09/22 02:52 120/75 98 01/08/22 19:03 169/88 97 01/08/22 16:05 159/79 01/08/22 14:56 181/80 98 01/08/22 13:21 180/98 97 01/08/22 10:06 196/106 96 Intake and Output 01/08/22 01/09/22 01/09/22 22:59 06:59 14:59 Intake Total 237 Balance 237 Intake: Oral 237 Other: Voiding Method Toilet Toilet # Voids 2 2 Results 01/08/22 10:30 01/08/22 10:30 Cardiac Enzymes 01/08/22 01/08/22 01/08/22 Range/Units 10:30 10:30 13:30 AST 23 (14-36) U/L Troponin I <0.012 <0.012 (0.000-0.034) ng/mL Coagulation 01/08/22 Range/Units 10:30 PT 10.5 (9.0-12.0) sec APTT 22.6 (22.0-30.0) sec CBC 01/08/22 Range/Units 10:30 WBC 8.1 (3.8-10.6) k/uL RBC 4.66 (3.80-5.40) m/uL Hgb 14.4 (11.4-16.0) gm/dL Hct 43.5 (34.0-46.0) % Plt Count 321 (150-450) k/uL Comprehensive Metabolic Panel 01/08/22 Range/Units 10:30 Sodium 133 L (137-145) mmol/L Potassium 4.0 (3.5-5.1) mmol/L Chloride 99 (98-107) mmol/L Carbon Dioxide 29 (22-30) mmol/L BUN 14 (7-17) mg/dL Creatinine 0.56 (0.52-1.04) mg/dL Glucose 101 H (74-99) mg/dL Calcium 9.5 (8.4-10.2) mg/dL AST 23 (14-36) U/L ALT 23 (4-34) U/L Alkaline Phosphatase 87 (38-126) U/L Total Protein 7.1 (6.3-8.2) g/dL Albumin 4.3 (3.5-5.0) g/dL Current Medications Generic Name Dose Route Start Last Admin Trade Name Yuliya PRN Reason Stop Dose Admin Acetaminophen 650 mg 01/08/22 17:54 01/08/22 20:46 Acetaminophen Tab 325 Mg Tab PO 650 mg Q6HR PRN Administration Fever and/ or Mild Pain Atorvastatin Calcium 20 mg 01/08/22 21:00 01/08/22 20:45 Atorvastatin 20 Mg Tab PO 20 mg HS LOY Administration Dorzolamide HCl 1 drops 01/08/22 21:00 01/09/22 08:56 Dorzolamide Hcl 2% Drops 10 Ml Btl BOTH EYES 1 drops BID LOY Administration Famotidine 20 mg 01/09/22 21:00 Famotidine 20 Mg/2 Ml Vial IV Q12HR LOY Lisinopril/HCTZ 1 each 01/09/22 09:00 01/09/22 08:56 Lisinopril-Hctz 20-12.5 Mg 1 Each Tab PO 1 each DAILY LOY Administration Heparin Sodium (Porcine) 5,000 unit 01/09/22 21:00 Heparin Sodium,Porcine/Pf 5,000 Unit/0.5 Ml Syringe SQ Q12HR LOY Levetiracetam 500 mg 01/08/22 21:00 01/09/22 08:56 Levetiracetam 500 Mg Tab PO 500 mg BID LOY Administration Levothyroxine Sodium 88 mcg 01/09/22 06:30 01/09/22 05:28 Levothyroxine 88 Mcg Tab PO 88 mcg 0630 LOY Administration Pantoprazole Sodium 40 mg 01/09/22 09:00 01/09/22 08:56 Pantoprazole 40 Mg Tablet PO 40 mg DAILY LOY Administration Intake and Output 01/08/22 01/09/22 01/09/22 22:59 06:59 14:59 Intake Total 237 Balance 237 Intake: Oral 237 Other: Voiding Method Toilet Toilet # Voids 2 2 01/08/22 10:30 01/08/22 10:30
--- NOTE | 2022-01-09 14:56 | P.CN ---
Psychiatric Consult - . Consult date: 01/09/22 Consult:: 01/09/22 13:07 IDENTIFYING DATA: This patient is a 71-year-old female, currently , lives in a house, has 3 kids. REASON FOR REFERRAL: Psychiatry was consulted for anxiety and depression after in October HISTORY OF PRESENT ILLNESS: The patient presented to the hospital on 01/08 after a syncopal episode. Patient is also exhibiting dizziness which resulted in the ambulance. Patient has a cardiac history. She was noted to be crying and emotional during examination in the hospital and consult to psychiatry was placed. Clinical Team Lead will be seeing patient today at the bedside. Patient claimed that her in October of this year. Patient immediately began crying when speaking about her . She states that she was helping to take care of him while he got covid-19. He apparently developed pneumonia and from it. She states that his family has been accusing her of neglecting him and making her feel terrible about his . She states that she feels she has little support in the area and claims that her son is coming in January to pick her up and move her to [place] where he lives. She states that she has been trying to clean out the house who were finds it overwhelming. She states that she has been trying to grieve her 's and has been feeling depressed since his . She is denying any anxiety at this time. She claims that she has been coping as much as she can and has a dog that she is taking care of. She claims that she is looking forward to moving to [place] and was future oriented. She claims that her sleep has been fair and appetite as been fair. At this time patient denies any suicidal or homical ideations, intent or plan. Patient denies any auditory, visual hallucinations and denies any paranoia or delusions. Patients admits to using no recreational drugs or cigarettes. PAST PSYCHIATRIC HISTORY: Patient has no known psychiatric history. Patient denies being on any psychiatric medications. Patient denies any previous psychiatric hospitalizations. Patient denies any psychiatric outpatient follow- up. Patient denies any history of suicide attempts in the past. Past Medical History: Chest Pain / Angina, CVA/TIA, Hyperlipidemia, Hypertension, Myocardial Infarction (MT), Osteoarthritis (OA), Seizure Disorder, Syncope, Thyroid Disorder Additional Past Medical History / Comment(s): Seizures-last one in fall of 2014, syncopal episode-once due to gastric ulcer bleed .given transfusionTIA(no residual problems), DJD, generalized arthritis, hypothyroid, [place] in 2004. ALLERGIES: as per EMR. CHEMICAL DEPENDENCY HISTORY: as per HPI. FAMILY PSYCHIATRIC/SUBSTANCE USE HISTORY: denies SOCIAL HISTORY: Patient was born and raised in [place] [facility]. She states that she completed high school and also 2 years of college. 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 She states that she retired about 5 years ago. She currently lives alone in a house is currently . She has 3 kids. MENTAL STATUS EXAM: General Appearance: Patient appears to be elderly, stated age is alert, attempts to cooperate. Patient appears to have fair hygiene and grooming wearing hospital gown with fair eye contact. Behavior: Patient is calmly lying in bed without any agitated behavior. Tearful at times when speaking about her . Speech: Patient's speech is fluent and nonpressured. Mood/Affect: Patient reports their mood is "depressed", affect is congruent and tearful Suicidality/Homicidality: Patient denies having any suicidal or homicidal ideation intent or plan. Perceptions: Patient denies any visual hallucinations and denies any auditory hallucinations Though content/process: There is no evidence of any delusional thought content and thought process is linear and goal-directed. Memory and concentration: AOX3, grossly intact for the purposes of this session. 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 -Patient DOES NOT have decision making capacity at this time and is unable to reason through and communicate/appreciate the risks, benefits and alternatives to treatment. -Delirium precautions recommended with patient including - avoiding use of narcotics and DECAL DECORATOR sedatives, limit anticholinergic medications when possible, frequent re-orientation, minimize use of restraints, open window shades during the day and close them at night -Would recommend the following medication changes/additions: zoloft 25 mg daily for mood, melatonin 3 mg qhs for insomnia -engineering production worker to provide patient with outpatient mental health/psychiatry resources for appropriate follow up upon discharge -Communicated plan to patient's nurse -Will continue to follow along tomorrow and likely sign off then. -Please contact with any questions. 01/09/22 13:49
[2022-01-09] MEDS: SERTRALINE 25 MG TAB PO SCH (15:41)
[2022-01-09] MEDS: ATORVASTATIN 20 MG TAB PO SCH (20:25)
[2022-01-09] MEDS: FAMOTIDINE 20 MG/2 ML VIAL IV SCH (20:26)
[2022-01-09] MEDS: HEPARIN SODIUM,PORCINE/PF 5,000 UNIT/0.5 ML SYRINGE SQ SCH (20:26)
[2022-01-09] MEDS ORDERED: MELATONIN 3 MG TABLET PO SCH (21:00)
[2022-01-10] MEDS: LEVOTHYROXINE 88 MCG TAB PO SCH (05:41)
--- NOTE | 2022-01-10 07:39 | P.PN ---
Progress Note - Text Progress Note Date: 01/10/22 The patient is a pleasant 71-year-old female patient with history of hypertension and dyslipidemia was admitted to the hospital with syncope we felt to be likely vasovagal. She underwent an echo which revealed normal left ventricular systolic function and also she had an orthostatic blood pressure check came in to be unremarkable. She was seen this morning. She is asymptomatic. She is stable hemodynamically. From the cardiovascular standpoint of view, the patient can be discharged home on event monitor and follow-up with her chemical instrumentation officer.
[2022-01-10] MEDS: SERTRALINE 25 MG TAB PO SCH (08:21)
[2022-01-10] MEDS: HEPARIN SODIUM,PORCINE/PF 5,000 UNIT/0.5 ML SYRINGE SQ SCH (08:21)
[2022-01-10] MEDS: levETIRAcetam 500 MG TAB PO SCH (08:21)
[2022-01-10] MEDS: DORZOLAMIDE HCL 2% DROPS 10 ML BTL BOTH EYES SCH (08:21)
[2022-01-10] MEDS: LISINOPRIL-HCTZ 20-12.5 MG 1 EACH TAB PO SCH (08:21)
[2022-01-10] MEDS: FAMOTIDINE 20 MG/2 ML VIAL IV SCH (08:21)
[2022-01-10] MEDS: PANTOPRAZOLE 40 MG TABLET PO SCH (08:21)
[2022-01-10 08:35] VITALS: PULSE 53
[2022-01-10 10:18] LABS: Glucose,Whole Blood 121 mg/dL (75-99)
--- NOTE | 2022-01-10 13:19 | P.PN ---
Progress Note - Text Progress Note Date: 01/10/22 Interval History: Patient was seen today for psychiatric follow-up regarding patient's depression. Patient appears to have a brighter affect today. She reports improvement in her mood and anxiety. She states that she is looking forward to moving to [place] with her son and spoke about the different things that she wants to do there. She appeared to be fairly future oriented. She also shared other memories of her and them getting and was not tearful today. She states that she slept much better last night. At this time patient denies any suicidal or homical ideations, intent or plan. Patient denies any auditory, visual hallucinations and denies any paranoia or delusions. Patient denies any side effects from the medications and has been compliant with meds. Mental Status Exam: General Appearance: Patient appears to be elderly, stated age is alert, attempts to cooperate. Patient appears to have fair hygiene and grooming wearing hospital gown with fair eye contact. Behavior: Patient is calmly lying in bed without any agitated behavior. Not tearful today. Speech: Patient's speech is fluent and nonpressured. Mood/Affect: Patient reports their mood is "better", affect is congruent Suicidality/Homicidality: Patient denies having any suicidal or homicidal ideation intent or plan. Perceptions: Patient denies any visual hallucinations and denies any auditory hallucinations Though content/process: There is no evidence of any delusional thought content and thought process is linear and goal-directed. Future oriented. Memory and concentration: AOX3, grossly intact for the purposes of this session. 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 -Patient DOES NOT have decision making capacity at this time and is unable to reason through and communicate/appreciate the risks, benefits and alternatives to treatment. -Delirium precautions recommended with patient including - avoiding use of narcotics and [employer] sedatives, limit anticholinergic medications when possible, frequent re-orientation, minimize use of restraints, open window shades during the day and close them at night -Would recommend the following medication changes/additions: Continue with zoloft 25 mg daily for mood, melatonin 3 mg qhs for insomnia -plugger worker to provide patient with outpatient mental health/psychiatry resources for appropriate follow up upon discharge -Communicated plan to patient's nurse -At this time psychiatry will sign off. -Please contact with any questions.
[2022-01-10 19:23] VITALS: BP 127/67; TEMP 97.7
--- NOTE | 2022-01-11 20:09 | P.DS ---
Providers Date of admission: 01/08/22 13:10 Expected date of discharge: 01/10/22 Attending physician: Sherwin Hernandez Consults: 01/08/22 12:17 Consult Physician Routine Consulting Provider: Ponce Burgess Consult Reason/Comments: anxiety/depression after in October Do you want consulting provider notified?: Yes 01/08/22 14:37 Consult Physician Routine Consulting Provider: Abdullahi Alcazar Consult Reason/Comments: syncopal episode Do you want consulting provider notified?: Yes Primary care physician: Sherwin Hernandez Hospital Course: 71 years old female with past medical history of CVA/TIA, Hyperlipidemia, Hypertension, Osteoarthritis (OA), Seizure Disorder, Syncope, hypothyroidism Patient is complaining of syncope. Patient states that she presents because she was feeling clammy and sweaty herself, she felt the room spinning a little bit and within 3 minutes while she was trying to lock the front door for her neighbor to come and she passed out, she was on the floor for about 5 minutes. denies any tongue biting. no urine or bowel incontinence, no reported or witnessed seizure-like activity but patient was alone with her dog only. Patient is currently on Keppra and her last seizure was about 1 year ago. Currently she denies headache or weakness or numbness. No blurred vision or slurred speech. No vomiting or diarrhea. No cough and no chest pain or dyspnea. No dysuria. Smoking, alcohol or illicit drugs. Screen and feeling sad because her about 2 months ago from [employer] with fever of 103. And she feels that because her [id number] accused her of killing him which states it is Y Steven. Patient denies any suicidal or homicidal ideation to me Vitals are stable. Labs including CBC, INR, BMP, liver enzymes and urinalysis are unremarkable. EKG showing sinus bradycardia at [address]-T changes. Chest x-ray: Chronic changes with cardiomegaly without acute pulmonary process. In the emergency room patient resumed her dose of Keppra Psychiatric and cartilage team were consulted Acute syncope possible vertigo Bereavement and sadness, possible depression. No suicidal ideation History of CVA/TIA History of seizure on medication History of syncope Hypothyroidism Hypertension Hyperlipidemia This is a pleasant 71 years old female who presents with syncope We'll check orthostatic vitals Check TSH Cardiology and psychiatric consult are already called consult neurologist regarding her vertigo, syncope and history of seizure. Labs and medication were reviewed.. Continue same treatment. Continue with symptomatic treatment. Resume home medication. Monitor lytes and vitals. DVT and GI prophylaxis. Further recommendations depends on the clinical course of the patient DVT prophylaxis: Subcutaneous heparin GI Prophylaxis: Pepcid Patient responded well to treatment and didn't have any complications and was cleared by neurology and cardiology and is discharged home in a stable condition Patient Condition at Discharge: Good Plan - Discharge Summary Discharge Rx Participant: No New Discharge Prescriptions: New Sertraline [Zoloft] 25 mg PO DAILY 30 Days #30 tab Continue levETIRAcetam [Keppra] 500 mg PO BID Levothyroxine Sodium [Synthroid] 88 mcg PO DAILY Pantoprazole [Protonix] 40 mg PO DAILY Lisinopril-Hctz 20-12.5 mg [Zestoretic 20-12.5] 1 tab PO DAILY Atorvastatin [Lipitor] 20 mg PO HS Dorzolamide 2% [Trusopt 2%] 1 drop BOTH EYES BID Discharge Medication List levETIRAcetam [Keppra] 500 mg PO BID 05/22/15 [History] Levothyroxine Sodium [Synthroid] 88 mcg PO DAILY 12/17/15 [History] Pantoprazole [Protonix] 40 mg PO DAILY 04/03/19 [History] Atorvastatin [Lipitor] 20 mg PO HS 03/19/21 [History] Lisinopril-Hctz 20-12.5 mg [Zestoretic 20-12.5] 1 tab PO DAILY 03/19/21 [History] Dorzolamide 2% [Trusopt 2%] 1 drop BOTH EYES BID 01/08/22 [History] Sertraline [Zoloft] 25 mg PO DAILY 30 Days #30 tab 01/10/22 [Rx] Follow up Appointment(s)/Referral(s): Sherwin Hernandez MD [Primary Care Provider] - 1-2 days Abdullahi Alcazar MD [STAFF PHYSICIAN] - 6 Weeks Patient Instructions/Handouts: Syncope (DC) Discharge/Stand Alone Forms: Community Resources, Outpatient Counseling Discharge Disposition: HOME SELF-CARE
== END 2022-01-10 17:45 | disposition home or self-care (01) ==
LOC: EC 10:03 → 6NMEDSUR 13:10
PROVIDERS: ADMIT Family Medicine; ATTEND Family Medicine
DX: R55 Syncope and collapse (principal); E78.5 Hyperlipidemia, unspecified; M19.90 Unspecified osteoarthritis, unspecified site; G40.909 Epilepsy, unspecified, not intractable, without status epilepticus; E03.9 Hypothyroidism, unspecified; F32.9 Major depressive disorder, single episode, unspecified; F43.23 Adjustment disorder with mixed anxiety and depressed mood; Z63.79 Other stressful life events affecting family and household; R61 Generalized hyperhidrosis; R23.1 Pallor; R00.1 Bradycardia, unspecified; I11.9 Hypertensive heart disease without heart failure; G47.00 Insomnia, unspecified; I25.2 Old myocardial infarction; I08.1 Rheumatic disorders of both mitral and tricuspid valves; Z63.4 Disappearance and death of family member; Z86.73 Personal history of transient ischemic attack (TIA), and cerebral infarction without residual deficits; Z79.899 Other long term (current) drug therapy; Z79.890 Hormone replacement therapy; Z90.49 Acquired absence of other specified parts of digestive tract; Z90.710 Acquired absence of both cervix and uterus; Z88.5 Allergy status to narcotic agent; Z88.8 Allergy status to other drugs, medicaments and biological substances; Z91.030 Bee allergy status; W18.30XA Fall on same level, unspecified, initial encounter; Z82.49 Family history of ischemic heart disease and other diseases of the circulatory system; Z81.8 Family history of other mental and behavioral disorders
CPT/HCPCS: 96376; 96372 ×2; 96374; 82075; 99285; 36415; 93005; 93306; 93270; 97161; 80053; 84443; 83735; 84484; 85025; 85610; 85730; 81003; 71046; G0378 ×3; J1644 ×2